=== PATIENT | male | born 1955 ===

== ENCOUNTER 2020-01-03 08:48 | Outpatient (REF) | payer OTHER, SELFPAY ==
[2020-01-03 09:50] LABS: MANUAL DIFF FLAG NO
[2020-01-03 10:02] LABS: Basophils Percent Auto 0.5 % (0-2); Eosinophils Absolute Auto 0.1 X10*3/uL (0.0-0.4); Eosinophils Percent Auto 1.8 % (0-4); Hematocrit 44.4 % (42-52); Hemoglobin 14.9 g/dl (14.0-18.0); Imm Gran Abs Auto 0.02 X10*3/uL (0.00-0.03); Imm Gran Pct Auto 0.5 % (0.0-0.4); Lymphocytes Percent Auto 25.6 % (20-40); Mean Corpuscular HGB Conc 33.6 g/dl (31.0-36.0); Mean Corpuscular Hemoglobin 33.5 pg (27.0-33.0); Mean Corpuscular Volume 99.8 fL (80-98); Mean Platelet Volume 10.2 fL (9.4-12.4); Monocytes Absolute Auto 0.4 X10*3/uL (0.1-1.2); Monocytes Percent Auto 11.4 % (2-11); Neutrophils Absolute Auto 2.3 X10*3/uL (2.0-8.3); Neutrophils Percent Auto 60.2 % (45-73); Platelet Count 154 X10*3/uL (160-400); Red Blood Count 4.45 X10*6/uL (4.60-5.80); Red Cell Distribution Width 12.5 % (11.0-16.0); White Blood Count 3.9 X10*3/uL (4.8-10.8)
[2020-01-03 10:28] LABS: Anion Gap 11 (12-20); Blood Urea Nitrogen 18 mg/dL (9-16); Calcium 9.2 mg/dL (8.4-10.2); Carbon Dioxide 29 mmol/L (22-29); Chloride 106 mmol/L (96-108); Cholesterol 153 mg/dL; Estimated Glomerular Filt Rate 56; Glucose Random 130 mg/dL (60-115); HDL Cholesterol 38 mg/dL; LDL Cholesterol Calculated 82 mg/dl; Potassium 4.6 mmol/l (3.3-5.1); Sodium 141 mmol/L (135-145); Triglycerides 165 mg/dL
[2020-01-03 10:51] LABS: TSH reflex Free T4 3.09 mIU/mL (0.32-4.0)
== END 2020-01-03 08:49 | disposition home or self-care (01) ==
LOC: HO.LAB 08:48
PROVIDERS: PCP Internal Medicine; Visit Provider Internal Medicine Cardiovascular Disease
DX: I95.1 Orthostatic hypotension (principal); I25.10 Atherosclerotic heart disease of native coronary artery without angina pectoris; Z95.5 Presence of coronary angioplasty implant and graft
CPT/HCPCS: 36415; 80048; 80061; 84443; 85025

== ENCOUNTER 2020-01-30 10:54 | Outpatient (REF) | payer OTHER, SELFPAY | END 2020-01-30 10:55 | disposition home or self-care (01) | LOC: HO.LAB 10:54 | PROVIDERS: Visit Provider Internal Medicine | DX: Z20.828 Contact with and (suspected) exposure to other viral communicable diseases (principal) | CPT/HCPCS: U0003 ==

== ENCOUNTER 2020-02-16 10:16 | Outpatient (REF) | payer OTHER, SELFPAY | END 2020-02-16 10:17 | disposition home or self-care (01) | LOC: HO.LAB 10:16 | PROVIDERS: Visit Provider Internal Medicine | DX: Z20.828 Contact with and (suspected) exposure to other viral communicable diseases (principal) | CPT/HCPCS: C9803; U0003 ==

== ENCOUNTER → 2020-06-07 14:40 | Outpatient (BNV) | payer OTHER, SELFPAY | PROVIDERS: PCP Internal Medicine; Visit Provider Internal Medicine Medical Oncology | DX: C81.90 Hodgkin lymphoma, unspecified, unspecified site (principal); E53.8 Deficiency of other specified B group vitamins | CPT/HCPCS: 99213; 99214 ==

== ENCOUNTER → 2020-12-16 13:03 | Outpatient (BNVA) | payer OTHER, SELFPAY | PROVIDERS: PCP Internal Medicine; Referring Provider Internal Medicine; Visit Provider Internal Medicine Cardiovascular Disease | DX: I25.10 Atherosclerotic heart disease of native coronary artery without angina pectoris (principal); I95.1 Orthostatic hypotension; I49.8 Other specified cardiac arrhythmias; Z85.71 Personal history of Hodgkin lymphoma; Z94.84 Stem cells transplant status; Z95.5 Presence of coronary angioplasty implant and graft; Z79.899 Other long term (current) drug therapy | CPT/HCPCS: 93005 ==

== ENCOUNTER 2021-02-25 12:20 | Outpatient (REF) | payer OTHER, SELFPAY ==
[2021-02-25 14:21] LABS: COVID-19 Test Negative (Negative)
== END 2021-02-25 12:21 | disposition home or self-care (01) ==
LOC: HO.LAB 12:20
PROVIDERS: PCP Internal Medicine; Visit Provider Internal Medicine
DX: Z20.822 Contact with and (suspected) exposure to COVID-19 (principal)
CPT/HCPCS: 36415; 87635; C9803

== ENCOUNTER 2021-03-29 12:17 | Outpatient (REF) | payer OTHER, SELFPAY ==
[2021-03-29 14:27] LABS: Binax Internal Control QC Valid; Binax Now Covid-19 Ag Positive (Negative)
[2021-03-29 14:28] LABS: Binax Lot number: 9864
== END 2021-03-29 12:18 | disposition home or self-care (01) ==
LOC: HO.LAB 12:17
PROVIDERS: Visit Provider Internal Medicine
DX: Z20.822 Contact with and (suspected) exposure to COVID-19 (principal)
CPT/HCPCS: 36415; C9803

== ENCOUNTER 2021-12-06 09:48 | Outpatient (REF) | payer OTHER, SELFPAY ==
[2021-12-06 09:55] LABS: MANUAL DIFF FLAG NO
[2021-12-06 10:27] LABS: Basophils Percent Auto 0.7 % (0-2); Eosinophils Absolute Auto 0.1 X10*3/uL (0.0-0.4); Eosinophils Percent Auto 1.7 % (0-4); Hematocrit 43.5 % (42.0-52.0); Imm Gran Abs Auto 0.01 X10*3/uL (0.00-0.03); Imm Gran Pct Auto 0.3 % (0.0-0.4); Lymphocytes Percent Auto 32.6 % (20-40); Mean Corpuscular HGB Conc 34.5 g/dl (31.0-36.0); Mean Corpuscular Hemoglobin 34.2 pg (27.0-33.0); Mean Corpuscular Volume 99.3 fL (80.0-98.0); Mean Platelet Volume 10.5 fL (9.4-12.4); Monocytes Absolute Auto 0.3 X10*3/uL (0.1-1.2); Monocytes Percent Auto 11.4 % (2-11); Neutrophils Absolute Auto 1.6 x10*3/uL (2.0-8.3); Neutrophils Percent Auto 53.3 % (45-73); Platelet Count 175 X10*3/uL (160-400); Red Blood Count 4.38 X10*6/uL (4.60-5.80); Red Cell Distribution Width 12.5 % (11.0-16.0)
[2021-12-06 10:55] LABS: Alanine Aminotransferase 31 U/L (0-40); Albumin Level 4.5 g/dL (3.5-5.0); Alkaline Phosphatase 102 U/L (39-117); Anion Gap 15 (12-20); Aspartate Amino Transferase 21 U/L (5-37); Bilirubin Total 1.9 mg/dL (0.0-1.0); Blood Urea Nitrogen 18 mg/dL (9-16); Calcium 9.5 mg/dL (8.4-10.2); Carbon Dioxide 27 mmol/L (22-29); Chloride 104 mmol/L (96-108); Estimated Glomerular Filt Rate 55; Glucose Random 107 mg/dL (60-115); Potassium 4.1 mmol/L (3.3-5.1); Sodium 142 mmol/L (135-145); Total Protein 6.7 g/dL (6.5-8.0)
[2021-12-06 11:04] LABS: Lactate Dehydrogenase 159 U/L (118-273)
== END 2021-12-06 09:49 | disposition home or self-care (01) ==
LOC: HO.LAB 09:48
PROVIDERS: Internal Medicine Medical Oncology; PCP Internal Medicine; Visit Provider Internal Medicine Cardiovascular Disease
DX: C81.90 Hodgkin lymphoma, unspecified, unspecified site (principal)
CPT/HCPCS: 36415; 80053; 83615; 85025

== ENCOUNTER → 2021-12-08 13:03 | Outpatient (BNVA) | payer OTHER, SELFPAY | PROVIDERS: PCP Internal Medicine; Referring Provider Internal Medicine; Visit Provider Internal Medicine Cardiovascular Disease | DX: I25.10 Atherosclerotic heart disease of native coronary artery without angina pectoris (principal); I95.1 Orthostatic hypotension | CPT/HCPCS: 93005 ==

== ENCOUNTER 2021-12-11 12:55 | Outpatient (REF) | payer OTHER, SELFPAY ==
[2021-12-11 13:20] LABS: MANUAL DIFF FLAG NO
[2021-12-11 14:09] LABS: Basophils Percent Auto 0.3 % (0-2); Eosinophils Percent Auto 1.4 % (0-4); Hematocrit 41.7 % (42.0-52.0); Hemoglobin 14.3 g/dl (14.0-18.0); Imm Gran Abs Auto 0.01 X10*3/uL (0.00-0.03); Imm Gran Pct Auto 0.3 % (0.0-0.4); Lymphocytes Absolute Auto 1.1 X10*3/uL (1.2-4.9); Lymphocytes Percent Auto 36.5 % (20-40); Mean Corpuscular HGB Conc 34.3 g/dl (31.0-36.0); Mean Corpuscular Hemoglobin 33.5 pg (27.0-33.0); Mean Corpuscular Volume 97.7 fL (80.0-98.0); Monocytes Absolute Auto 0.3 X10*3/uL (0.1-1.2); Monocytes Percent Auto 11.1 % (2-11); Neutrophils Absolute Auto 1.5 x10*3/uL (2.0-8.3); Neutrophils Percent Auto 50.4 % (45-73); Platelet Count 138 X10*3/uL (160-400); Red Blood Count 4.27 X10*6/uL (4.60-5.80); Red Cell Distribution Width 12.5 % (11.0-16.0); White Blood Count 2.9 X10*3/uL (4.8-10.8)
[2021-12-11 14:35] LABS: Alanine Aminotransferase 28 U/L (0-40); Albumin Level 4.4 g/dL (3.5-5.0); Alkaline Phosphatase 100 U/L (39-117); Anion Gap 14 (12-20); Aspartate Amino Transferase 21 U/L (5-37); Bilirubin Total 1.5 mg/dL (0.0-1.0); Blood Urea Nitrogen 16 mg/dL (9-16); Calcium 9.6 mg/dL (8.4-10.2); Carbon Dioxide 25 mmol/L (22-29); Chloride 107 mmol/L (96-108); Cholesterol 136 mg/dL; Estimated Glomerular Filt Rate > 60; Glucose Random 90 mg/dL (60-115); HDL Cholesterol 39 mg/dL; LDL Cholesterol Calculated 76 mg/dl; Potassium 4.2 mmol/L (3.3-5.1); Sodium 142 mmol/L (135-145); Total Protein 6.6 g/dL (6.5-8.0); Triglycerides 108 mg/dL
[2021-12-11 14:47] LABS: Lactate Dehydrogenase 178 U/L (118-273)
== END 2021-12-11 12:56 | disposition home or self-care (01) ==
LOC: HO.LAB 12:55
PROVIDERS: Internal Medicine Medical Oncology; Visit Provider Internal Medicine Cardiovascular Disease
DX: C81.90 Hodgkin lymphoma, unspecified, unspecified site (principal); I25.10 Atherosclerotic heart disease of native coronary artery without angina pectoris
CPT/HCPCS: 36415; 80053; 80061; 83615; 85025

== ENCOUNTER 2023-01-26 12:40 | Outpatient (AMB) | payer OTHER, SELFPAY ==
[2023-01-26 12:46] VITALS: BP 110/70; PULSE 82; BMI 24.4
--- NOTE | 2023-01-26 12:46 | MHC.OFFVIS ---
Intake Vital Signs 01/26/23 12:46 Height 5 ft 10 in Weight 169 lb 12.095 oz BMI 24.4 BP 110/70 Blood Pressure Location Lt brachial Position Sitting Pulse 82 Intake Visit Reasons: 1 year follow up Intake Note: 1 year follow-up with ekg feeling good Uniform Maker Required: No Allergies No Known Allergies Allergy (Verified 04/20/22 08:30) Medication List - Last Reconciled 01/26/23 by Chandu Boswell MD aspirin 81 mg PO DAILY atorvastatin 40 mg PO DAILY nitroglycerin 0.4 mg sublingual .prn HPI HPI Comments History of Present Illness Details Esteban comes for follow-up. He is recuperating for review from recent COVID. He denies any exertional symptoms of chest discomfort walking at a 4 miles an hour pace. Occasionally gets lightheaded especially when he gets up from a stooping posture. No syncopal episodes. No heart failure symptoms. Takes all his medications. Last LDL of 69 mg/dL. Taking all his medications. [facility] Medical History Kidney stone Orthostatic hypotension dysautonomic syndrome CAD (coronary artery disease) History of Hodgkin's lymphoma Surgical History Stented coronary artery H/O stem cell transplant Family History Father Diabetes Brother Hx of thyroid disease Brother Hx of thyroid disease Sister Hx of thyroid disease Sister Hx of thyroid disease Sister Hx of thyroid disease Sister Hx of thyroid disease Sister Hx of thyroid disease Social History Household Members: Spouse Housing: House Are you a primary acute care physical therapist to a significant other at home: No Do you presently have visiting nurse or other home services: No Alcohol intake: former Patient Tobacco Use Status: Never used Tobacco service: No Current occupational status: employed Review [employer] Systems Const Denies chills, Denies fatigue, Denies fever(s), Denies frequent falls, Denies weakness, Denies weight gain and Denies weight loss ENT Denies dizziness Card Denies chest pain, Denies leg edema, Denies lightheadedness, Denies palpitations, Denies dyspnea, Denies dyspnea on exertion, Denies orthopnea and Denies other (loss of consciousness) Resp Denies cough, Denies dyspnea and Denies dyspnea on exertion GI Denies hematochezia and Denies change in stool character Musc Denies abnormal gait, Denies muscle weakness, Denies numbness, Denies radiating pain into limb and Denies tingling Neuro Denies abnormal gait, Denies dizziness, Denies frequent falls, Denies numbness, Denies tingling and Denies weakness Endo Denies fatigue and Denies palpitations Physical Exam Vital Signs: Last Vital Signs Pulse 82 01/26/23 12:46 BP 110/70 01/26/23 12:46 BMI result Body Mass Index 24.4 Const General: cooperative, comfortable, no acute distress, alert, awake and well groomed Nutritional Appearance: thin Orientation/consciousness: patient oriented x3 Limitations: no limitations Neck Neck: Yes trachea midline, Yes supple and Yes no JVD Resp Effort & Inspection: normal respiratory effort Auscultation: clear to auscultation bilaterally Cardio Jugular venous distension: no JVD Palpation: normal PMI Rate: regular rate Rhythm: regular rhythm Heart sounds: S1 normal heart sound present, S2 normal heart sound present, no click, no gallops, no murmurs and no rubs Peripheral pulses: Peripheral pulses 2+ throughout Skin General skin exam: no rashes or lesions noted Neuro General: patient oriented x3 and no focal motor deficits Extrem General: Yes no clubbing, cyanosis or edema Psych Appearance: grossly normal Office Procedures EKG Details: EKG shows normal sinus rhythm with normal EKG [id number], Complete Assessment & Plan Assessment & Plan (1) CAD (coronary artery disease): Code(s): I25.10 - Atherosclerotic heart disease of [place] coronary artery without angina pectoris Plan: CAD status post prior stenting of the LAD with bare metal stent many years ago. No recent symptoms of angina at high workload. Continue aggressive medical therapy. Low-dose aspirin therapy for life. LDL is well optimized on high-intensity statin therapy. Advised to maintain activity level as tolerated. (2) Orthostatic hypotension dysautonomic syndrome: Code(s): I95.1 - Orthostatic hypotension Plan: Patient with this are not mix syndrome with orthostatic symptoms still persistent but much better controlled currently. His symptoms are controlled with increase fluid and salt think a. Advised to continue the same. Orthostatic precautions were discussed. Will follow up in the clinic in 1 year's time, sooner p.r.n.. Thank you for allowing me to partake in his care Coding Level of Care Code Est Pt Level 4 (96293) Diagnoses CAD (coronary artery disease) I25.10 Orthostatic hypotension dysautonomic syndrome I95.1 CPT Codes EKG - CPT: 54345-[id number], Complete ([id number])
== END 2023-01-26 13:13 | disposition home or self-care (01) ==
PROVIDERS: Visit Provider Internal Medicine Cardiovascular Disease
DX: I25.10 Atherosclerotic heart disease of native coronary artery without angina pectoris (principal); I95.1 Orthostatic hypotension
CPT/HCPCS: 93010; 99214

== ENCOUNTER → 2023-01-26 12:40 | Outpatient (BNVA) | payer OTHER, SELFPAY | PROVIDERS: Visit Provider Internal Medicine Cardiovascular Disease | DX: I25.10 Atherosclerotic heart disease of native coronary artery without angina pectoris (principal); I95.1 Orthostatic hypotension; Z79.82 Long term (current) use of aspirin; Z79.899 Other long term (current) drug therapy | CPT/HCPCS: 93005 ==

== ENCOUNTER 2023-10-22 11:54 | Outpatient (REF) | payer MEDICARE, SELFPAY ==
--- NOTE | ~2023-10-22 | CT_ITS ---
EXAMINATION: CT ABDOMEN AND PELVIS WITHOUT CONTRAST CLINICAL INFORMATION: Renal calculus. COMPARISON: CT scans dating between July 01, 2017 and January 27, 2012. PET CT dated February 11, 2017. TECHNIQUE: Multidetector volumetric imaging was performed from the superior aspect of the liver through the pubic symphysis. Sagittal and coronal reformatted images were obtained on the technologist's workstation. This CT examination was performed using dose optimization techniques as appropriate, variously including the following: *Automated exposure control *Adjustment of mA and/or kV according to patient size (this includes techniques or standardized protocols for targeted exams where dose is matched to indication/reason for exam; i.e. extremities or head) *Use of iterative reconstruction technique DLP: 2014 mGy-cm FINDINGS: LUNG BASES: The lung bases appear clear, with no evidence of inflammation or nodules. LIVER, GALLBLADDER, AND BILIARY TREE: The liver appears unremarkable in size, shape, and attenuation. No focal hepatic lesion or biliary ductal dilatation is appreciated. Unremarkable appearance of the gallbladder. PANCREAS: Unremarkable SPLEEN: Unremarkable ADRENAL GLANDS: Unremarkable KIDNEYS AND URETERS: The kidneys appear unremarkable in size, shape, and attenuation. Punctate, nonobstructing bilateral renal collecting system calcifications. No evidence of hydronephrosis or hydroureter on either side. BLADDER: Unremarkable GASTROINTESTINAL TRACT: Unremarkable appearance of the stomach and small bowel. Few diverticula predominantly involving the sigmoid and descending colon, without evidence of diverticulitis. Normal-appearing distal ileum and appendix. ABDOMINAL WALL: No significant hernia is appreciated. LYMPH NODES: No evidence of adenopathy by size criteria. VASCULAR: Unremarkable PELVIC VISCERA: Unremarkable OSSEOUS STRUCTURES: Unremarkable CT/CT abdomen pelvis wo IV con IMPRESSION: No acute finding. Punctate, nonobstructing bilateral renal collecting system calcifications. No evidence of hydronephrosis or hydroureter on either side. Electronically signed by: Marek Castaneda MD 11/28/2023 01:50 PM EDT
== END 2023-10-22 11:55 | disposition home or self-care (01) ==
LOC: HO.CT 11:54
PROVIDERS: PCP Internal Medicine; Visit Provider Urology
DX: N20.0 Calculus of kidney (principal)
CPT/HCPCS: 74176

== ENCOUNTER 2024-01-19 15:47 | Outpatient (REF) | payer MEDICARE, SELFPAY ==
[2024-01-19 17:32] LABS: Prostate Specific Antigen 0.79 ng/mL (<0.05-4.0)
== END 2024-01-19 15:48 | disposition home or self-care (01) ==
LOC: HO.LAB 15:47
PROVIDERS: PCP Internal Medicine; Visit Provider Urology
DX: N40.0 Benign prostatic hyperplasia without lower urinary tract symptoms (principal); Z12.5 Encounter for screening for malignant neoplasm of prostate
CPT/HCPCS: 36415; 84153

== ENCOUNTER 2024-02-09 09:07 | Outpatient (REF) | payer MEDICARE, SELFPAY ==
[2024-02-09 10:06] LABS: Cholesterol 132 mg/dL (<200); HDL Cholesterol 44 mg/dL (>40); LDL Cholesterol Calculated 65 mg/dL (<100); Triglycerides 117 mg/dL (<150)
== END 2024-02-09 09:08 | disposition home or self-care (01) ==
LOC: HO.LAB 09:07
PROVIDERS: PCP Internal Medicine; Visit Provider Internal Medicine Cardiovascular Disease
DX: I25.10 Atherosclerotic heart disease of native coronary artery without angina pectoris (principal)
CPT/HCPCS: 36415; 80061

== ENCOUNTER 2024-02-11 11:00 | Outpatient (AMB) | payer OTHER, SELFPAY ==
[2024-02-11 11:02] VITALS: BP 110/68; PULSE 94; BMI 23.4
--- NOTE | 2024-02-11 11:02 | A.OFFVIS_ITS ---
Vital Signs 02/11/24 11:02 Height 5 ft 10 in Weight 163 lb 2.273 oz BMI 23.4 BP 110/68 Blood Pressure Location Lt brachial Position Sitting Pulse 94 Intake Visit Reasons: 1 yr f/up Intake Note: 1 year follow-up with ekg feeling good [employer] Required: No Allergies No Known Allergies Allergy (Verified 12/10/23 15:14) Medication List - Last Reconciled 02/11/24 by Chandu Boswell MD aspirin 81 mg PO DAILY atorvastatin 40 mg PO DAILY levothyroxine 50 mcg PO DAILY nitroglycerin 0.4 mg sublingual .prn HPI Comments Details: Gibson comes for follow-up. Overall he has been doing well from cardiac perspective. Maintains activity level and denies any exertional chest pain or shortness of breath but about 2 months ago he felt symptoms of irregular heartbeat at his heart not beating right. Otherwise he has not had any significant symptoms of palpitations. No lightheadedness, syncope. No heart failure symptoms. Takes all his medications. His LDL was well optimized recently. He continues to have symptoms of orthostatic lightheadedness when he gets up too quickly [facility] Medical History Rotator cuff arthropathy of right shoulder Rotator cuff arthropathy Kidney stone Orthostatic hypotension dysautonomic syndrome CAD (coronary artery disease) History of Hodgkin's lymphoma Surgical History Stented coronary artery H/O stem cell transplant Family History Father Diabetes Brother Hx of thyroid disease Brother Hx of thyroid disease Sister Hx of thyroid disease Sister Hx of thyroid disease Sister Hx of thyroid disease Sister Hx of thyroid disease Sister Hx of thyroid disease Social History Household Members: Spouse Housing: House Are you a primary resident care associate to a significant other at home: No Do you presently have visiting nurse or other home services: No Alcohol intake: former Patient Tobacco Use Status: Never used Tobacco service: No Current occupational status: employed Review of Systems Const Denies chills, Denies fatigue, Denies fever(s), Denies frequent falls, Denies weakness, Denies weight gain and Denies weight loss ENT Denies dizziness Card Denies chest pain, Denies leg edema, Denies lightheadedness, Denies palpitations, Denies dyspnea, Denies dyspnea on exertion, Denies orthopnea and Denies other (loss of consciousness) Resp Denies cough, Denies dyspnea and Denies dyspnea on exertion GI Denies hematochezia and Denies change in stool character Musc Denies abnormal gait, Denies muscle weakness, Denies numbness, Denies radiating pain into limb and Denies tingling Neuro Denies abnormal gait, Denies dizziness, Denies frequent falls, Denies numbness, Denies tingling and Denies weakness Endo Denies fatigue and Denies palpitations Physical Exam Vital Signs: Last Vital Signs Pulse 94 02/11/24 11:02 BP 110/68 02/11/24 11:02 BMI result Body Mass Index 23.4 Const General: cooperative, comfortable, no acute distress, alert, awake and well groomed Nutritional Appearance: thin Orientation/consciousness: patient oriented x3 Limitations: no limitations Neck Neck: Yes trachea midline, Yes supple and Yes no JVD Resp Effort & Inspection: normal respiratory effort Auscultation: clear to auscultation bilaterally Cardio Jugular venous distension: no JVD Palpation: normal PMI Rate: regular rate Rhythm: abnormal rhythm with ectopic beats Heart sounds: S1 normal heart sound present, S2 normal heart sound present, no click, no gallops, no murmurs and no rubs Peripheral pulses: Peripheral pulses 2+ throughout Skin General skin exam: no rashes or lesions noted Neuro General: patient oriented x3 and no focal motor deficits Extrem General: Yes no clubbing, cyanosis or edema Psych Appearance: grossly normal Office Procedures EKG Details: EKG shows normal sinus rhythm with frequent PVCs, unifocal [id number], Complete Assessment & Plan Assessment & Plan (1) PVCs (premature ventricular contractions): Code(s): I49.3 - Ventricular premature depolarization Category: Medical Plan: Frequent PVCs noted on today's exam with no obvious significant symptoms or life-limiting symptoms although he had some symptoms about couple months ago. Today while having EKG did not have any symptoms of palpitation skipped heartbeats. Need to rule out structural heart disease as a cause of his new onset frequent PVCs and will suggest a stress echocardiogram as well as echocardiogram near future. Also suggest a Holter monitor to assess for frequency of PVCs that may be a target for treatment. Avoidance of stimulants was discussed. Stress mitigation strategies were discussed. Avoiding pharmacotherapy at this point time given his orthostatic intolerance. (2) CAD (coronary artery disease): Code(s): I25.10 - Atherosclerotic heart disease of [place] coronary artery without angina pectoris Category: Medical Plan: CAD with remote bare metal stent to LAD for exertional angina. Currently doing well. Continue lifelong aspirin therapy. Continue high-intensity statin therapy. LDL is well optimized. Workup as above. Encouraged to maintain act ivity level as tolerated. (3) Orthostatic hypotension dysautonomic syndrome: Code(s): I95.1 - Orthostatic hypotension Category: Medical Plan: Prior history of orthostatic low blood pressures symptoms. Currently doing well. Blood pressure is well optimized advised to maintain adequate hydration. Orthostatic precautions were discussed. Advised to monitor blood pressure at home maintain a log. Will follow up in the clinic in 1 year's time, sooner p.r.n.. Thank you for allowing me to partake in his care Orders: Orders CA echo transthoracic complete Today I49.3 - Ventricular premature depolarization CA echo stress exercise Today I49.3 - Ventricular premature depolarization ECG 3 day holter monitor Today I49.3 - Ventricular premature depolarization Coding Level of Care Code Est Pt Level 4 (48435) Complex EM visit Add On G2211 Diagnoses PVCs (premature ventricular contractions) I49.3 CAD (coronary artery disease) I25.10 Orthostatic hypotension dysautonomic syndrome I95.1 CPT Codes EKG - CPT: 14494-[id number], Complete ([id number])
== END 2024-02-11 11:33 | disposition home or self-care (01) ==
PROVIDERS: PCP Internal Medicine; Visit Provider Internal Medicine Cardiovascular Disease
DX: I49.3 Ventricular premature depolarization (principal); I25.10 Atherosclerotic heart disease of native coronary artery without angina pectoris; I95.1 Orthostatic hypotension
CPT/HCPCS: 93010; 99214; G2211

== ENCOUNTER → 2024-02-11 11:00 | Outpatient (BNVA) | payer OTHER, SELFPAY | PROVIDERS: PCP Internal Medicine; Visit Provider Internal Medicine Cardiovascular Disease | DX: I49.3 Ventricular premature depolarization (principal); I25.10 Atherosclerotic heart disease of native coronary artery without angina pectoris; I95.1 Orthostatic hypotension; Z79.82 Long term (current) use of aspirin; Z79.899 Other long term (current) drug therapy | CPT/HCPCS: 93005 ==

== ENCOUNTER → 2024-03-03 08:06 | Outpatient (REF) | payer MEDICARE, SELFPAY ==
--- NOTE | 2024-03-03 08:10 | HM_ITS ---
* Total monitoring time 3 days. * Underlying rhythm is sinus with an average ventricular rate of 86/Min. * Frequent ventricular ectopy with a burden of 32%. Frequent bigeminy and trigeminy. Unifocal. * Rare supraventricular ectopy. * No significant pauses or high-grade AV blocks. * No patient markers or diary events. MTDD
--- NOTE | 2024-03-03 08:10 | CA_ITS ---
Transthoracic Echocardiogram Patient (Last, First, Middle): Gibson Og M Gender: Male Date of : 1955 Age: 68 Procedure Date: 03/03/2024 Procedure Type: Transthoracic Echocardiogram Location: OP Height: 177.8 cm Weight: 71.22 kg BSA: 1.88 m2 Heart Rate: 70 bpm BP: 112 / 68 mmHg Chief Executive: SB Referring MD: Chandu Boswell MD Symptoms: I49.3 - Ventricular premature depolarization Study Quality: Adequate ECG Rhythm: Sinus Conclusions: - Normal left ventricular cavity size. There is normal left ventricular wall thickness. The left ventricular systolic function is moderately decreased. The visually estimated ejection fraction is between 30-35%. - Normal right ventricular cavity size. There is mildly decreased right ventricular systolic function. Findings Left Ventricle Normal left ventricular cavity size. There is normal left ventricular wall thickness. The left ventricular systolic function is moderately decreased. The visually estimated ejection fraction is between 30-35%. Diastolic function is indeterminate on the basis of available data. Right Ventricle Normal right ventricular cavity size. There is mildly decreased right ventricular systolic function. Atria The left atrium is likely dilated. Aortic Valve Normal aortic valve structure and function. There is no aortic valve stenosis. There is trace (trivial) aortic valve regurgitation. Mitral Valve The mitral valve appears normal. There is trace mitral valve regurgitation. There is no mitral valve stenosis. Pulmonic Valve The pulmonic valve is likely normal. Tricuspid Valve Normal tricuspid valve structure. There is no tricuspid valve regurgitation. Normal right atrial pressure. There is no evidence of pulmonary hypertension. Great Vessels All visible segments of the aorta are normal in size. The visualized portions of the pulmonary artery and branches are normal. Venous The inferior vena cava is normal in size and collapses greater than 50% with inspiration. Pericardium/Pleural There is no evidence of pericardial effusion. Prior Study Comparison Changes noted compared to prior study dated: 12/07/2018. EF 30-35%. Mild RV dysfunction. Measurements 2D Linear Measurements IVSd: 0.76 0.6-0.9/0.6-1.0 cm LVIDd: 4.87 3.9-5.3/4.2-5.9 cm LVIDd Index: 2.59 2.4-3.2/2.2-3.1 cm/m2 LVIDs: 3.76 2.0-3.6 cm LVPWd: 0.60 0.7-1.1 cm LA Diam: 3.30 2.7-3.8/3.0-4.0 cm LAIDs Index: 1.76 1.5-2.3 cm/m2 LV Mass: 131.11 67-162/88-224 g LV Mass Index: 69.74 43-95/49-115 g/m2 LVOT Diam: 2.00 3.0+(-)1.3 cm 2D Systolic Function EF 4C: 40.40 >55% EF 2C: 38.20 >55% Mitral Valve MV Pk E: 0.51 MV PK A: 0.63 MV Decel Time: 361.00 E/A: 0.80 E'Lateral: 5.33 E'Medial: 5.44 E/E' Med: 9.30 E/E' Lat: 9.50 PHT: 106.00 MVA PHT: 2.08 Decel Medina: 1.40 Aortic Valve AoV Pk Mihai: 0.87 AoV Pk Grad: 3.00 TESSIE: 2.37 LVOT LVOT Pk Mihai: 0.61 LVOT Mn Mihai: 0.45 LVOT VTI: 0.13 LVOT Pk Grad: 1.00 LVOT Mn Grad: 1.00 LVOT Diam: 2.00 LVOT Area: 3.14 Diastolic Function MV Pk E: 0.51 MV Pk A: 0.63 E/A: 0.80 E'Medial: 5.44 E/E' Med: 9.30 E' Laterial: 5.33 E/E' Lat: 9.50 Right Ventricle TAPSE (mm): 12.60 TVS' Mihai: 8.38 Tricuspid Valve TR Pk Mihai: 2.07 TR Pk Grad: 17.00 RA Press: 3.00 RVSP: 20.00 Great Vessels Aorta Sinus of Valsalva: 2.90 2.0-3.5 cm Ao Asc: 3.00 2.1-3.4 cm Pulmonary Veins Pulm Vein S/D 0.90 Pulmonary Valve PV Pk Mihai: 0.60 Peak PV Grad: 1.00 Updated in Other Vendor System with Status of Final Estrada Javed MD electronically signed on 03/05/2024 4:48:53 PM with status of Final
--- OUTSIDE RECORDS SUMMARY | 2024-03-08 05:09 | XMS_ITS ---
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 Name Role Phone Don Rojas MD Primary Care Provider Unav ailable Bran Quigley Unavailable [phone] Allergies Allergen (clinical drug ingredient) Drug/Non Drug Allergy documented on EMR Reaction Allergy Type Onset Date Status grapefruit (uncoded) Unknown Allergy Active Medications Medication SIG (Take, Route, Frequency, Duration) Notes Start Date End Date Status Aspirin 81 81 MG 1 tablet Orally Once a day Active Atorvastatin Calcium 20 MG 1 tablet Oral ly Once a day Active Nitro-Bid PRN Active Social History Tobacco Use: Social History Observation Description Date Details (start date - stop date) Never Smoker NA - NA Tobacco Use/Smoking Question Answer Notes Are you a: nonsmoker Alcohol Screen Question Answer Notes Did you have a drink containing alcohol in the p ast year? No Points 0 Interpretation Negative Tobacco use other than smoking: Question Answer Notes Are you an other tobacco user? No Vital Signs Height 5ft 10in in 01/22/2023 Weight 165 lbs 01/22/2023 BMI 23.67 kg/m2 01/22/2023 Encounters Encounter Location Date Provider Diagnosis [facility] [address] [place] [address] 01/22/2023 Bran Quigley Plan Of Treatment No Information Progress Notes * Gibson OG MDOB: [birth year] (68 yo M)Acc No.[id number]:01/22/2023 Progress Notes Patient:?Gibson OG Provider:?Bran Quigley DPM :1955???Age:67 Y???Sex:Male Fili e:01/22/2023 Address:[address] [place], [place] [id number] Pcp:Don Rojas MD Subjective: * Chief Complaints: * ??? * ROS:?General/Constitutional:?Nausea?denies.?Vomiting?denies.?Hunger Thirst?denies.?Loss appetite?denies.?Chills?denies.?Fatigue?denies.?Fever?denies.?Night Sweats?denies.?Unexplained weight loss?denies.?Unexplained weight gain?denies.?HEENTM:?Dentures?denies.?Dizziness?denies.?Glasses/contacts?admits.?Retinopathy?de nies.?Blurred/double vision?denies.?TMJ?denies.?Discharge/drainage?denies.?Implants?denies.?Sore throat?denies.?Dental implants?denies.?Hard of hearing ?denies.?Difficulty chewing/swallowing/speaking?denies.?Nose bleeds?denies.?Sore mouth?denies.?Respiratory:?On Oxygen?denies.?Pneumonia/pleurisy?denies.?Bronchitis?denies.?Emphysema?denies.?C oughing?denies.?Cough blood?denies.?Shortness of breath?denies.?Wheezing?denies.?Cardiovascular:?Pacemaker?denies.?MVP?denies.?WPW?denies.?CHF?denies.?Heart attack?denies.?Septal defect?denies.?Rapid beat?denies.?Chest pain ?denies.?Atrial Fib.?denies.?Murmur/Palpitations?denies.?Gastrointestinal:?Hemorrhoids?denies.?Stomach/Abdominal pain?denies.?Dark blood stool?denies.?Irritable bowel ?denies.?Constipation?denies.?Diarrhea?denies.?Hematology:?Swelling?denies.?Clots?denies.?Varicose Veins?denies.?Bruising?denies.?Bleeding problem?denies.?Genitourinary:?Blood urine?denies.?Frequent/Painfu/urination/bladder control?denies.?Kidney stones?admits.?Infection (UTI)?denies.?Nephropathy?denies.?sex trans dis (STD)?denies.?Prostate?denies.?Musculoskeletal:?Hammertoes?denies.?Bunions?denies.?Back Pain?denies.?Muscle Cramps/ Resting?denies.?Muscle cramps / walking?denies.?Generalized aches and pains?admits.?Weakness?denies.?Integ.:?Saini?denies.?Scars?denies.?Corns/calluses?denies.?Ingrown nails?denies.?Painful nails?denies.?Open Sores?denies.?Rashes?denies.?Neurologic:?Difficulty sleeping?denies.?Brain disorder?denies.?Numbness?denies.?Balance trouble?denies.?Confusion?denies.?Fainting/blackouts?denies.?Tingling?denies.?Tr emors?denies.? * Medical History:?Broken bone s, Covid-19, Heart disease, Cancer, Transfusions, Rotator cuff concerns. * Surgical History:?Stent 02/27 013. * Family History:?Mother: dece ased.?Father: , foot problems, diagnosed with Diabetic - NIDDM, Other specified conditions influencing health status.? * Social History:?Tobacco Use:?Tobacco Use/Smoking?Are you a:?nonsmoker ?Tobacco use other than smoking?Are you an other tobacco user??No ???Drugs/Alcohol:?Drugs?Have you used drugs other than those for medical reasons in the past 12 months??No ?Alcohol Screen?Did you have a drink containing alcohol in the past year??No ?Points?0 ?Interpretation?Negative ???Miscellaneous:?Caffeine: yes, frequency: , 1-2 cups per day. ?Exercise: yes, walking. ?Marital status: . ?Occupation: [employer]. * Medications:?Taking Nitro-Bi d , Notes to Pharmacist: PRN, Taking Atorvastatin Calcium 20 MG Tablet 1 tablet Orally Once a day , Taking Aspirin 81 81 MG Tablet Chewable 1 tablet Orally Once a day * Allergies:?Grapefruit. Objective: * Vitals:?Ht: 5ft 10in, Wt:165 , BMI:23.67, Shoe size: 9, Ht-cm: 177.8 cm, Wt-k.84 kg. Assessment: Plan: * Treatment: * Images: * The named appointment provid er may or may not be the originator of this progress note, and it is not deemed complete until electronically signed by the appointment provider. Sign off status: Pending * Provider:?Bran Quigley DPM Date:?2022 Generated for Mary hou/Mannie/Сергей on:?03/08/2024 05:09 AM EST
--- OUTSIDE RECORDS SUMMARY | 2024-03-08 05:10 | XMS_ITS ---
Author Organization [facility] Address [address] [place] [address] Care Team Providers Care Human Anatomy Teacher Name Role Phone Crystal SCHULTZ, Don Arreaga Primary Care Provider Unav ailable Bran Quigley Unavailable [phone] Allergies Allergen (clinical drug ingredient) Drug/Non Drug Allergy documented on EMR Reaction Allergy Type Onset Date Status grapefruit (uncoded) Unknown Allergy Active REASON FOR VISIT Foot pain Social History Tobacco Use: Social History Observation [...] Are you an other tobacco user? No Problems Problem Type SNOMED Code ICD Code Onset Dates Problem Status W/U Status Risk Notes Problem Atherosclerosis of [place] arteries of the extremities (466385813445727) Atherosclerosis of [place] artery of both lower extremities, with unspecified presence of clinical manifestation (I70.203) Active confirmed Vital Signs Height 5 ft 8 in in 12/22/2022 Weight 165 lbs 12/22/2022 BMI 25.09 kg/m2 12/22/2022 Encounters Encounter Location Date Provider Diagnosis [facility] [address] [place] [address] 12/22/2022 Bran Soraida Pain in right foot M79.671 ; Pain in right ankle and joints of right foot M25.571 ; Bursitis of intermetatarsal bursa of right foot M77.51 ; Metatarsalgia, right foot M77.41 and Atherosclerosis of [place] artery of both lower extremities, with unspecified presence of clinical manifestation I70.203 Assessments Encounter Date Diagnosis (ICD Code) Assessment Notes Treatment Notes Treatment Clinical Notes Section Notes 12/22/2022 Pain in right foot (ICD-10 - M79.671) 12/22/2022 Pain in right ankle and joints of right foot (ICD-10 - M25.571) 12/22/2022 Bursitis of intermetatarsal bursa of right foot (ICD-10 - M77.51) 12/22/2022 Metatarsalgia, right foot (ICD-10 - M77.41) 12/22/2022 Atherosclerosis of [place] artery of both lower extremities, with unspecified presence of clinical manifestation (ICD-10 - I70.203) Plan Of Treatment Pending Test Test Name Order Date X ray : Foot, right 3V 12/22/2022 Next Appt Details Follow Up: prn, Reason: Progress Notes * Gibson OG MDOB: [birth year] (67 yo M)Acc No.[id number]:12/22/2022 Progress Notes Patient:?Gibson Og Provider:?Bran Quigley DPM :1955???Age:67 Y???Sex:Male Fili e:12/22/2022 Address:[address] [place], [place] [address] Pcp:Don Rojas MD Subjective: * Chief Complaints: * ???Foot pain * HPI: ???Foot Pain:?Location:?Bottom, Forefoot, RIGHT.?Duration:?1 year or more.?Onset:?walking barefoot on hard floors.?Course:?worse.?Treatments:?rest , change in shoes.? * ROS:?General/Constitutional:?Nausea?denies.?Vomiting?denies.?Hunger Thirst?denies.?Loss appetite?denies.?Chills?denies.?Fatigue?denies.?Fever?denies.?Night Sweats?denies.?Unexplained weight loss?denies.?Unexplained weight gain?denies.?HEENTM:?Dentures?denies.?Dizziness?denies.?Glasses/contacts?denies.?Retinopathy?de nies.?Blurred/double vision?denies.?TMJ?denies.?Discharge/drainage?denies.?Implants?denies.?Sore throat?denies.?Dental implants?denies.?Hard of hearing ?denies.?Difficulty chewing/swallowing/speaking?denies.?Nose bleeds?denies.?Sore mouth?denies.?Respiratory:?On Oxygen?denies.?Pneumonia/pleurisy?denies.?Bronchitis?denies.?Emphysema?denies.?C oughing?denies.?Cough blood?denies.?Shortness of breath?denies.?Wheezing?denies.?Cardiovascular:?Pacemaker?denies.?MVP?denies.?WPW?denies.?CHF?denies.?Heart attack?denies.?Septal defect?denies.?Rapid beat?denies.?Chest pain ?denies.?Atrial Fib.?denies.?Murmur/Palpitations?denies.?Gastrointestinal:?Hemorrhoids?denies.?Stomach/Abdominal pain?denies.?Dark blood stool?denies.?Irritable bowel ?denies.?Constipation?denies.?Diarrhea?denies.?Hematology:?Swelling?denies.?Clots?denies.?Varicose Veins?denies.?Bruising?denies.?Bleeding problem?denies.?Genitourinary:?Blood urine?denies.?Frequent/Painfu/urination/bladder control?denies.?Kidney stones?denies.?Infection (UTI)?denies.?Nephropathy?denies.?sex trans dis (STD)?denies.?Prostate?denies.?Musculoskeletal:?Hammertoes?denies.?Bunions?denies.?Back Pain?denies.?Muscle Cramps/ Resting?denies.?Muscle cramps / walking?denies.?Generalized aches and pains?denies.?Weakness?denies.?Integ.:?Saini?denies.?Scars?denies.?Corns/calluses?denies.?Ingrown nails?denies.?Painful nails?denies.?Open Sores?denies.?Rashes?denies.?Neurologic:?Difficulty sleeping?denies.?Brain disorder?denies.?Numbness?denies.?Balance trouble?denies.?Confusion?denies.?Fainting/blackouts?denies.?Tingling?denies.?Tr emors?denies.? * Medical History:? * Surgical History:?Denies Pas t Surgical History * Hospitalization/Major Diagno stic Procedure:?Denies Past Hospitalization * Family History:?No Family Hi story documented..? * Social History:?Tobacco Use:?Tobacco Use/Smoking?Are you a:?nonsmoker ?Tobacco use other than smoking?Are you an other tobacco user??No ???Drugs/Alcohol:?Drugs?Have you used drugs other than those for medical reasons in the past 12 months??No ?Alcohol Screen?Did you have a drink containing alcohol in the past year??No ?Points?0 ?Interpretation?Negative ???Miscellaneous:?Caffeine: yes, frequency: , 1-2 cups per day. ?Exercise: yes, walking. ?Marital status: . ?Occupation: [employer]. * Medications:?None * Allergies:?grapefruit yes[Al su Verified] Objective: * Vitals:?Ht: 5 ft 8 in, Wt:16 5, BMI:25.09, Shoe size:9. * Examination: ???Orthopedic: ?MUSCLE STRENGTH:?5/5 all groups in a symmetrical fashion, B/L.?GAIT ABNORMALITY:?antalgic.?FOOT MORPHOLOGY:?Pes Cavus structure.?MPJ PATHOLOGY:? Pain, swelling, and inflammation to plantar 2nd, MPJ(s), RIGHT, No MPJ pain with ROM, [ - ] Ecchymosis.?X-Rays - IMAGING REPORT: ?Clinical Indication(s):? Evaluate for Fracture.?Views:? 3 views of Foot, AP, LAT, LO, RIGHT.?Findings:?normal bone and soft tissue density consistent for patients age and sex , elongated plantarflexed [ 2nd] metatarsal with hypertrophied MTH.?Fracture:?Negative fractures identified.?Neurological: ?SENSORY:?Neurological exam reveals intact sensorium, pain sensation normal, vibration sensation intact, pinprick sensation is normal in the lower extremities, Pt denies, anesthesia, burning, paresthesia, tingling, B/L.?TINEL'S COMPRESSION:? Negative tarsal tunnel, sandee pedis, and medial calcaneal nerves, Right.?Neuroma Pain: ?PALPATION:?No interspace pain noted on palpation.?Vascular: ?DP PULSES:?1/4, B/L.?PT PULSES:? 0/4, B/L.?CAPILLARY FILL TIME:? delayed, all digits, B/L.?SKIN TEMPERTURE GRADIENT OF THE LOWER EXTERMITIES:? decreased, cool to cool, proximal to distal, B/L.?HAIR GROWTH/TEXTURE/ELASTICITY/TURGOR:? decreased, B/L.?PIGMENTATION:?mottled, B/L.?EDEMA:?absent, B/L.?CLAUDICATION:?denies, B/L.?REST PAIN:?denies, B/L.?Dermatologic: ?SKIN FINDINGS:?Skin exam reveals normal color, texture, elasticity, and turgor. There are no masses, nor excrescences. The interspaces are clear, B/L.?General Examination: ?GENERAL APPEARANCE:?Reveals a pleasant, alert, well nourished, well- developed, well hydrated individual, who demonstrates proper attention to hygiene/body habitus, and is in no acute distress, Pt serves as own historian for office visit today.?ORIENTED:?person, place, and time.? Assessment: * Assessment: 1.?Pain in right ankle and j oints of right foot - M25.571?2.?Pain in right foot - M79.671 (Primary)?3.?Bursitis of intermetatarsal bursa of right foot - M77.51, Chronic problem, Worse (4)?4.?Metatarsalgia, right foot - M77.41, Chronic problem, Worse (4)?5.?Atherosclerosis of [place] artery of both lower extremities, with unspecified presence of clinical manifestation - I70.203? Plan: * Treatment: * Procedure Codes:?51042 X-RAY EXAM OF RIGHT FOOT 3V, Modifiers: 26 , RT * Preventive Medicine:? ??Counseling:?Discussion:?-04: Office or other outpatient visit for the evaluation and management of a new patient, which required a medically appropriate history and/or examination and MODERATE level of DECISION MAKING for: 1 OR MORE CHRONIC PROBLEM(S) THATS WORSENING, 2 STABLE CHRONIC PROBLEMS, A NEWLY DIAGNOSED PROBLEM WITH UNCERTAIN PROGNOSIS, AN ACUTE COMPLICATED INJURY WITH MULTIPLE TREATMENT OPTIONS, OR AN ACUTE PROBLEM WITH ACCOMPANYING SYSTEMIC SYMPTOMS, THAT POSE(S) A MODERATE RISK OF MORBIDITY. THIS CONDITION MAY ALSO INCLUDE RX DRUG MANAGEMENT, OR A DECISON FOR MINOR SURGERY. The visit on the day of the encounter encompassed interpreting the data and educating the patient as to the nature of their condition, treatment options available according to their individual PMH, meds, allergies, and overall health/living conditions, as well as any potential risks or complications that may occur from a failure to adhere to, and participate in, the recommended course of therapy. The discussion included a complete verbal, and/or written explanation of the examination results, any x-rays taken, the proposed diagnosis, and outline of the treatment plan. A schedule for future care needs was also explained. The patient verbalized an understanding of the instructions at this time and agreed to be an active participant in their treatment. If the patient should think of any questions or concerns after the visit, I have encouraged the patient to call the office.?Metatarsalgea:?I explained to the patient the possible etiologies of their Metatarsalgea Foot pain, including foot type/shoegear/activity level/exercise routine and the risks/benefits of all the different treatment options for pain including: No treatment at all, Rest, Ice, NSAIDs(only if well tolerated after meals), New/supportive Shoegear, Strappings and Tapings, Foot/Ankle AFO Bracing, Stretching exercises, Deep Tissue Massage, Arch support/shoe inserts, Custom orthoses, Topical analgesics including Aspercream/Voltaren gel, Physical Therapy, Cortisone injection therapy, EPAT/ESWT. Advantages and disadvantages of each option were discussed and the patients questions re: shoegear, custom vs prefabricated inserts, activity level, PO vs Topical medications (and their respective potential complications/drug interactions/side effects), and consistency in home treatment regimens for optimal success were answered to their verbally confirmed satisfaction.?Orthotics:?I explained to the patient the benefits of OT use. I explained that orthoses are medically necessary to decrease the foot pain through proper mechanical control, support of their foot, decrease pain under the painful metatarsal by supplementing the soft tissue, cushion the forefoot by supplementing the soft tissue.?P.R.I.C.E.:?The patient was counseled on the use of P.R.I.C.E. and NSAIDS (if well tolerated) to aid in the recovery from their painful condition.?Podiatric Surgery Counseling:?Surgical procedures to treat the patients foot problem were discussed. We reviewed the risks of the procedure (described below) vs not having the procedure (persistent pain, deformity, risk for skin ulceration/infection, loss of toe). We discussed the potential procedure complications including, but not limited to: pain, swelling, bleeding, scarring, numbness, infection, delayed/non healing, floppy/unstable/shorthened toe, recurrence, failure of the procedure, overcorrection leading to plantarflexed/downward positioned toe, recurrence, need for further surgery, as well as the possibility for loss of the toe itself. We discussed the use of IV/Local anesthesia, and the usual post-op course for healing. No guarentees were given. The patient verbally indicated a full understanding of the above conversation, and any other of their questions were answered to their satisfaction.?Shoe Gear Counseling:?The patient and I reviewed the types of shoes they should be wearing. My recommendation included obtaining a well-fitted shoe with a good supportive, non-foldable nor twistable sole, plenty of toe/room for the forefoot, and proper arch support. Based on todays examination, I recommended the patient look for new shoes, by having their feet professionally measured. We discussed that generally the best time of the day for a shoe fitting is the afternoon. Different shoes types and brands to best match the patients occupation and vocation were discussed. Specific brand selection will be up to the patient, their individual foot condition/deformities, and fit. The patient and I reviewed the standard new shoe break in period by wearing them for a few hours a day while checking for redness or sores as wear time is increased. The patient verbally confirmed to understanding the information discussed.? * Follow Up:?prn * Images: * Sign off status: Completed true * Provider:?Bran Quigley DPM Date:?2022 Generated for Mary hou/Mannie/Сергей on:?03/08/2024 05:09 AM EST History and Physical Notes * HPI (History of Present Illness) Category Sub-Category Detail Notes Category Not es Foot Pain Location: Bottom, Forefoot, RIGHT Duration: 1 year or more Onset: walking barefoot on hard floors Course: worse Treatments: rest , change in darryl es Examination Category Sub-Category Detail Notes Category Not es Neuroma Pain PALPATION: No interspace pain noted on palpation Neurological SENSORY: Neurological exa m reveals intact sensorium, pain sensation normal, vibration sensation intact, pinprick sensation is normal in the lower extremities, Pt denies, anesthesia, burning, paresthesia, tingling, B/L TINEL'S COMPRESSION: Negative tarsal todd sharmin, sandee pedis, and medial calcaneal nerves, Right Dermatologic SKIN FINDINGS: Skin exam reveal s normal color, texture, elasticity, and turgor. There are no masses, nor excrescences. The interspaces are clear, B/L Orthopedic GAIT ABNORMALITY: antalgic FOOT MORPHOLOGY: Pes Cavus structure MPJ PATHOLOGY: Pain, swelling, and inflammation to plantar 2nd, MPJ(s), RIGHT, No MPJ pain with ROM, [ - ] Ecchymosis MUSCLE STRENGTH: 5/5 all groups in a symmetrical fashion, B/L General Examination GENERAL APPEARANCE: Reveals a pleasant, alert, well nourished, well-developed, well hydrated individual, who demonstrates proper attention to hygiene/body habitus, and is in no acute distress, Pt serves as own historian for office visit today ORIENTED: person, place, and t teresa Vascular DP PULSES(B): 1/4, B/L PT PULSES(B): 0/4, B/L CAPILLARY FILL TIME: delayed, all digits , B/L TEMPERTURE GRADIENT(C): decreased, cool to cool, proximal to distal, B/L TROPHIC CONDITION-TEXTURE/ELASTICITY/TURGOR/HAIR GROWTH(B): decreased, B/L EDEMA(C): absent, B/L CLAUDICATION(C): denies, B/L REST PAIN: denies, B/L PIGMENTATION: mottled, B/L X-Rays - IMAGING REPORT Findings: normal b one and soft tissue density consistent for patients age and sex , elongated plantarflexed [ 2nd] metatarsal with hypertrophied MTH Fracture: Negative fractures i dentified Views: 3 views of Foot, AP, LAT, LO, RIGHT Clinical Indication(s): Evaluate for Fra cture
--- OUTSIDE RECORDS SUMMARY | 2024-03-08 05:10 | XMS_ITS ---
Author Organization [facility] Address [address] [place] [address] Care Team Providers Care Hospice Nurse Name Role Phone Crystal SCHULTZ, Don Arreaga Primary Care Provider Unav ailable Bran Quigley Unavailable [phone] ivett/milena Encounters Encounter Location Date Provider Diagnosis [facility] [address] [place] [address] 12/18/2022 Bran Quigley Plan Of Treatment No Information Progress Notes * Gibson OG MDOB: [birth year] (68 yo M)Acc No.[id number]:12/18/2022 Progress Notes Patient:?Gibson OG Provider:?Bran Quigley DPM :1955???Age:67 Y???Sex:Male Fili e:12/18/2022 Address:[address] [place] [id number] Pcp:Don Rojas MD Subjective: * Chief Complaints: * ???1. Dr marie * Medical History:? Objective: * Vitals:? Assessment: Plan: * Treatment: * Images: * The named appointment provid er may or may not be the originator of this progress note, and it is not deemed complete until electronically signed by the appointment provider. Sign off status: Pending * Provider:?Bran Quigley DPM Date:?2022 Generated for Mary hou/Mannie/Júnioritting on:?03/08/2024 05:09 AM EST
--- OUTSIDE RECORDS SUMMARY | 2024-03-08 05:10 | XMS_ITS | Patient Health Record ---
Author Organization [facility] Address [address] [facility] [place] [address] Care Team Providers Care Cancer Registry Coordinator Name Role Phone Crystal SCHULTZ, Don Arreaga Primary Care Provider Unav ailable Bran Quigley Unavailable [phone] Allergies Allergen (clinical drug ingredient) Drug/Non Drug Allergy documented on EMR Reaction Allergy Type Onset Date Status grapefruit (uncoded) Unknown Allergy Active Reason For Referral No Information Medications Medication SIG (Take, Route, Frequency, Duration) [...] W/U Status Risk Notes Problem Atherosclerosis of [place] arteries of the extremities ([id number]) Atherosclerosis of [place] artery of both lower extremities, with unspecified presence of clinical manifestation (I70.203) Active confirmed Plan Of Treatment Pending Test Test Name Order Date X ray : Foot, right 3V 12/22/2022 Insurance Providers Payer Name Payer Address Payer Phone Subscriber Number Group Number Insured Name Patient Relationship to Insured Coverage Start Date Coverage End Date [employer] Preferred [address] [place] [phone] [id number] Gibson Og Self - patient is the insured Medical (General) History Medical History History ICD Code Broken bones covid-19 Heart disease Cancer Transfusions Rotator cuff concerns Surgical History Surgery Date(Month/Year) Stent 02/2013
== END ==
LOC: HO.CARD 08:06
PROVIDERS: PCP Internal Medicine; Visit Provider Internal Medicine Cardiovascular Disease
DX: I49.3 Ventricular premature depolarization (principal)
CPT/HCPCS: 93242; 93306

== ENCOUNTER → 2024-03-03 08:10 | Outpatient (BNV) | payer MEDICARE, SELFPAY | PROVIDERS: PCP Internal Medicine; Visit Provider Internal Medicine Cardiovascular Disease | DX: I51.89 Other ill-defined heart diseases (principal); R94.31 Abnormal electrocardiogram [ECG] [EKG] | CPT/HCPCS: 93306 ==

== ENCOUNTER 2024-03-29 16:23 | Emergency (ER) | payer MEDICARE, SELFPAY ==
--- NOTE | ~2024-03-29 | XR_ITS ---
CLINICAL HISTORY: fall ? rib fractures 6 view, chest and right ribs Comparison: None Findings: No fractures or dislocations. The visualized lungs are normal. IMPRESSION: No acute rib fractures. This document has been electronically signed by: Ridge Huang MD on 03/29/2024 18:04:44
--- NOTE | ~2024-03-29 | CT_ITS ---
CLINICAL HISTORY: trauma CT head without contrast Comparison: None Findings: No intra-axial mass, midline shift, hydrocephalus, or acute hemorrhage. No significant atrophy-like change or white matter disease. There is no sinus or mastoid fluid. The orbits are unremarkable. There is no acute fracture. IMPRESSION: 1. No acute intracranial findings This document has been electronically signed by: Ridge uHang MD on 03/29/2024 19:51:39
--- OUTSIDE RECORDS SUMMARY | 2024-03-29 16:26 | XMS_ITS ---
Author Organization [facility] Address [address] [place] [address] Care Team Providers Care Professional Healthcare Representative Name Role Phone Crystal SCHULTZ, Don Arreaga Primary Care Provider Unav ailable Bran Quigley Unavailable [phone] Allergies Allergen (clinical drug ingredient) Drug/Non Drug [...] W/U Status Risk Notes Problem Atherosclerosis of [place] arteries of the extremities ([id number]) Atherosclerosis of [place] artery of both lower extremities, with unspecified presence of clinical manifestation (I70.203) Active confirmed Vital Signs Height 5 ft 8 in in 12/22/2022 Weight 165 lbs 12/22/2022 BMI 25.09 kg/m2 12/22/2022 Encounters Encounter Location Date Provider Diagnosis [facility] [address] [place] [address] 12/22/2022 Bran Soraida Pain in right foot M79.671 ; Pain in right ankle and joints of right foot M25.571 ; Bursitis of intermetatarsal bursa of right foot M77.51 ; Metatarsalgia, right foot M77.41 and Atherosclerosis of [place] artery of both lower extremities, with unspecified [...] foot (ICD-10 - M77.41) 12/22/2022 Atherosclerosis of [place] artery of both lower extremities, with unspecified presence of clinical manifestation (ICD-10 - I70.203) Plan Of Treatment Pending Test Test Name Order Date X ray : Foot, right 3V 12/22/2022 Next Appt Details Follow Up: prn, Reason: Progress Notes * Gibson OG MDOB: [birth year] (67 yo M)Acc No.[id number]:12/22/2022 Progress Notes Patient:?Gibson Og Provider:?Bran Quigley DPM :1955???Age:67 Y???Sex:Male Fili e:12/22/2022 Address:[address] [place], [place] [address] Pcp:Don Rojas MD Subjective: * Chief Complaints: [...] - M77.41, Chronic problem, Worse (4)?5.?Atherosclerosis of [place] artery of both lower extremities, with unspecified presence of clinical manifestation - I70.203? Plan: * Treatment: * Procedure Codes:?17698 X-RAY EXAM OF RIGHT FOOT 3V, Modifiers: [...] Quigley DPM Date:?2022 Generated for Mary hou/Mannie/Сергей on:?03/29/2024 04:25 PM EST History and Physical Notes * HPI [...] visit today ORIENTED: person, place, and t treesa Vascular DP PULSES (B): 1/4, B/L PT PULSES (B): 0/4, B/L CAPILLARY FILL TIME: delayed, all digits , B/L TEMPERTURE GRADIENT (C): decreased, cool to cool, proximal to distal, B/L TROPHIC CONDITION-TEXTURE/ELASTICITY/TURGOR/HAIR GROWTH (B): decreased, B/L EDEMA (C): absent, B/L CLAUDICATION (C): denies, B/L REST PAIN: denies, B/L PIGMENTATION: mottled, B/L X-Rays - IMAGING REPORT Findings: normal b one and soft tissue density consistent for patients age and sex , elongated plantarflexed [ 2nd] metatarsal with hypertrophied MTH Fracture: Negative fractures i dentified Views: 3 views of Foot, AP, LAT, LO, RIGHT Clinical Indication(s): Evaluate for Fra cture
--- OUTSIDE RECORDS SUMMARY | 2024-03-29 16:26 | XMS_ITS | Patient Health Record ---
Author Organization [facility] Address [address] [facility] [address] Care Team Providers Care Casting Assistant Name Role Phone Crystal SCHULTZ, Don Arreaga Primary Care Provider Unav ailable Bran Quigley Unavailable [phone] Allergies Allergen (clinical drug ingredient) Drug/Non Drug [...] W/U Status Risk Notes Problem Atherosclerosis of [place] arteries of the extremities ([id number]) Atherosclerosis of [place] artery of both lower extremities, with unspecified presence of clinical manifestation (I70.203) Active confirmed Plan Of Treatment Pending Test Test Name Order Date X ray : Foot, right 3V 12/22/2022 Insurance Providers Payer Name Payer Address Payer Phone Subscriber Number Group Number Insured Name Patient Relationship to Insured Coverage Start Date Coverage End Date [employer] Preferred [address] [place] [phone] [id number] Gibson Og Self - patient is the insured Medical (General) History Medical History History ICD Code Broken bones covid-19 Heart disease Cancer Transfusions Rotator cuff concerns Surgical History Surgery Date(Month/Year) Stent 02/2013
--- OUTSIDE RECORDS SUMMARY | 2024-03-29 16:26 | XMS_ITS ---
Author Organization [facility] Address [address] [place] [address] Care Team Providers Care Brush Maker Machine Name Role Phone Crystal SCHULTZ, Don Arreaga Primary Care Provider Unav ailable Bran Quigley Unavailable [phone] ivett/milena Encounters Encounter Location Date Provider Diagnosis [facility] [address] [place] [address] 12/18/2022 Bran Quigley Plan Of Treatment No Information Progress Notes * Gibson OG MDOB: [birth year] (68 yo M)Acc No.[id number]:12/18/2022 Progress Notes Patient:?Gibson OG Provider:?Bran Quigley DPM :1955???Age:67 Y???Sex:Male Fili e:12/18/2022 Address:[address] [place] [address] Pcp:Don Rojas MD Subjective: * Chief Complaints: [...] DPM Date:?2022 Generated for Mary hou/Mannie/Сергей on:?03/29/2024 04:26 PM EST
[2024-03-29 16:50] VITALS: BP 115/74; PULSE 85; RESP 18; TEMP 36.6; O2SAT 100; BMI 23.8
[2024-03-29 20:44] VITALS: BP 108/59; PULSE 87; RESP 16; TEMP 36.6; O2SAT 98
--- NOTE | 2024-03-29 21:24 | ED_ITS ---
HPI - Fall General Chief Complaint: Fall Stated Complaint: R Side and Back Pain Fall Time Seen by Provider: 03/29/24 20:30 Source: patient Limitations: no limitations History of Present Illness ED Provider: Ricarda Potter PA-C HPI Narrative: 68-year-old male with a history of Hodgkin's lymphoma, orthostatic hypotension, coronary artery disease, hyperlipidemia, hypothyroidism presents after fall that occurred 4 days ago. Patient states he slipped and fell, landing on his right side. Patient complains of right posterior mid back pain. Patient did strike his head. There was no loss consciousness. Patient does take aspirin. Patient is being assessed now due to delayed onset of acute pain. Patient states he was coughing today, and developed extreme pain over his right mid back. Pain worse with movement coughing and breathing. Related Data Home Medications ?Medication ?Instructions ?Recorded ?Confirmed levothyroxine 50 mcg capsule 50 mcg PO DAILY 02/11/24 02/11/24 Previous Rx's ?Medication ?Instructions ?Recorded nitroglycerin 0.4 mg sublingual 0.4 mg sublingual .prn #25 tabs 02/22/23 tablet atorvastatin 40 mg tablet 40 mg PO DAILY #90 tabs 03/15/23 aspirin 81 mg tablet,delayed 81 mg PO DAILY #90 tabs 02/15/24 release ketorolac 10 mg tablet 10 mg PO Q6H PRN pain #20 tabs 03/29/24 methocarbamol 750 mg tablet 750 mg PO Q8H PRN pain #15 tabs 03/29/24 Allergies Allergy/AdvReac Type Severity Reaction Status Date / Time No Known Allergies Allergy Verified 03/29/24 16:53 Review of Systems Review of Systems: Yes all other systems are reviewed and are negative Constitutional: Constitutional: Denies fatigue, Denies fever(s) and Denies headache(s) ENT: Denies headache(s) and Denies neck pain Cardiovascular: Cardiovascular: Denies chest pain and Denies dyspnea Respiratory: Respiratory: Denies dyspnea Musculoskeletal: Musculoskeletal: Reports back pain and Denies neck pain Neurologic: Denies headache(s) Endocrine: Endocrine: Denies fatigue [facility] Past Medical History Attestation statement: The following information was validated with the patient. Medical History Rotator cuff arthropathy of right shoulder Rotator cuff arthropathy Kidney stone Orthostatic hypotension dysautonomic syndrome CAD (coronary artery disease) History of Hodgkin's lymphoma Surgical History Stented coronary artery H/O stem cell transplant Family History Family History Father Diabetes Brother Hx of thyroid disease Brother Hx of thyroid disease Sister Hx of thyroid disease Sister Hx of thyroid disease Sister Hx of thyroid disease Sister Hx of thyroid disease Sister Hx of thyroid disease Social History Social History Household Members: Spouse Housing: House Are you a primary career technical education instructor to a significant other at home: No Do you presently have visiting nurse or other home services: No Alcohol intake: former Patient Tobacco Use Status: Never used Tobacco Advance Directives: No Advance Directives Information Provided: No Do you have a plan to hurt others: No Plan service: No Current occupational status: employed Physical Exam Vital Signs: Vital Signs: Last Vital Signs Temp 97.8 F 03/29/24 20:44 Pulse 87 03/29/24 20:44 Resp 16 03/29/24 20:44 BP 108/59 L 03/29/24 20:44 Pulse Ox 98 03/29/24 20:44 O2 Del Method Room Air 03/29/24 20:44 BMI result Body Mass Index 23.8 Const: Other: Alert, well-appearing Orientation/consciousness: patient oriented x3 Resp: Effort & Inspection: normal respiratory effort Cardio: Other: Normal peripheral perfusion Back/Spine/Pelvis: Other: No deformity or ecchymosis noted over posterior right midthoracic region Skin: Other: Warm dry no rash Neuro: General: patient oriented x3, gait normal, no focal motor deficits and CN's II-XI intact bilaterally Psych: Other: Calm cooperative Medical Decision Making Medical Decision Making MDM Narrative: 68-year-old male with a history of Hodgkin's lymphoma, orthostatic hypotension, coronary artery disease, hyperlipidemia, hypothyroidism presents after fall that occurred 4 days ago. Patient states he slipped and fell, landing on his right side. Patient complains of right posterior mid back pain. Patient did strike his head. There was no loss consciousness. Patient does take aspirin. Patient is being assessed now due to delayed onset of acute pain. Patient states he was coughing today, and developed extreme pain over his right mid back. Pain worse with movement coughing and breathing. Problem: Age, on aspirin History: Per patient I have considered the following differential diagnoses: Rib fracture, chest wall contusion, intracranial hemorrhage, hemothorax, pneumothorax Plan: Imaging of the head and chest were obtained from triage, there was no acute injury. He has chest wall contusion. We will send with muscle relaxant and anti-inflammatory. No indication for labs. I have independently reviewed the following tests: CT brain: MPRESSION: 1. No acute intracranial findings This document has been electronically signed by: Ridge Huang MD on 03/29/2024 19:51:39 Chest x-ray:Findings: No fractures or dislocations. The visualized lungs are normal. IMPRESSION: No acute rib fractures. This document has been electronically signed by: Ridge Huang MD on 03/29/2024 18:04:44 Discharge Plan Discharge Clinical Impression: Chest wall contusion Patient Disposition: Home, Self-Care Instructions: Rib Contusion (ED) Additional Instructions: You sustained a rib/chest wall contusion. No fractures were identified on the chest x-ray, you do not have pneumonia there was no free fluid within the lung. The CT of your brain was normal as well. See home care instructions. Use the ketorolac for pain, this is an anti-inflammatory. Take it with food. Use the methocarbamol as needed for further pain, this is a muscle relaxant. To note this medication will cause drowsiness do not drive or operate machinery while taking the medication. Follow up with your primary care provider as needed. Prescriptions: New methocarbamol 750 mg tablet 750 mg PO Q8H PRN (Reason: pain) Qty: 15 0RF ketorolac 10 mg tablet 10 mg PO Q6H PRN (Reason: pain) Qty: 20 0RF Rx Instructions: maximum total duration of 5 days from all oral, intranasal, or parenteral formulations. The patient received an intramuscular dose of Toradol here in the emergency department. No Action nitroglycerin 0.4 mg tablet, sublingual 0.4 mg sublingual .prn Qty: 25 2RF Rx Instructions: as needed for Chest pain, take 1 tab under tongue, can repeat X2 every 5 min up to 3 doses atorvastatin 40 mg tablet 40 mg PO DAILY Qty: 90 3RF aspirin 81 mg tablet,delayed release (DR/EC) 81 mg PO DAILY Qty: 90 3RF levothyroxine 50 mcg capsule 50 mcg PO DAILY Print Language: Albanian
[2024-03-29] MEDS: Ketorolac Tromethamine 15 MG/ML VIAL IM (21:36)
[2024-03-29] MEDS: methocarbamoL 750 MG TABLET PO (21:36)
[2024-03-29 21:44] VITALS: BP 108/59; PULSE 87; RESP 16; TEMP 36.6; O2SAT 98
--- NOTE | 2024-03-29 21:45 | PC.NURSE ---
Medicated at discharge. Reports no pain at this time, but reports 9/10 pain when coughing only. Ambulating steadily, no acute distress noted. Calm/cooperative.
== END 2024-03-29 21:44 | disposition home or self-care (01) ==
PROVIDERS: Emergency Provider Emergency Medicine; PCP Internal Medicine
DX: S20.211A Contusion of right front wall of thorax, initial encounter (principal); W00.1XXA Fall from stairs and steps due to ice and snow, initial encounter; Y93.89 Activity, other specified; Y92.018 Other place in single-family (private) house as the place of occurrence of the external cause; Y99.9 Unspecified external cause status
CPT/HCPCS: 70450; 71101; 96372; 99283; 99284; J1885

== ENCOUNTER → 2024-03-29 16:53 | Outpatient (BNV) | payer MEDICARE, SELFPAY | PROVIDERS: PCP Internal Medicine; Visit Provider Specialist | DX: G44.309 Post-traumatic headache, unspecified, not intractable (principal); R07.82 Intercostal pain; W01.198A Fall on same level from slipping, tripping and stumbling with subsequent striking against other object, initial encounter | CPT/HCPCS: 70450; 71101 ==

== ENCOUNTER 2024-03-31 10:19 | Outpatient (REF) | payer MEDICARE, SELFPAY ==
[2024-03-31 11:03] LABS: INTERNATIONAL NORM RATIO 0.9 (0.9-1.1); Prothrombin Time 10.1 SEC (10.9-12.4)
[2024-03-31 11:14] LABS: Anion Gap 12 (12-20); Blood Urea Nitrogen 18 mg/dL (9-16); Calcium 8.8 mg/dL (8.4-10.2); Carbon Dioxide 22 mmol/L (22-29); Chloride 111 mmol/L (96-108); Estimated Glomerular Filt Rate > 60; Glucose Random 113 mg/dL (60-115); Potassium 4.5 mmol/L (3.3-5.1); Sodium 140 mmol/L (135-145)
--- OUTSIDE RECORDS SUMMARY | 2024-03-31 11:42 | XMS_ITS | Patient Health Record ---
Author Organization [facility] Address [address] [place] [address] Care Team Providers Care Survey Engineer Name Role Phone Crystal SCHULTZ, Don Arreaga Primary Care Provider Unav ailable Bran Quigley Unavailable [phone] Allergies Allergen (clinical drug ingredient) Drug/Non Drug [...] W/U Status Risk Notes Problem Atherosclerosis of [place] arteries of the extremities (842795352791889) Atherosclerosis of [place] artery of both lower extremities, with unspecified presence of clinical manifestation (I70.203) Active confirmed Plan Of Treatment Pending Test Test Name Order Date X ray : Foot, right 3V 12/22/2022 Insurance Providers Payer Name Payer Address Payer Phone Subscriber Number Group Number Insured Name Patient Relationship to Insured Coverage Start Date Coverage End Date [employer] Preferred [address] [place] [phone] [id number] Gibson Og Self - patient is the insured Medical (General) History Medical History History ICD Code Broken bones covid-19 Heart disease Cancer Transfusions Rotator cuff concerns Surgical History Surgery Date(Month/Year) Stent 02/2013
--- OUTSIDE RECORDS SUMMARY | 2024-03-31 11:42 | XMS_ITS ---
Author Organization [facility] Address [address] [place] [address] Care Team Providers Care Airplane Cover Maker Name Role Phone Crystal SCHULTZ, Don Arreaga Primary Care Provider Unav ailable Bran Quigley Unavailable [phone] ivett/milena Encounters Encounter Location Date Provider Diagnosis [facility] [address] [place] [address] 12/18/2022 Bran Quigley Plan Of Treatment No Information Progress Notes * Gibson OG MDOB: [birth year] (68 yo M)Acc No.[id number]:12/18/2022 Progress Notes Patient:?Gibson OG Provider:?Bran Quigley DPM :1955???Age:67 Y???Sex:Male Fili e:12/18/2022 Address:[address] [place] [id number] Pcp:Don Rojas MD Subjective: * Chief Complaints: [...] Quigley DPM Date:?2022 Generated for Mary hou/Mannie/Júnioritting on:?03/31/2024 11:41 AM EST
--- OUTSIDE RECORDS SUMMARY | 2024-03-31 11:42 | XMS_ITS ---
Author Organization [facility] Address [address] [place] [address] Care Team Providers Care Wind Field Manager Name Role Phone Crystal SCHULTZ, Don Arreaga Primary Care Provider Unav ailable Bran Quigley Unavailable [phone] Allergies Allergen (clinical drug ingredient) Drug/Non Drug [...] W/U Status Risk Notes Problem Atherosclerosis of [place] arteries of the extremities ([id number]) Atherosclerosis of [place] artery of both lower extremities, with unspecified presence of clinical manifestation (I70.203) Active confirmed Vital Signs Height 5 ft 8 in in 12/22/2022 Weight 165 lbs 12/22/2022 BMI 25.09 kg/m2 12/22/2022 Encounters Encounter Location Date Provider Diagnosis [facility] [address] [place] [address] 12/22/2022 Bran Soraida Pain in right foot M79.671 ; Pain in right ankle and joints of right foot M25.571 ; Bursitis of intermetatarsal bursa of right foot M77.51 ; Metatarsalgia, right foot M77.41 and Atherosclerosis of [place] artery of both lower extremities, with unspecified [...] foot (ICD-10 - M77.41) 12/22/2022 Atherosclerosis of [place] artery of both lower extremities, with unspecified presence of clinical manifestation (ICD-10 - I70.203) Plan Of Treatment Pending Test Test Name Order Date X ray : Foot, right 3V 12/22/2022 Next Appt Details Follow Up: prn, Reason: Progress Notes * Gibson OG MDOB: [birth year] (67 yo M)Acc No.[id number]:12/22/2022 Progress Notes Patient:?Gibson Og Provider:?Bran Quigley DPM :1955???Age:67 Y???Sex:Male Fili e:12/22/2022 Address:[address] [place], [place] [id number] Pcp:Don Rojas MD Subjective: * Chief Complaints: [...] - M77.41, Chronic problem, Worse (4)?5.?Atherosclerosis of [place] artery of both lower extremities, with unspecified presence of clinical manifestation - I70.203? Plan: * Treatment: * Procedure Codes:?01841 X-RAY EXAM OF RIGHT FOOT 3V, Modifiers: [...] Quigley DPM Date:?2022 Generated for Mary hou/Mannie/Сергей on:?03/31/2024 11:41 AM EST History and Physical Notes * [...] person, place, and t te[facility] DP PULSES (B): 1/4, B/L PT [...]
== END 2024-03-31 10:20 | disposition home or self-care (01) ==
LOC: HO.LAB 10:19
PROVIDERS: PCP Internal Medicine; Visit Provider Internal Medicine Cardiovascular Disease
DX: I25.10 Atherosclerotic heart disease of native coronary artery without angina pectoris (principal); I50.20 Unspecified systolic (congestive) heart failure
CPT/HCPCS: 36415; 80048; 85027; 85610

== ENCOUNTER → 2024-04-04 23:59 | Outpatient (BNV) | payer MEDICARE, SELFPAY | PROVIDERS: PCP Internal Medicine; Visit Provider Internal Medicine Cardiovascular Disease | DX: I50.20 Unspecified systolic (congestive) heart failure (principal); I42.9 Cardiomyopathy, unspecified | CPT/HCPCS: 93458; 99152 ==

== ENCOUNTER 2024-04-18 09:29 | Outpatient (AMB) | payer MEDICARE, SELFPAY ==
[2024-04-18 09:44] VITALS: BP 100/58; PULSE 57; BMI 23.8
--- NOTE | 2024-04-18 09:44 | MHC.OFFVIS ---
Vital Signs 04/18/24 09:44 Height 5 ft 10 in Weight 165 lb 12.602 oz BMI 23.8 BP 100/58 L Blood Pressure Location Lt brachial Position Sitting Pulse 57 Pulse Source Pulse Oximeter Intake Visit Reasons: Follow up post cardiac cath Parachute Mender Required: No Allergies No Known Allergies Allergy (Verified 04/18/24 09:48) Medication List - Last Reconciled 04/18/24 by Anabel Villanueva NP-C aspirin 81 mg PO DAILY atorvastatin 20 mg PO DAILY ketorolac 10 mg PO Q6H PRN levothyroxine 50 mcg PO DAILY methocarbamol 750 mg PO Q8H PRN nitroglycerin 0.4 mg sublingual .prn HPI HPI Follow up post cardiac cath: Details: Gibson is a 68-year-old male with past medical history of hyperlipidemia, orthostatic hypotension, CAD, bare metal stent to the LAD who recently had a Holter monitor showing very frequent PVCs. His echocardiogram showed reduced EF and he underwent cardiac catheterization and now presents for follow-up. Today he reports that he did some research on his own. He says he has not had any issues with PVCs in the past. He believes it is related to the levothyroxine he is now taking. He stopped taking levothyroxine 1 week ago and does not plan to go back on it. He follows with his PCP Dr. Rojas for his thyroid issues. He is not noticing any heart palpitations, no lightheadedness, presyncope, syncope. No chest discomfort at rest or with activity. No shortness of breath, PND, orthopnea or edema. He reports good activity tolerance. FORMERLY [facility], 1928–1983 Medical History (Updated 04/18/24 @ 11:28 by Anabel Villanueva NP-Christian) Rotator cuff arthropathy of right shoulder Rotator cuff arthropathy Kidney stone Orthostatic hypotension dysautonomic syndrome CAD (coronary artery disease) History of Hodgkin's lymphoma Surgical History (Updated 04/18/24 @ 11:29 by KATIUSKA FosterC) Stented coronary artery H/O stem cell transplant Family History Father Diabetes Brother Hx of thyroid disease Brother Hx of thyroid disease Sister Hx of thyroid disease Sister Hx of thyroid disease Sister Hx of thyroid disease Sister Hx of thyroid disease Sister Hx of thyroid disease Social History Household Members: Spouse Housing: House Are you a primary physician primary care sports medicine to a significant other at home: No Do you presently have visiting nurse or other home services: No Alcohol intake: former Patient Tobacco Use Status: Never used Tobacco service: No Current occupational status: employed Review of Systems Const All systems reviewed & are unremarkable except as noted in HPI and below ENT Denies dizziness Card Denies chest pain, Denies chest pain at rest, Denies chest pain with activity, Denies rapid heart rate, Denies pedal edema, Denies edema, Denies leg edema, Denies lightheadedness, Denies palpitations, Denies dyspnea, Denies dyspnea on exertion and Denies orthopnea Resp Denies cough, Denies dyspnea and Denies dyspnea on exertion GI Denies hematochezia and Denies change in stool character Musc Denies abnormal gait, Denies limited range of motion, Denies muscle cramps, Denies muscle weakness, Denies numbness, Denies radiating pain into limb, Denies stiffness and Denies tingling Neuro Denies abnormal gait, Denies dizziness, Denies numbness and Denies tingling Endo Denies palpitations Physical Exam Vital Signs: Last Vital Signs Pulse 57 04/18/24 09:44 BP 100/58 L 04/18/24 09:44 BMI result Body Mass Index 23.8 Const General: cooperative, healthy appearing, comfortable and no acute distress Orientation/consciousness: patient oriented x3 Neck Neck: Yes normal visual inspection and Yes no JVD Resp Effort & Inspection: normal respiratory effort Auscultation: clear to auscultation bilaterally, no rales, no rhonchi and no wheezes Cardio Jugular venous distension: no JVD Rate: regular rate Rhythm: regular rhythm Heart sounds: S1 normal heart sound present, S2 normal heart sound present, no murmurs and no rubs Neuro General: patient oriented x3 Extrem General: Yes normal to inspection and No no pedal edema Psych Appearance: grossly normal Mental Status: mental status grossly normal Speech and movement: Normal speech and movement present Assessment & Plan Assessment & Plan (1) PVCs (premature ventricular contractions): Code(s): I49.3 - Ventricular premature depolarization Category: Medical Plan: Recent report of heart palpitations. He had a Holter monitor on 03/03/2020 for 3 days showing sinus rhythm with average heart rate 86, frequent PVCs, burden 32%. He then had echocardiogram showing EF 30-35%, no regional wall motion abnormalities, mildly decreased RV systolic function. He underwent cardiac catheterization on 04/04/2024 showing patent LAD stent and minimal left circumflex irregularities. There was no cardiac catheterization findings that contribute to his very frequent PVCs. I had a long with discussion with him today and he believes his palpitations/PVCs are related to levothyroxine. He says this as a newer medication for him. He says he has never had heart issues like this in the past. He is currently not noticing any concerning palpitations. On exam I do hear some irregularity that it consistent with extrasystoles. He says he stopped levothyroxine 1 week ago. He has follow-up with his PCP in approximately 3 weeks. Recommend that he have his thyroid retested at that time. Will also plan for a Holter monitor in another 3-4 weeks to assess whether his PVC burden has decreased off of the levothyroxine. No medication changes made at this time. Unable to add neurohormonal modulation due to low blood pressure and heart rate at this visit. He has no signs of heart failure on exam. Signs and symptoms of heart failure discussed with him. Continue activity as tolerated. Cardiology follow-up 2 months, sooner if needed (2) S/P cardiac cath: Comment: 04/04/2024, left main normal, lad minimal ISR in the ostial LAD stent, left circumflex minimal irregularities, RCA normal, PA 36/15, mean 23, wedge 16 Code(s): Z98.890 - Other specified postprocedural states Category: Surgical Plan: As above. Right radial catheterization site well healed (3) CAD (coronary artery disease): Code(s): I25.10 - Atherosclerotic heart disease of [place] coronary artery without angina pectoris Category: Medical Plan: As above, patent LAD stent. Continue aspirin indefinitely. Continue atorvastatin with ideal LDL goal less than 70. Labs are followed by his PCP. (4) Orthostatic hypotension dysautonomic syndrome: Code(s): I95.1 - Orthostatic hypotension Category: Medical Plan: Blood pressure runs low. He has history of orthostatic hypotension. Unable to add medications for neurohormonal modulation due to this. (5) Cardiomyopathy: Code(s): I42.9 - Cardiomyopathy, unspecified Category: Medical Plan: New finding for cardiomyopathy as above. Plan Time spent on chart review, documentation, interview assessment Orders: Orders ECG 3 day holter monitor 05/08/24 TRUONG Foster I49.3 - Ventricular premature depolarization Medications: Changed From atorvastatin 40 mg PO DAILY 90 tabs 3RF To atorvastatin 20 mg PO DAILY Gudelia Pickens NP Coding Level of Care Code Est Pt Level 4 (12979) Complex EM visit Add On G2211 Diagnoses PVCs (premature ventricular contractions) I49.3 S/P cardiac cath Z98.890 CAD (coronary artery disease) I25.10 Orthostatic hypotension dysautonomic syndrome I95.1 Cardiomyopathy I42.9 Time Spent (min) 36
--- OUTSIDE RECORDS SUMMARY | 2024-04-18 10:22 | XMS_ITS | Encounter Summary ---
Author Organization [facility] Address [address] [place] [address] Care Team Providers Care Barber Instructor Name Role Phone Don Rojas MD Primary Care Provider [phone] Encounter Details Date Type Department Care Team (Latest Contact Info) Description 04/03/2024 10:43 AM EST - 04/03/2024 11:59 PM [facility] Hospital Encounter XRAY - [place] [address] [place] [address] Pleuritic chest pain; Contusion of chest wall, unspecified laterality, subsequent encounter; Accidental fall, subsequent encounter Discharge Disposition: Home or Self Care Social History Tobacco Use Types Packs/Day Years Used Date Smoking Tobacco: Never Smokeless Tobacco: Never Alcohol Use Standard Drinks/Week Comments No 0 (1 standard drink = 0.6 oz pur e alcohol) Sex and Gender Information Value Date Recorded Sex Assigned at Not on file Gender Identity Not on file Sexual Orientation Not on file Job Start Date Occupation Industry Not on file Not on file Not on file documented as of this encounter Medications at Time of Discharge Medication Sig Dispensed Refills Start Date End Date aspirin 81 mg EC tablet Take 1 tablet (81 mg total) by mouth 1 (one) time each day. 12/30/2023 atorvastatin (LIPITOR) 40 mg tablet Take 0.5 Tablets by mouth. Prescribed by Dr. Henderson at [facility] levothyroxine sodium (TIROSINT) 50 mcg capsule Take 50 mcg by mouth daily. 09/08/2023 nitroglycerin (NITROSTAT) 0.[address] 1 Tablet under the tongue every 5 minutes as needed. Prescribed by Dr. Henderson at [facility] documented as of this encounter Discharge Disposition Disposition Code Departure Means Destination Home or Self Care documented in this encounter Plan of Treatment Upcoming Encounters Date Type Department Care Team (Late st Contact Info) Description 05/11/2024 9:30 AM EST Office Visit Adult Medicine [facility] [address] [place] [address] Don Rojas MD [address] [place] [address] documented as of this encounter Procedures Procedure Name Priority Date/Time Associated Diagnosis Comments XR CHEST 2 VIEWS Routine 04/03/2024 10:5 4 AM EST Pleuritic chest pain Contusion of chest wall, unspecified laterality, subsequent encounter Accidental fall, subsequent encounter documented in this encounter Results * XR Chest 2 Views (04/03/2024 10:54 AM EST) Anatomical Region Laterality Modality Body Radiographic Avril ging 04/03/2024 11:2 4 AM EST Narrative 04/03/2024 11:25 AM EST Chest, 2 views. History chest pain. Comparison with previous studies, latest from 05/05/2016. There is no pneumothorax, pleural effusions or focal consolidations. Cardiomediastinal silhouette is unremarkable. There is no significant interval change since previous examination. CONCLUSIONS: No acute radiographic abnormalities in the chest. No significant interval change -------- FINAL REPORT -------- Dictated By: Darleen Hooker Dictated Date: 04/03/2024 11:24 ET Assigned Physician: Darleen Hooker Reviewed and Electronically Signed By: Darleen Hooker Signed Date: 04/03/2024 11:25 ET Workstation ID: [id number] Transcribed By: Self Edit Transcribed Date: 04/03/2024 11:24 ET Procedure Note Darleen Hooker MD - 04/03/2024 Chest, 2 views. History chest pain. Comparison with previous studies, latest from 05/05/2016. There is no pneumothorax, pleural effusions or focal consolidations.Cardiomediastinal silhouette is unremarkable. There is no significantinterval change since previous examination. CONCLUSIONS: No acute radiographic abnormalities in the chest. Nosignificant interval change -------- FINAL REPORT -------- Dictated By: Darleen Hooker Dictated Date: 04/03/2024 11:24 ET Assigned Physician: Darleen Hooker Reviewed and Electronically Signed By: Darleen Hooker Signed Date: 04/03/2024 11:25 ET Workstation ID: [id number] Transcribed By: Self Edit Transcribed Date: 04/03/2024 11:24 ET Don Rojas MD IMG XR PROCEDURES documented in this encounter Visit Diagnoses Diagnosis Pleuritic chest pain Painful respiration Contusion of chest wall, unspecified laterality, subsequent encounter Accidental fall, subsequent encounter documented in this encounter Care Teams Barber Instructor Relationship Specialty Start Date End Date Don Rojas MD [address] [place] [address] PCP - General 07/21/1997 documented as of this encounter
--- OUTSIDE RECORDS SUMMARY | 2024-04-18 10:22 | XMS_ITS | Clinical Summary ---
Author Organization [facility] Address [address] [place] [address] Phone Care Team Providers Care Hand Striper Name Role Phone Don Rojas MD Primary Care Provider [phone] Allergies No known active allergies Medications Medication Sig Dispensed Refills Start Date End Date Status aspirin 81 mg EC tablet Take 1 tablet (81 mg total) by mouth 1 (one) time each day. 12/30/2023 Active atorvastatin (LIPITOR) 40 mg tablet Take 0.5 Tablets by mouth. Prescribed by Dr. Henderson at [facility] Active levothyroxine sodium (TIROSINT) 50 mcg capsule Take 50 mcg by mouth daily. 09/08/2023 Active nitroglycerin (NITROSTAT) 0.[address] 1 Tablet under the tongue every 5 minutes as needed. Prescribed by Dr. Henderson at [facility] Active Active Problems Problem Noted Date Diagnosed Date Hyperglycemia 02/08/2023 COVID-19 01/10/2023 Overview (02/29/2024): req Paxlovid, to go on line /[place].gov paxlovid Kidney stone 08/05/2022 Overview (02/29/2024): See note/consultation by Dr. Kessler 2021 Subclinical hypothyroidism 03/18/2016 Hypertriglyceridemia 11/30/2015 Coronary artery disease invo lving [place] coronary artery without angina pectoris 02/18/2015 Overview (02/29/2024): stent to LAD, follows with Dr. 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 Gout, unspecified 12/28/2005 Encounters Date Type Department Care Team Description 04/03/2024 10:43 AM EST - 04/03/2024 11:59 PM EST Hospital Encounter [address] [phone] Pleuritic chest pain; Contusion of chest wall, unspecified laterality, subsequent encounter; Accidental fall, subsequent encounter Discharge Disposition: Home or Self Care 04/03/2024 10:15 AM EST Office Visit Adult Medicine [address] [phone] Don Rojas MD Pleuritic chest pain (Primary Dx); Contusion of chest wall, unspecified laterality, subsequent encounter; Accidental fall, subsequent encounter; Hodgkin lymphoma, unspecified Hodgkin lymphoma type, unspecified body region (CMS/HCC); Traumatic injury of head, subsequent encounter; Coronary artery disease involving [place] coronary artery of [place] heart without angina pectoris 03/30/2024 Telephone Adult Medicine [address] [phone] Don Rojas MD Referral (Referral for [facility] Oncology/Hematology) from Last 3 Months Immunizations Name Administration Dates Next Due [id number] (Pentacel) 2mo to less than 5yo 08/25/2015,08/24/2014,06/20/2014 [id number] (Pediarix) 6 w ks to less than 7yo 08/24/2014,06/20/2014 Hepatitis B Pediatric (Enger ix B; Recombivax HB) to less than 20 yo 08/05/2015,08/24/2014,06/20/2014 HiB PRP-T conjugate (Acthib, Hiberix) 6wks and older 06/20/2014 IPV Inactivated polio (Ipol) 6wks and older 08/05/2015,09/24/2014,06/20/2014 Influenza trivalent, 0.5mL ( Fluad) 65yo and older 12/30/2023 Influenza trivalent, 0.5mL, preservative free (Fluarix; FluLaval; Fluzone) ages 6mo and older (Afluria) 3 years and older 01/13/2019,02/15/2017,01/17/2016,01/17 Influenza, Unspecified 01/17/2014 MMR, measles mumps and rubel la Live (Priorix; M-M-R II) 12mo and older 08/05/2015 Meningococcal MCV4P 06/20/2014 Pneumococcal conjugate 13 va lent (Prevnar 13, PCV13) 2mo and older 04/03/2014,01/17/2014,04/03/2000 Pneumococcal polysaccharide 23 valent (Pneumovax 23) 2yo and older 06/20/2014 Td Tetanus diptheria (Tdvax) 7yo and older 12/28/2005 Tdap Tetanus diptheria acell ular pertussis (Boostrix; Adacel) 7yo and older 08/05/2015,08/24/2014,06/20/2014 Surgical History Surgery Date Site/Laterality Comments COLONOSCOPY 08/10/2006 PROCEDURE: HISTORICAL COLONOSCOPY; COMMENT: polyps are granulomatous aggregates. Repeat in two years to exclude Crohn's disease. OTHER SURGICAL HISTORY PROCEDURE: HISTORICAL MELANOMA ROTATOR CUFF REPAIR 04/08/2023 Right PROCEDURE: HISTORICAL ROTATOR CUFF REPAIR; COMMENT: Right rotator cuff repair and augmentation, subacromial decompression, labral debridement. Medical History Medical History Date Comments Gout, unspecified 12/28/2005 DX:Gout, unspe cified Contact dermatitis and other eczema, due to unspecified cause 12/28/2005 DX:Contact dermatitis and ot her eczema, due to unspecified cause Regional enteritis of unspecified site 11/12/2006 DX:Regional enteritis of unspecified site Hypertriglyceridemia 11/15/2006 DX:Hypertri glyceridemia Hodgkin's lymphoma (CMS/HCC) 10/24/2012 DX: Hodgkin's lymphoma (HCC); COMMENT: S/p ABVD chemotherapy Coronary artery disease invo lving [place] coronary artery without angina pectoris 02/18/2015 DX:Coronary ar quynh disease involving [place] coronary artery without angina pectoris; COMMENT: stent to LAD, follows with Dr. Lechuga History of basal cell carcinoma 08/19/2020 DX:History of basal cell carcinoma; COMMENT: BCC 08/16 scalp (nodular) Family History Medical History Relation Name Comments Diabetes Father Stroke Father carotid stentin g Other cancer Mother skin Diabetes Paternal Grandfather started age 55 Thyroid disease Sister 5 sisters, 2 brothers, all have thyroid disease Relation Name Status Comments Father Mother Alive Paternal Grandfather Sister Social History Tobacco Use Types Packs/Day Years Used Date Smoking Tobacco: Never Smokeless Tobacco: Never Tobacco Cessation:Counseling Given: Not Answered Alcohol Use Standard Drinks/Week Comments No 0 (1 standard drink = 0.6 oz pur e alcohol) Sex and Gender Information Value Date Recorded Sex Assigned at Not on file Gender Identity Not on file Sexual Orientation Not on file Job Start Date Occupation Industry Not on file Not on file Not on file Obstetrics History Last Filed Vital Signs Vital Sign Reading Time Taken Comments Blood Pressure 114/74 04/03/2024 10:20 AM EST Pulse 64 04/03/2024 10:20 AM EST Temperature 36.1 ??C (96.9 ??F) 04/03/2024 1 0:20 AM EST Respiratory Rate 20 04/03/2024 10:2 0 AM EST Oxygen Saturation 96% 02/08/2023 8:5 1 AM EST at rest, room air Inhaled Oxygen Concentration - - Weight 72.6 kg (160 lb) 04/03/2024 10:2 0 AM EST Height 177.8 cm (5' 10 ) 04/03/2024 10: 20 AM EST Body Mass Index 22.96 04/03/2024 10:20 AM EST Plan of Treatment Upcoming Encounters Date Type Department Care Team (Late st Contact Info) Description 05/11/2024 9:30 AM EST Office Visit Adult Medicine [facility] [address] [place] [address] Don Rojas MD [address] [place] [address] Health Maintenance Due Date Last Done Comments Zoster Vaccines (1 of 2) 07[birth year]/1974 Hepatitis B Vaccines (3 of 3 - 19+ 3-dose series) 09/30/2015 08/05/2015, 08/05/2015, 08/24/2014, Additional history exists Pneumococcal Vaccine: 65+ Years (3 of 3 - PPSV23 or PCV20) 06/21/2019 06/20/2014, 04/03/2014, 01/17/2014, Additional history exists Depression Screening 03/07/2022 Falls Risk Assessment 03/07/2022 Medicare Annual Wellness Visit 03/07/2022 Social Influencers of Health Screening 03/07/2022 COVID-19 Vaccine ( season) 2023 05/19/2021, 06/26/2020, 06/05/2020 Hypertension/CHF/CAD Annual BMP Blood Test 06/01/2024 06/02/2023, 03/08/2023, 06/03/2022, Additional history exists DTaP,Tdap,and Td Vaccines (10 - Td or Tdap) 08/24/2025 08/25/2015, 08/05/2015, 08/05/2015, Additional history exists Cholesterol Screening (Lipid Panel) 12/27/2028 12/28/2023 Colorectal Cancer Screening: Colonoscopy 04/19/2029 04/19/2019 RSV Immunization Patients 60+ Years Old (1 - 1-dose 75+ series) 07/03/2030 Meningococcal ACWY Vaccine Aged Out 06/20/2014 N o longer eligible based on patient's age to complete this topic MMR Vaccines Aged Out 08/05/2015 No longer eligi ble based on patient's age to complete this topic HIB Vaccines Aged Out 08/25/2015, 11/2015, 08/24/2014, Additional history exists No longer eligible based on patient's age to complete this topic IPV Vaccines Completed 08/25/2015, 11/2015, 08/05/2015, Additional history exists Hepatitis C Screening Completed 11/25/2015 Influenza Vaccine Completed 12/30/2023, , 02/15/2017, Additional history exists HPV Vaccines Aged Out No longer eligi ble based on patient's age to complete this topic Hepatitis A Vaccines Aged Out No long er eligible based on patient's age to complete this topic RSV Immunization Patients Under 20 months Aged Out No longer eligible based on patient's age to complete this topic Varicella Vaccines Aged Out No longer eligible based on patient's age to complete this topic Procedures Procedure Name Priority Date/Time Associated Diagnosis Comments XR CHEST 2 VIEWS Routine 04/03/2024 10:5 4 AM EST Pleuritic chest pain Contusion of chest wall, unspecified laterality, subsequent encounter Accidental fall, subsequent encounter LIPID PANEL Routine 12/28/2023 ANNUAL BMP BLOOD TEST Routine 03/08/2023 COLONOSCOPY Routine 04/19/2019 HEPATITIS C SCREENING Routine 11/25/2015 from Last 3 Months or Most Recently Relevant to Health Maintenance Results * XR Chest 2 Views (04/03/2024 [...] Signed Date: 04/03/2024 11:25 ET Workstation ID: [id number] Transcribed By: Self Edit Transcribed Date: 04/03/2024 [...] Signed Date: 04/03/2024 11:25 ET Workstation ID: [id number] Transcribed By: Self Edit Transcribed Date: 04/03/2024 11:24 ET Don Rojas MD IMG XR PROCEDURES * Lipid panel (12/28/2023) [facility] LDL/HDL Ratio 3 4 Triglycerides 150 150 mg/dL Cholesterol 141 200 mg/dL HDL 42 40 mg/dL LDL Cholesterol 69 100 mg/dL Blood Venous blood specimen / Unknown Historical Provider LAB BLOOD ORDERAB LES * Annual BMP Blood Test (03/08/2023) [facility] [place] Annual BMP Blood Test abstracted Historical Provider MD ANTON WALTON * Colonoscopy (04/19/2019) [facility] [place] Colonoscopy no interpretation , abstracted Anatomical Region Laterality Modality Other Historical Provider MD ANTON WALTON * Hepatitis C Screening (11/25/2015) [facility] [place] Hepatitis C Screening abstracted Historical Provider MD ANTON WALTON E from Last 3 Months or Most Recently Relevant to Health Maintenance Care Teams Hand Striper Relationship Specialty Start Date End Date Don Rojas MD [address] [place] [address] [facility] - General 07/21/1997
--- OUTSIDE RECORDS SUMMARY | 2024-04-18 10:22 | XMS_ITS | Continuity of Care Document ---
Author Organization [facility] ter Address [address] [place] [id number]- Care Team Providers Care Pediatric Occupational Therapist Name Role Phone Crystal SCHULTZ, Gibson Rodriges Primary Care Physician [id number] Date(s): 04/04/24 - 04/04/[address] [id number] Discharge Disposition: A-D/C Home Attending Physician: Estrada Javed MD Admitting Physician: Estrada Javed MD Referring Physician: Estrada Javed MD Encounter Type: Disch Daystay Allergies, Adverse Reactions, Alerts No Known Allergies Medications aspirin 81 mg oral enteric coated tablet 1 tablet = 81 mg, By Mouth, Daily, # 30 tablet, 0 Refills, Maintenance, 02/16/13 5:08:30 PM EST, ECTablet Start Date: 02/16/13 Stop Date: 03/18/13 Status: Ordered Quantity: 30.0 Unit: tablet Repeat number: 1 atorvastatin 40 mg oral tablet 1 tablet = 40 mg, By Mouth, Daily, # 30 tablet, 5 Refills, Maintenance, 04/04/24 7:53:00 AM EST, Tablet, Partial fill upon patient request if the prescription is for a schedule II opioid drug. Start Date: 04/04/24 Status: Ordered Quantity: 30.0 Unit: tablet Repeat number: 1 Entresto 24 mg-26 mg oral tablet 1 tablet, By Mouth, 2 times a day, # 60 tablet, 0 Refills, Maintenance, 04/04/24 9:20:00 AM EST, Tablet, [id number], Partial fill upon patient request if the prescription is for a schedule II opioid drug., 1 tablet By Mouth 2 times a day, 178, cm, 04/04/24 7:43:00 EST, Height Start Date: 04/04/24 Status: Ordered Quantity: 60.0 Unit: tablet Repeat number: 1 levothyroxine 50 mcg (0.05 mg) oral capsule 1 capsule = 50 mcg, By Mouth, Daily, 0 Refills, Maintenance, 04/04/24 7:53:00 AM EST, Partial fill upon patient request if the prescription is for a schedule II opioid drug. Start Date: 04/04/24 Status: Ordered Repeat number: 1 nitroglycerin 0.4 mg sublingual tablet 1 tablet = 0.4 mg, Sublingual, Every 5 minutes, PRN Chest Pain, # 3 tablet, 0 Refills, Maintenance,02/16/13 5:10:47 PM EST, Tablet Start Date: 02/16/13 Status: Ordered Quantity: 3.0 Unit: tablet Repeat number: 1 Vital Signs Most recent to oldest [Reference Range]: 1 2 3 Height 178 cm (04/04/24 7:43 AM) Weight 75.8 kg (04/04/24 7:43 AM) Oxygen Saturation [94-100 %] 97 % (04/04/24 11:45 AM) 96 % (04/04/24 11:30 AM) 95 % (04/04/24 11:00 AM) Pulse Rate [55-90 bpm] 84 bpm (04/04/24 7:43 AM) Body Mass Index [18.5-24.99 kg/m2] 23.92 kg/m2 (04/04/24 7:43 AM) Blood Pressure [90-138/55-84 mm Hg] 118/70mm Hg (04/04/24 11:45 AM) 118/68mm Hg (04/04/24 11:30 AM) 107/63mm Hg (04/04/24 11:00 AM) Respiratory Rate [16-30 br/min] 17 br/min (04/04/24 11:45 AM) 17 br/min (04/04/24 11:30 AM) 16 br/min (04/04/24 11:00 AM) Temperature [96.8-100.4 DegF] 98.2 DegF (04/04/24 7:43 AM) Mode of Delivery (Oxygen) Room air (04/04/24 11:45 AM) Room air (04/04/24 11:30 AM) Room air (04/04/24 11:00 AM) Blood pressure sites Arm, left (04/04/24 9:16 AM) Arm, left (04/04/24 7:45 AM) Arm, right (04/04/24 7:43 AM) Temperature Route Temporal (04/04/24 7:43 AM) Weight Obtained Via Standing scale (04/04/24 7:43 AM) Note * Event Display: Hemodynamic Procedure Report Authored Date: * Briseida Pittman RN: PERFORM, SIGN, VERIFY Event Display: Cardiac Rehab Note Authored Date: Patient: GIBSON VILLAVICENCIO Age: 68 years Sex: Male : 1955 Associated Diagnoses: None Author: Briseida Pittman RN Recommendation and Plan Cardiac Rehab: Chart reviewed. Patient did not have PCI. New EF 30-35%. Recommend f/u with outpatient cardiology to determine if appropriate for phase 2 program. Will sign off.. * Jacquelyn Benites RN: PERFORM Event Display: Discharge/Transfer Note Hospital Authored Date: Nursing Discharge Note Entered On: 04/04/2024 15:32 EST Performed On: 04/04/2024 12:30 EST by Jacquelyn Benites RN Nursing Discharge Note 2 Discharge Time : 04/04/2024 12:30 EST Discharge Level of Care at Discharge : Home/Alf/Foster Care Patient Left Unit Via : Wheelchair Patient Accompanied Off Unit with : Significant other, Responsible adult DC Instructions Provided & Signed by Pt : Yes Patient Understands D/C Instructions : Yes Patient Instructions Discharge Signed : Yes Discharge Comments : Patient discharged without issue - right radial access site stable. No ooze or hematoma. VSS. 100% teachback with all education. Did Pt have Specialty Bed or Wound Vac : No Jacquelyn Benites RN - 04/04/2024 15:31 EST * Jacquelyn Benites RN: PERFORM Event Display: Patient Education/Instruction Authored Date: Inpatient Adult Discharge Instructions. [address] [address] Name: GIBSON VILLAVICENCIO : 1955?? Visit: 04/04/2024 06:35?? Current Date: 04/04/2024 11:33 ?? Account: [id number]?? Inpatient Adult Discharge Instructions We would like to thank you for allowing us to assist you with your healthcare needs. The following includes patient education materials and information regarding your injury/illness. Our entire staffstrives to provide an excellent experience for our patients and their families. PLEASE ENSURE YOU FOLLOW-UP PER THE INSTRUCTIONS BELOW! ?? YOUR OPINION IS IMPORTANT TO US! Please complete the survey you may receive by mail or email. Your feedback will be used to make improvements to the healthcare experiences of our patients and their families. Surveys are administered by [employer] ?? If further treatment with your primary care physician or another doctor is recommended, it is important for you to keep the appointment. Call your primary care physician or return to the Emergency Department immediately if your condition worsens, fails to improve, or new symptoms develop. If you need to find a doctor, you can call [facility] WeVideo Link for a referral at [phone] or toll free at [phone]) or log in to [email or web address].. ?? [facility], in keeping with [facility] guidance, no longer requires face masks for staff, patientsor visitors in most situations. Similiar to time spent indoors at other locations, there is the chance that you were exposed to repiratory viruses during your time with us (such as flu or COVID-19). If you develop symptoms concerning for a viral respiratory infection, please seek testing (and treatment if indicated) from your medical provider or home test kit. ?? You can view and manage your care through the patient portal or by using a health care peggy of your choosing. [facility] is a website that allows you to securely view your medical information including your hospital discharge summary, office visit summaries, medications and follow-up visits. You can also request appointments, renew medications, and request access to your medical information using a health care peggy of your choosing, or just ask a question. You can enroll at [email or web address] or register during your next office visit. You have been discharged from [facility], Patient Care Unit: CARE??. If you have any questions regarding these instructions, including results of studies pending, afteryou leave, please call us and we will be happy to assist you 19/10. [facility] Nursing Unit Direct Phone Number, for 19/10 contact and results of studies pending CARE [address] [place] [address] Your Care Team Attending Physician Estrada Javed MD?? Consulting Providers Estrada Javed MD?? Tests Performed Below is a partial list of the tests performed during your hospitalization. You may have had other tests and procedures not included in this list. Please discuss all test results with your provider. CBC Type and Screen CBC?? Type and Screen?? Primary Care Provider Gibson Rojas MD? Advance Directive Health Care Proxy on File No Discharge Vitals Temperature: 98.2 DegF Height: 178 cm Pulse Rate: 84 bpm Weight: 75.8 kg Respiratory Rate: 16 br/min Body Mass Index: 23.92 kg/m2 Systolic Blood Pressure: 107 mm Hg Body surface area: 1.94 Diastolic Blood Pressure: 63 mm Hg ?? Oxygen Saturation: 95 % ?? Studies Pending All studies ordered during this hospital stay have been completed unless listed below. Please discuss all pending results with your provider listed above in these instructions. ?? No incomplete studies found?? What to do next Instructions From Your Doctor ?? Orders?? You Need to Schedule the Following Appointments Follow Up with??Chandu Boswell Where: [address] [facility] [employer] [place] [address]- Business (1) Follow Up with??Gibson Rojas MD Where: [address] [place] [address]- Business (1) Discharge Medications GIBSON VILLAVICENCIO :1955 Visit Date:04/04/2024 Medications: Please continue your medications until treatment is completed or stopped by your provider. Medications not listed below should be discontinued. Discuss any questions related to medications with your provider. What How Much When Instructions Next Dose New sacubitril-valsartan (Entresto 24 mg-26 mg oral tablet) 1 tab(s) Oral Twice a day Pickup at [facility]/pharmacy #2024 Tonight Unchanged Aspirin (aspirin 81 mg oral enteric coated tablet) 1 tab(s) Oral Daily Duration: 30 Days Resume Unchanged Atorvastatin (atorvastatin 40 mg oral tablet) 1 tab(s) Oral Daily Resume Unchanged Levothyroxine (levothyroxine 50 mcg (0.05 mg) oral capsule) 1 capsule Oral Daily Resume Unchanged Nitroglycerin (nitroglycerin 0.4 mg sublingual tablet) 1 tab(s) Sublingual Every 5 minutes as needed for Chest Pain Duration: 3 doses/times Resume Pharmacy Information [facility]/pharmacy #[id number]: [address], [place] [id number] [phone] Prescription Given During Visit sacubitril-valsartan (Entresto 24 mg-26 mg oral tablet) - 1 tablet, By Mouth, 2 times a day, # 60 tablet, 0 Refills, [facility]/pharmacy #2024, [address] [place] [phone]?? Laboratory Results Below is a partial list of the most recent Laboratory test results done prior to this discharge. You may have had other tests and procedures not included in this list. Please discuss all test resultswith your provider. CBC (04/04/2024) ???WBC - 3.5 k/mm3???RBC - 4.36 m/mm3???Hgb - 14.8 Gm/dL???Hct - 43.5 %???MCV - 99.8 femtoliters???MCH - 33.9 pg???MCHC - 34.0 Gm/dL???Platelet Count - 134 k/mm3???RDW-SD - 47.4 femtoliters???MPV - 10.7 femtoliters???Nucleated RBC (Automated) - 0.0 #/100 WBC'S???Abs. NRBC - 0.0 k/mm3 Type and Screen (04/04/2024) ???Blood Type - O Positive???Antibody Screen - Negative You will be contacted within 72 hours with your results. Allergies (NKA means No Known Allergies) NKA Problems No qualifying data available Education Materials Below is the list of Educational Leaflet Providered with your Discharge Instructions. [employer] Patient Education - Understanding Premature Ventricular Contractions (PVCs)?? [employer] Patient Education - Procedural Sedation?? [employer] Patient Education - Surgery Radial Cath Approach Discharge Instructions?? Web[employer] Ignite Patient Education - Discharge Instructions for Cardiac Catheterization?? Web[employer] Ignite Patient Education - Discharge Instructions for Cardiac Catheterization?? Valuables and Belongings I fully understand and agree that [facility] accepts no responsibility for all my personal property including clothing, toilet articles, radios, jewelry, dentures, hearing aids, rings, money, or any other property that is in my possession or is brought to me after admission. I understand certain valuables may be placed in a hospital safe for a short period of time. I understand that the hospital is not liable for loss or damage due to accident, fire, or other natural occurrence while said property is in the safe. I accept full responsibility for any personal property that I keep with me, and will not hold the hospital responsible in case of loss or disappearance. I acknowledge that i have been encouraged to send valuables and belongings home. ?? Date for Pt to Sign Valuables/Belongings: 04/04/24 07:43:00 ?? Valuables & Belongings ?? Clothes Electronic devices Jewelry Monetary Items Personal devices Miscellaneous Medications (Valuables) Valuables at Bedside Pants, Shirt, Shoes, Undergarments ? Valuables Sent Home ? Valuables Sent to Security ? Valuables Sent to Locker ? Other Discharge Information ? Pulmonary Rehab Status?? Pulmonary Rehab Discharge Status?? Respiratory Rate: 16 br/min ? Common Emergency Awareness Tips IS IT A STROKE? Act FAST and Check for these signs: FACE Does the face look uneven? ARM Does one arm drift down? SPEECH Does their speech sound strange? TIME Call at any sign of stroke ?? Heart Attack Signs Chest discomfort: Most heart attacks involve discomfort in the center of the chest and lasts more than a few minutes, or goes away and comes back. It can feel like uncomfortable pressure, squeezing, fullness or pain. Discomfort in upper body: Symptoms can include pain or discomfort in one or both arms, back, neck, jaw or stomach. Shortness of breath: With or without discomfort. Other signs: Breaking out in a cold sweat, nausea, or lightheaded. Remember, MINUTES DO MATTER. If you experience any of these heart attack warning signs, call to get immediate medical attention! ?? Smoking can increase your chances of developing chronic health problems and can cause harmful effects to other family members in your house. If you smoke, you are strongly encouraged to quit. Please call [facility] WeVideo Link at [phone] or [phone] ([phone]) or log in to [email or web address] for referrals to smoking cessation programs. ?? 269 Suicide & Crisis Lifeline is available 19/10 if you or someone you know needs to find a reason to keep living. By calling 827 you'll be connected to a skilled, trained counselor at a crisis center in your area. INPATIENT DISCHARGE INSTRUCTIONS SIGNATURE PAGE VILLAVICENCIO GIBSON Location:[facility] Registration Date and Time:04/04/2024 06:35 EST Primary Care Physician: Gibson Rojas MD, Attending Physician: Estrada Javed MD, I GIBSON VILLAVICENCIO, have received the above patient education materials/instructions and have verbalized understanding. If ambulance or transport services are being used I further acknowledge being given a choice of service. ?? If you need to contact me, please call me at this number: . Patient/Budget And Policy Analyst Name: Patient/Budget And Policy Analyst Signature: Relationship to Patient: Witness Name/Signature: Date: * Jacquelyn Benites RN: PERFORM, SIGN, VERIFY Event Display: Patient Education Handout Authored Date: [id number] * Jacquelyn Benites RN: PERFORM Event Display: Patient Education Leaflets Authored Date: [id number] Valsartan and Sacubitril ?? [id number] Valsartan and Sacubitril Brand Name(s): Entresto? IMPORTANT WARNING: Tell your doctor if you are or plan to become . Do not take the combination of valsartan and sacubitril if you are . If you become while you are taking valsartan andsacubitril, stop taking valsartan and sacubitril and call your doctor immediately. The combination of valsartan and sacubitril may cause or serious injury to the fetus when taken in the last 6 months of . WHY is this medicine prescribed? The combination of valsartan and sacubitril is usually used in combination with other medications to lower the risk of and hospitalization in adults with certain types of heart failure. The combination of valsartan and sacubitril is also used to treat certain types of heart failure in children 1 year of age and older. Valsartan is in a class of medications called angiotensin II receptor antagonists. It works by blocking the action of certain natural substances that tighten the blood vessels, allowing the blood to flow more smoothly and the heart to pump more efficiently. Sacubitril is in a class of medications called neprilysin inhibitors. It works to help control blood volume. HOW should this medicine be used? The combination of valsartan and sacubitril comes as a tablet and a sprinkle capsule (capsule that contains oral pellets, which are small beads of medication that can be sprinkled on food) to take bymouth. The tablets are usually taken twice a day with or without food. The sprinkle capsules are mixed with food and taken twice a day. To help you remember to take the combination of valsartan and sacubitril, take it at around the same times every day. Follow the directions on your prescription label carefully, and ask your doctor or pharmacist to explain any part you do not understand. Take valsartan and sacubitril exactly as directed. Do not take more or less of it or take it more often thanprescribed by your doctor. To take the sprinkle capsules mixed with food, open the capsule and sprinkle the entire contents onto 1 or 2 teaspoonfuls of soft foods, such as applesauce, yogurt, or pudding. Swallow the mixture right after you mix it without chewing. Do not swallow the sprinkle capsules whole; do not chew or crush the oral pellets. If you or your child cannot swallow the tablets, your pharmacist can prepare this medication as an oral suspension (liquid). Shake the bottle of suspension well before each dose. Your doctor may start you on a low dose of valsartan and sacubitril and gradually increase your dose. The combination of valsartan and sacubitril controls heart failure but does not cure it. Continue to take valsartan and sacubitril even if you feel well. Do not stop taking valsartan and sacubitril without talking to your doctor. Ask your pharmacist or doctor for a copy of the early learning teacher's information for the patient. Are there OTHER USES for this medicine? This medication may be prescribed for other uses; ask your doctor or pharmacist for more information. What SPECIAL PRECAUTIONS should I follow? Before taking valsartan and sacubitril, ??? tell your doctor and pharmacist if you are allergic (swelling of your face, lips, tongue, or throat, or difficulty breathing) to valsartan, other angiotensin receptor blockers (ARB) such as azilsartan (Edarbi, in Edarbyclor), candesartan (Atacand, in Atacand HCT), irbesartan (Avapro, in Avalide), losartan (Cozaar, in Hyzaar), olmesartan (Benicar, in [place], in Benicar HCT, in Tribenzor), telmisartan (Micardis, in Micardis HCT); angiotensin-converting enzyme (DERREK) inhibitors such as benazepril(Lotensin, in Lotrel), captopril, enalapril (Epaned, Vasotec, in Vaseretic), fosinopril, lisinopril(Qbrelis, Zestril, in Zestoretic), moexipril, perindopril (in Prestalia), quinapril, ramipril (Altace), or trandolapril (Mavik, in Tarka); sacubitril; any other medications; or any of the ingredientsin valsartan and sacubitril tablets and sprinkle capsules. Ask your pharmacist for a list of the ingredients. ??? Some medications should not be taken with valsartan and sacubitril. Other medications may cause dosing changes or extra monitoring when taken with valsartan and sacubitril. Make sure you have discussed any medications you are currently taking or plan to take before starting valsartan and sacubitril with your doctor and pharmacist. Before starting, stopping, or changing any medications while taking valsartan and sacubitril, please get the advice of your doctor or pharmacist. ??? The following nonprescription or herbal products may interact with valsartan and sacubutril: ibuprofen(Advil, Motrin), naproxen (Aleve). Be sure to let your doctor and pharmacist know that you are taking these medications before you start taking valsartan and sacubutril. Do not start any of these medications while taking valsartan and sacubutril without discussing with your healthcare provider. ???tell your doctor if you have or have ever had hereditary angioedema (inherited condition that causes episodes of swelling in the hands, feet, face, airway, or intestines); diabetes or kidney, or liver disease. ??? tell your doctor if you are . Do not breastfeed while you are taking valsartan and sacubutril. ??? you should know that valsartan and sacubutril may cause dizziness, lightheadedness, and fainting when you get up too quickly from a lying position. This is more common when you first start taking valsartan and sacubitril. To help avoid this problem, get out of bed slowly, resting your feet on the floor for a few minutes before standing up. ??? you should know that diarrhea, vomiting, not drinking enough fluids, and sweating a lot can cause a drop in blood pressure, which may cause lightheadedness and fainting. Tell your doctor if you have any of these problems or develop them during your treatment. What SPECIAL DIETARY instructions should I follow? Do not use salt substitutes containing potassium without talking to your doctor. If your doctor prescribes a low-salt or low-sodium diet, follow these directions carefully. What should I do IF I FORGET to take a dose? Take the missed dose as soon as you remember it. However, if it is almost time for the next dose, skip the missed dose and continue your regular dosing schedule. Do not take a double dose to make up for a missed one. What SIDE EFFECTS can this medicine cause? Valsartan and sacubitril may cause side effects. Tell your doctor if any of these symptoms are severe or do not go away: ??? cough ??? extreme tiredness Some side effects can be serious. If you experience any of these symptoms or those listed in the SPECIAL PRECAUTIONS section, call your doctor immediately: ??? rash ??? itching ??? swelling of the lips, tongue, face, or throat ??? difficulty breathing The combination of valsartan and sacubitril may cause other side effects. Call your doctor if you have any unusual problems while taking this medication. If you experience a serious side effect, you or your doctor may send a report to the Food and Drug Administration's (FDA) MedWatch Adverse Event Reporting program online (https://www.fda.gov/Safety/MedWatch) or by phone ( ). What should I know about STORAGE and DISPOSAL of this medication? Keep this medication in the container it came in, tightly closed, and out of reach of children. Store the tablets at room temperature and away from excess heat and moisture (not in the bathroom). Store the bottle of oral suspension at room temperature for up to 15 days; do not refrigerate it. It is important to keep all medication out of sight and reach of children as many containers (such as weekly pill minders and those for eye drops, creams, patches, and inhalers) are not child-resistant and young children can open them easily. To protect young children from poisoning, always lock safety caps and immediately place the medication in a safe location ??? one that is up and away and out of their sight and reach. https://www.[employer].org Unneeded medications should be disposed of in special ways to ensure that pets, children, and otherpeople cannot consume them. However, you should not flush this medication down the toilet. Instead,the best way to dispose of your medication is through a medicine take-back program. Talk to your pharmacist or contact your local garbage/recycling department to learn about take-back programs in your community. See the FDA's Safe Disposal of Medicines website (https://goo.gl/c4Rm4p) for more information if you do not have access to a take-back program. What should I do in case of OVERDOSE? In case of overdose, call the poison control helpline at . Information is also available online at https://www.poisonhelp.org/help. If the victim has collapsed, had a seizure, has trouble breathing, or can't be awakened, immediately call emergency services at 248. Symptoms of overdose may include the following: ??? dizziness ??? fainting What OTHER INFORMATION should I know? Keep all appointments with your doctor and the laboratory. Your doctor may order certain lab tests to check your body's response to valsartan and sacubitril. Do not let anyone else take your medication. Ask your pharmacist any questions you have about refilling your prescription. It is important for you to keep a written list of all of the prescription and nonprescription (frxy-evb-fmwtrwy) medicines you are taking, as well as any products such as vitamins, minerals, or otherdietary supplements. You should bring this list with you each time you visit a doctor or if you areadmitted to a hospital. It is also important information to carry with you in case of emergencies. This report on medications is for your information only, and is not considered individual patient advice. Because of the changing nature of drug information, please consult your physician or pharmacist about specific clinical use. The [place] [employer] represents that the information provided hereunder was formulated with a reasonable standard of care, and in conformity with professional standards in the field. The [place] [employer] makes no representations or warranties, express or implied, including, but not limited to, any implied warranty of merchantability and/or fitness for a particular purpose, with respect to such information and specifically disclaims all such warranties. Users are advised that decisions regarding drug therapy are complex medical decisions requiring the independent, informed decision of an appropriate health career advisor, and the information is provided for informational purposes only. The entire monograph for a drug should be reviewed for a thorough understanding of the drug's actions, uses and side effects. The [place] [employer] does not endorse or recommend the use of any drug.The information is not a substitute for medical care. AHFS?? Patient Medication Information???. ?? Copyright, 2023. The [place] [employer]??, [address], [address], [place], [place]. All Rights Reserved. Duplication for commercial use must be authorized by [facility]. Selected Revisions: October 16, 2023. AHFS?? Patient Medication Information???. ?? Copyright, 2024 ?? * Jacquelyn Benites RN: PERFORM Event Display: Patient Education Leaflets Authored Date: [id number] Understanding Premature Ventricular Contractions (PVCs) ?? 39029 Understanding Premature Ventricular Contractions (PVCs) Premature ventricular contractions (PVCs) are a type of abnormal heartbeat (arrhythmia). They are commonly found in people of all ages.? How PVCs happen Your heart has 4 chambers: 2 upper atria and 2 lower ventricles. Normally, a special group of pacemaker cells begins the signal to start your heartbeat. These cells are in the sinoatrial (SA) node in the right atrium. The signal quickly travels down your heart???s conducting system. It moves to the left and right ventricle. As it travels, the signal sets off nearby parts of your heart to contract. This allows your heart to squeeze in a coordinated way. During a PVC, the signal to start your heartbeat instead comes from one of the ventricles. This signal is premature, meaning it happens before the SA node has had a chance to fire. The signal spreadsthrough the rest of your heart, causing a heartbeat. If this happens very soon after the previous heartbeat, your heart will push out very little blood. This causes a feeling of a pause between beats. If it happens a little later, your heart pushes out an almost normal amount of blood. This leads to a feeling of an extra heartbeat. So the heart has a ???premature?? heartbeat in between normal heartbeats. ?? What causes PVCs? Most often, PVCs are harmless . But certain things can help set off a premature signal in the ventricles. These include: ??? Advancing age ??? Reduced blood flow to your heart (such as coronary artery disease) ??? Scarring after a heart attack ??? Electrolyte problems, such as low sodium or potassium levels ??? Caffeine ??? Alcohol ??? Nicotine ??? Illegal drugs, such as cocaine and methamphetamine ??? Increased adrenaline, such as with anxiety ??? Certain medicines, such as digoxin ??? Endocrine (hormone) problems, such as hyperthyroid (too much thyroid hormone) Many heart conditions raise the risk for PVCs. These include: ??? High blood pressure ??? Heart attack ??? Coronary heart disease ??? Dilated cardiomyopathy ??? Hypertrophic cardiomyopathy ??? Congenital heart disease ??? Heart failure They often happen in people without any heart disease. But PVCs are somewhat more common in people with some kind of heart disease.? What are the symptoms of PVCs? Most people with occasional PVCs don???t have symptoms. The more PVCs you have, the more likely youare to feel them. When symptoms do happen, they are usually minor. Symptoms may include: ??? An awareness of the heart beating ??? A fluttering or flip-flop feeling in your chest ??? Feeling of a skipped or extra heartbeat ??? Dizziness and near-fainting ??? A pulsing sensation in the neck PVCs may cause more severe symptoms if you have another heart problem, such as heart failure.? How are PVCs diagnosed? Your healthcare provider will ask about your health history and give you a physical exam. An electrocardiogram (ECG) is the main test for diagnosis. This test records the electrical activity of your heart. During an ECG, small pads (electrodes) are placed on your chest, arms, and legs. Wires connect the pads to a machine, which records your heart???s electrical signals. This test allows your provider to look at the signal of your heartbeat for a brief time. Any PVCs that occur during this time will show up on the ECG. In some cases, your healthcare provider might advise at home or portable ECG monitoring over a few days or even weeks. This can help to diagnose PVCs that don???t happen often. There are several types of heart monitors: ??? Holter monitor.??This monitor is a small box with wires connected to pads on your chest. You wear it for 1 to 2 days. It provides a constant recording of heart activity. After the test is done, your healthcare provider analyzes the recording. ??? Event monitors.??These monitors are also small boxes with wires connected to pads on your chest. They are generally worn for 3 to 4 weeks. But they can be used for several months. One kind is a memory loop recorder. This monitor records constantly.But it stores the recording only when you press a button. The other kind is a credit card-sized recorder. This monitor is turned on only during an episode. With both types, you send the recordings ofsymptoms to your healthcare provider over the phone. ??? Mobile cardiac outpatient telemetry. This type of event monitor is usually used for up to 30 days. It uses cell phone technology to send data in real time to a monitoring center where trained technicians can review it. Or it can contact a healthcare provider for a life-threatening problem. ??? Patch monitor. This is a small self-contained ad hesive patch that can record your heart rhythm for up to 2 weeks. ??? Insertable (or implantable) child monitor. This small device is implanted under the skin. It can be used to keep track of the heart rhythm for several years. ??? Commercially available wearable heart rhythm monitors . These include smartwatches or wristbands. They may be useful for finding abnormal heart rhythms. These may be the only tests your healthcare provider will need. You may need more testing if you have PVCs often, or many in a row. Your provider may look at other causes, including possible heart problems. These tests might include: ??? Echocardiography. This test uses ultrasound to evaluate your heart???s structure and function. ??? Cardiac stress testing. This test checks how your heart responds to exercise and to evaluate heart artery blood flow. ??? Cardiac CT or MRI. These imaging tests make detailed pictures of the heart. ??? Blood tests.??This is done to check electrolyte and thyroid levels. ?? Last Reviewed Date: 2022 ?? 2466-3183 [employer]. All rights reserved. This information is not intended as a substitute for professional medical care. Always follow your healthcare professional's instructions. ?? * Jacquelyn Benites RN: PERFORM Event Display: Patient Education Leaflets Authored Date: [id number] Procedural Sedation ?? 02899 Procedural Sedation Procedural sedation is medicine to ease discomfort, pain, and anxiety during a procedure. The medicine is often given through an IV (intravenous) line in your arm or hand. In some cases, the medicinemay be taken by mouth or inhaled. While you are under sedation, you will likely be awake. But you may not remember it afterward. Why procedural sedation is used Sedation is used for many types of procedures. The goal is to reduce pain, anxiety, and stressful memories of a procedure. It can help your healthcare provider treat you. For example, having a brokenbone fixed may be easier if you feel relaxed. This type of sedation is used only for short, basic procedures. It's not used for complex surgery. Some procedures that use this type of sedation include: ??? Dental surgery ??? Breast biopsy, to take a sample of breast tissue ??? Endoscopy, to look at gastrointestinal problems ??? Bronchoscopy, tocheck for lung problems ??? Bone or joint realignment, to fix a broken bone or dislocated joint ???Minor foot or skin surgery ??? Electrical cardioversion, to restore a normal heart rhythm ??? Lumbar puncture, to check for neurological disease ?? Risks of procedural sedation Risks and possible side effects include: ??? Headache ??? Nausea and vomiting ??? Bad memories of the procedure ??? Slowed breathing ??? Changes in heart rate and blood pressure (rare) ??? Inhalation of stomach contents into your lungs (rare) Side effects will likely go away shortly after the procedure. Your healthcare team will watch your heart rate and breathing during and after your sedation. This is to help prevent problems. Your own risks may vary. They can be based on your age and your overall health. They also depend onthe type of sedation you are given. Talk with your healthcare provider about the risks that apply most to you. ?? Getting ready for procedural sedation Talk with your provider about how to get ready for your procedure. Tell them about all the medicines you take. This includes htqq-mmf-hqrcfem medicines, such as ibuprofen. It also includes vitamins, herbs, and other supplements. You may need to stop taking some medicines before the procedure, such as blood thinners and aspirin. If you smoke, you should stop. This is to lessen the chance of a lungproblem. Talk with your provider if you need help to stop smoking. Tell your provider if you: ??? Have had any problems in the past with sedation or anesthesia ??? Have had any recent changes in your health, such as an infection or fever ??? Are or think you could be Also: ??? Follow any directions you are given for not eating or drinking before procedure. ??? Ask a trusted adult to take you home after the procedure. You can???t drive on the day you have sedation. ??? Ask a trusted adult to stay with you for a few hours while you recover. ??? Don't make any important decisions, such as financial or legal, on the day after you have sedation. ??? Follow all other instructions from your provider. ?? During your procedural sedation You may have your procedure in a hospital or a clinic. Sedation is done by a trained healthcare provider. In general, you can expect the following: ??? You will be given medicine through an IV line in your arm or hand. Or you may get a shot or take it by mouth. Or you may inhale it through a mask. ??? If you have medicine through an IV, you may feel the effects very quickly. You will start to feel relaxed and drowsy. ??? During the procedure, your heart rate, breathing, and blood pressure will be closely watched. Your breathing and blood pressure may decrease a little. But you will likely notneed help with your breathing. You may get a little extra oxygen. This is done through a mask or some soft plastic prongs under your nose. ??? You will likely be awake the whole time. If you do fall asleep, you should be easy to wake up, if needed. You should feel little or no pain. ??? When your procedure is over, the sedative medicine will be stopped. ?? After your procedural sedation You will start to feel more awake and aware. But you will likely be drowsy for a while afterward. You will be closely watched as you become more alert. You may have a faint memory of the procedure. Or you may not remember it at all. You should be able to go home within 1 to 2 hours after your procedure. Plan to have a trusted adult stay with you for a few hours. This person should make sure your condition is not getting worse. They should also watch for problems, and keep you safe. You may have side effects, such as nausea, fatigue, or unsteadiness for up to 24 hours. You may also feel lightheaded. Tell your healthcare provider if they continue. Don???t drive or operate dangerous machines during the next 24 hours. Also, don't make any important business or personal decisions. And don't drink any alcohol during the next 24 hours. Take extra care when walking and moving, You may be at a higher risk of falling. Follow any instructions you were given for eating and drinking. Be sure to follow all after-care directions. ?? When to call your healthcare provider Have someone call your healthcare provider right away if any of the following occur: ??? Drowsinessthat gets worse ??? Weakness or dizziness that gets worse ??? Repeated vomiting ??? Your speech is slurred, and others cannot understand you ??? Severe or ongoing pain from the procedure, not relieved by the pain medicine (if prescribed) ??? Fever of 100.4?? F (38??C) or higher, or as advised by your healthcare provider ??? New rash ?? Call 911 Have someone call 911 if any of the following occur: ??? Trouble breathing ??? Trouble swallowing ??? Chest pain ??? Loss of consciousness or you can't be awakened ?? Last Reviewed Date: 2021 ?? 1330-4965 [employer]. All rights reserved. This information is not intended as a substitute for professional medical care. Always follow your healthcare professional's instructions. ?? EKG study * Event Display: ECG 12-Lead Authored Date: Please click on pdf link to open report * Event Display: ECG 12-Lead Authored Date: Ventricular Rate: 70 BPM Atrial Rate: 70 BPM P-R Interval: 130 ms QRS Duration: 84 ms Q-T Interval: 432 ms QTC Calculation(Bazett): 466 ms P Dudley: 32 degrees R Dudley: 18 degrees T Dudley: 67 degrees Normal sinus rhythm Normal ECG When compared with ECG of 04-Apr-2024 06:58, No significant change Confirmed by Erick Monae ([id number]) on 04/04/2024 11:59:42 AM [place]: Erick Monae Patient Care team information Care Team Personnel Name: Jacquelyn Benites RN Position: Gigi BROWN RN Member Role: Primary Care Nurse Name: Caro Mcgarry RN Position: Gigi BROWN RN Member Role: Primary Care Nurse Name: Gibson Rojas MD Position: Reference Physician Member Role: PCP Address: [address] [place] [address] Telecom: Care Team Related Persons Name: ALFIE KISER Insurance Providers Guarantor name: [employer] Health Plan Information #: 1 Payer: [employer] Member Number: [id number] Policy Number: NA Group Number: [id number] Health Plan Information #: 2 Payer: [employer] Member Number: [id number] Policy Number: NA Group Number: [id number]
--- OUTSIDE RECORDS SUMMARY | 2024-04-18 10:23 | XMS_ITS ---
Author Organization [facility] Address [address] [place] [address] Care Team Providers Care Pit Laborer Name Role Phone Crystal SCHULTZ, Don Arreaga Primary Care Provider Unav ailable Bran Quigley Unavailable [phone] Allergies Allergen (clinical drug ingredient) Drug/Non Drug [...] W/U Status Risk Notes Problem Atherosclerosis of swinom[place] arteries of the extremities ([id number]) Atherosclerosis of sw[place]om[place] artery of both lower extremities, with unspecified presence of clinical manifestation (I70.203) Active confirmed Vital Signs Height 5 ft 8 in in 12/22/2022 Weight 165 lbs 12/22/2022 BMI 25.09 kg/m2 12/22/2022 Encounters Encounter Location Date Provider Diagnosis [facility] [address] [place] [address] 12/22/2022 Bran Soraida Pain in right foot M79.671 ; Pain in right ankle and joints of right foot M25.571 ; Bursitis of intermetatarsal bursa of right foot M77.51 ; Metatarsalgia, right foot M77.41 and Atherosclerosis of sw[place]om[place] artery of both lower extremities, with unspecified [...] foot (ICD-10 - M77.41) 12/22/2022 Atherosclerosis of swinomish artery of both lower extremities, with unspecified presence of clinical manifestation (ICD-10 - I70.203) Plan Of Treatment Pending Test Test Name Order Date X ray : Foot, right 3V 12/22/2022 Next Appt Details Follow Up: prn, Reason: Progress Notes * Gibson OG MDOB: [birth year] (67 yo M)Acc No.[id number]:12/22/2022 Progress Notes Patient:?Gibson Og Provider:?Bran Quigley DPM :1955???Age:67 Y???Sex:Male Fili e:12/22/2022 Address:[address] [place], [place] [id number] Pcp:Don Rojas MD Subjective: * Chief Complaints: [...] - M77.41, Chronic problem, Worse (4)?5.?Atherosclerosis of swinomish artery of both lower extremities, with unspecified presence of clinical manifestation - I70.203? Plan: * Treatment: * Procedure Codes:?74143 X-RAY EXAM OF RIGHT FOOT 3V, Modifiers: [...] Quigley DPM Date:?2022 Generated for Mary hou/Mannie/Сергей on:?04/18/2024 10:23 AM EST History and Physical Notes * [...]
--- OUTSIDE RECORDS SUMMARY | 2024-04-18 10:23 | XMS_ITS ---
Author Organization [facility] Address [address] [place] [address] Care Team Providers Care Hi Teacher Name Role Phone Crystal SCHULTZ, Don Arreaga Primary Care Provider Unav ailable Bran Quigley Unavailable [phone] ivett/milena Encounters Encounter Location Date Provider Diagnosis [facility] [address] [place] [address] 12/18/2022 Bran Quigley Plan Of Treatment No Information Progress Notes * Gibson OG MDOB: [birth year] (68 yo M)Acc No.[id number]:12/18/2022 Progress Notes Patient:?Gibson OG Provider:?Bran Quigley DPM :1955???Age:67 Y???Sex:Male Fili e:12/18/2022 Address:[address] [place] [id number] Pcp:Don Rojas MD Subjective: * Chief Complaints: [...] Quigley DPM Date:?2022 Generated for Mary hou/Mannie/Júnioritting on:?04/18/2024 10:23 AM EST
--- OUTSIDE RECORDS SUMMARY | 2024-04-18 10:23 | XMS_ITS ---
Author Organization [facility] Address [address] [place] [address] Care Team Providers Care Skinning Machine Feeder Name Role Phone Don Rojas MD Primary Care Provider Unav ailable Bran Quigley Unavailable [phone] Allergies Allergen (clinical drug ingredient) Drug/Non Drug [...] 01/22/2023 Encounters Encounter Location Date Provider Diagnosis [facility] [address] [place] [address] 01/22/2023 Bran Quigley Plan Of Treatment No Information Progress Notes * Gibson OG MDOB: [birth year] (68 yo M)Acc No.[id number]:01/22/2023 Progress Notes Patient:?Gibson OG Provider:?Bran Quigley DPM :1955???Age:67 Y???Sex:Male Fili e:01/22/2023 Address:[address] [place], [place] [id number] Pcp:Don Rojas MD Subjective: * Chief Complaints: * ??? * ROS:?General/Constitutional:?Nausea?denies.?Vomiting?denies.?Hunger Thirst?denies.?Loss appetite?denies.?Chills?denies.?Fatigue?denies.?Fever?denies.?Night Sweats?denies.?Unexplained weight loss?denies.?Unexplained weight gain?denies.?HEENTM:?Dentures?denies.?Dizziness?denies.?Glasses/contacts?admits.?Retinopathy?de nies.?Blurred/double vision?denies.?TMJ?denies.?Discharge/drainage?denies.?Implants?denies.?Sore throat?denies.?Dental implants?denies.?Hard of hearing ?denies.?Difficulty chewing/swallowing/speaking?denies.?Nose bleeds?denies.?Sore mouth?denies.?Respiratory:?On Oxygen?denies.?Pneumonia/pleurisy?denies.?Bronchitis?denies.?Emphysema?denies.?C oughing?denies.?Cough blood?denies.?Shortness of breath?denies.?Wheezing?denies.?Cardiovascular:?Pacemaker?denies.?MVP?denies.?WPW?denies.?CHF?denies.?Heart attack?denies.?Septal defect?denies.?Rapid beat?denies.?Chest pain ?denies.?Atrial Fib.?denies.?Murmur/Palpitations?denies.?Gastrointestinal:?Hemorrhoids?denies.?Stomach/Abdominal pain?denies.?Dark blood stool?denies.?Irritable bowel ?denies.?Constipation?denies.?Diarrhea?denies.?Hematology:?Swelling?denies.?Clots?denies.?Varicose Veins?denies.?Bruising?denies.?Bleeding problem?denies.?Genitourinary:?Blood urine?denies.?Frequent/Painfu/urination/bladder control?denies.?Kidney stones?admits.?Infection (UTI)?denies.?Nephropathy?denies.?sex trans dis (STD)?denies.?Prostate?denies.?Musculoskeletal:?Hammertoes?denies.?Bunions?denies.?Back Pain?denies.?Muscle Cramps/ Resting?denies.?Muscle cramps / walking?denies.?Generalized aches and pains?admits.?Weakness?denies.?Integ.:?Saiin?denies.?Scars?denies.?Corns/calluses?denies.?Ingrown nails?denies.?Painful nails?denies.?Open Sores?denies.?Rashes?denies.?Neurologic:?Difficulty sleeping?denies.?Brain disorder?denies.?Numbness?denies.?Balance trouble?denies.?Confusion?denies.?Fainting/blackouts?denies.?Tingling?denies.?Tr emors?denies.? [...]
--- OUTSIDE RECORDS SUMMARY | 2024-04-18 10:23 | XMS_ITS | Encounter Summary ---
Author Organization [facility] Address [address] [place] [address] Care Team Providers Care Warp Knitter Name Role Phone Don Rojas MD Primary Care Provider [phone] Reason for Referral * Consultation (Routine) - Authorized Specialty Diagnoses / Procedures Referred By Contac t Referred To Contact Hematology and Oncology Diagnoses Hodgkin lymphoma, unspecified Hodgkin lymphoma type, unspecified body region (CMS/HCC) Don Rojas MD [address] [place] [address] Black Coello MD [address] [place] [address] ATTN: HEMATOLOGY/[place] [address] Referral ID Status Reason Start Date Expiration Date Visits Requested Visits Authorized [id number] Authorized Specialty Services Required 02/04/2024 02/03/2025 6 6 Reason for Visit * Reason Onset Date Comments Referral 03/30/2024 Referral for [facility] [place] Encounter Details Date Type Department Care Team (Late st Contact Info) Description 03/30/2024 Telephone Adult Medicine [address] [address] Don Rojas MD [address] [place] [address] Referral (Referral for [facility] [place]) Social History Tobacco Use Types Packs/Day Years [...] on file documented as of this encounter Progress Notes * Dawn Morgan MA - 03/31/2024 1:07 PM EST I called and spoke with Gibson and let him know that the referral was placed. Gibson said that he didn't understand why it was placed since he has been with this doctor for 12 years. Patient also sts that he fell on 03/25/24 denies any loc before or after fall. He went to where they did x-rays where they told him there was no visible fractures however Gibson says the pain has gotten extremely worse. He say he fears coughing,sneezing and it hurts to take a deep breath. Gibson says his 6/10 pain during any of those motions. I advised him to go back to the ER Gibson stated he wasn't that happy with his care there. I scheduled Gibson for Wednesday with Dr Rojas but strongly advised him to to back to the ER even if it'sa different one. Gibson refused this advice several times. I told if he gets any worse to please beseen. Gibson agreed to that and thanked me for scheduling him and listening to him * Don Rojas MD - 03/31/2024 12:00 PM EST Please call patient referral placed. * Dawn Morgan MA - 03/31/2024 11:07 AM EST Please review pended order patient had an appointment with Dr. Coello on 01/31/24. Thank you * Daily Coelho - 03/30/2024 4:08 PM EST Please create an order for the referral Caller: n/a Office: [facility] [place]ology Insurance: [facility] ID: [id number] Provider: Dr Coello DOS: 02/04/24 Visits: 6 Dx code: C81.90 IMPORTANT Pls copy and paste this into the order. Otherwise, it will not be processed as an ins referral documented in this encounter Plan of Treatment Upcoming Encounters Date Type Department Care Team (Late st Contact Info) Description 05/11/2024 9:30 AM EST Office Visit Adult [address] [address] Don Rojas MD [address] [place] [phone] Scheduled Referrals Name Type Priority Associated Diagnoses Order Schedule Ambulatory referral to Hematology / Oncology Outpatient Referral Routine Hodgkin lymphoma, unspecified Hodgkin lymphoma type, unspecified body region (CMS/HCC) 1 Occurrences starting 03/31/2024 until 03/31/2025 documented as of this encounter Visit Diagnoses Diagnosis Hodgkin lymphoma, unspecified Hodgkin lymphoma type, unspecified body region (CMS/HCC)- Primary documented in this encounter Care Teams Warp Knitter Relationship Specialty Start Date End Date Don Rojas MD [address] [place] [id number] PCP - General 07/21/1997 documented as of this encounter
--- OUTSIDE RECORDS SUMMARY | 2024-04-18 10:23 | XMS_ITS | Encounter Summary ---
Author Organization [facility] Address [address] [place] [address] Care Team Providers Care Grinding Wheel Facer Name Role Phone Bradly Rojas MD Primary Care Provider [phone] Reason for Visit * Reason Comments Hospital Follow-up Hospital follow up p ost fall Encounter Details Date Type Department Care Team (Late st Contact Info) Description 04/03/2024 10:15 AM EST Office Visit Adult Medicine [facility] [address] [place] [address] Bradly Rojas MD [address] [place] [address] Pleuritic chest pain (Primary Dx); Contusion of chest wall, unspecified laterality, subsequent encounter; Accidental fall, subsequent encounter; Hodgkin lymphoma, unspecified Hodgkin lymphoma type, unspecified body region (CMS/HCC); Traumatic injury of head, subsequent encounter; Coronary artery disease involving [place] coronary artery of [place] heart without angina pectoris Social History Tobacco Use Types Packs/Day Years [...] on file documented as of this encounter Last Filed Vital Signs Vital Sign Reading Time Taken Comments Blood Pressure 114/74 04/03/2024 10:20 AM EST Pulse 64 04/03/2024 10:20 AM EST Temperature 36.1 ??C (96.9 ??F) 04/03/2024 10:[address] Respiratory Rate 20 04/03/2024 10:20 AM EST Oxygen Saturation - - Inhaled Oxygen Concentration - - Weight 72.6 kg (160 lb) 04/03/2024 10:20 AM EST Height 177.8 cm (5' 10 ) 04/03/2024 10:20 AM EST Body Mass Index 22.96 04/03/2024 10:20 AM EST documented in this encounter Progress Notes * Bradly Rojas MD - 04/03/2024 10:15 AM ESTAddended by: BRADLY ROJAS on: 04/16/2024 05:36 PM Modules accepted: Level of Service * Bradly Rojas MD - 04/03/2024 10:15 AM EST CHIEF COMPLAINT: Hospital Follow-up (Hospital follow up post fall) IDENTIFIER: Gibson Og is a 68 y.o. old male. HPI: Patient presents complaining about ongoing pleuritic chest pain/right rib cage pain after a fall. Patient reported the fall was purely accidental, slipped on the ice going up a stair. Fell is quiteheavy, landing the right chest/sides/back onto the floor, with heavy hit on back of head on the ground. No loss of consciousness. With persistent chest pain, patient eventually presented to the ER a few days after the initial fall. Although patient was told everything is fine , he still has concern wanted me to check him out. No resting chest wall pain, patient however developed some cough lately that worsened the pain. No sputum production. There is no fatigue, no constitutional symptoms. Patient follows with Dr. Lechuga for cardiology, reportedly there was some abnormalities with most recent cardiac evaluation, patient described what appears to be cardiac cath through the radial artery approach, tomorrow. This added to patient's anxiety. No active chest pain/chest pressure. No swelling. I obtained and reviewed patient's ER record from [facility], with evaluation date of March 29, 2024. ER documentation confirmed patient's report in terms of accidental fall. Patient was hemodynamically stable examination was unremarkable patient had a CT of the brain that showed no acute findings. Chest CT showed no fracture or dislocation. The final diagnoses are chest wall pain chest wall contusion. ROS: GENERAL: Negative for malaise, significant weight loss and fever RESPIRATORY: No cough, wheezing or shortness of breath, See HPI CARDIOVASCULAR: Negative for chest pain, leg swelling and palpitations, See HPI GI: Negative for abdominal discomfort, changes in bowel habits, blood in stool or black stools ENDOCRINE: Negative for cold or heat intolerance, polyuria, polydipsia and goiter NEURO: No persistent headache, fainting, seizures, strokes, TIAs, weakness, numbness or tingling PAST MEDICAL HISTORY: Patient Active Problem List Diagnosis Date Noted Hyperglycemia 02/08/2023 COVID-19 01/10/2023 Kidney stone 08/05/2022 Subclinical hypothyroidism 03/18/2016 Hypertriglyceridemia 11/30/2015 Coronary artery disease involving [place] coronary artery without angina pectoris 02/18/2015 Hodgkin's lymphoma (CMS/HCC) 10/24/2012 Non-specific colitis 01/16/2009 Gout, unspecified 12/28/2005 SOCIAL HISTORY: Social History Tobacco Use Smoking status: Never Smokeless tobacco: Never Substance Use Topics Alcohol use: No FAMILY HISTORY: Family Status Relation Name Status Mother Alive Father Sister (Not Specified) PGF (Not Specified) No partnership data on file Family History Problem Relation Name Age of Onset Other cancer Mother skin Stroke Father carotid stenting Diabetes Father Thyroid disease Sister 5 sisters, 2 brothers, all have thyroid disease Diabetes Paternal Grandfather started age 55 ACTIVE MEDICATIONS: Outpatient Medications Marked as Taking for the 04/03/24 encounter (Office Visit) with Bradly Rojas MD Medication Sig Dispense Refill aspirin 81 mg EC tablet Take 1 tablet (81 mg total) by mouth 1 (one) time each day. atorvastatin (LIPITOR) 40 mg tablet Take 0.5 Tablets by mouth. Prescribed by Dr. Henderson at [facility] levothyroxine sodium (TIROSINT) 50 mcg capsule Take 50 mcg by mouth daily. nitroglycerin (NITROSTAT) 0.[address] 1 Tablet under the tongue every 5 minutes as needed. Prescribed by Dr. Henderson at [facility] ALLERGIES: Patient has no known allergies. PHYSICAL EXAM: Blood pressure 114/74, pulse 64, temperature 36.1 ??C (96.9 ??F), temperature source Temporal, resp. rate 20, height 1.778 m (70 ), weight 72.6 kg (160 lb). Body mass index is 22.96 kg/m??. BMI is 18.5 to 24.9 (within the normal range) and will be followed APPEARANCE: Alert and in no acute distress HEART: Normal S1-S2 LUNG: clear to auscultation bilaterally ABDOMEN: Bowel sounds normoactive, no bruits and soft, non-tender, without organomegaly or palpablemasses EXTREMITIES: Extremities warm and well perfused without clubbing, cyanosis, or edema NEURO: Awake, alert and oriented x 3, reflexes symmetrical, and gait steady SKIN: Skin color, texture, turgor normal. No rashes or lesions. Chest wall with some tenderness in the right lower flank area of rib cage, breathing sounds equal bilaterally This lung evaluation I do not hear the patient cough once LABS: No results found for: WBC , HGB , HCT , MCV , PLT Wt Readings from Last 5 Encounters: 04/03/24 72.6 kg (160 lb) 12/30/23 71.9 kg (158 lb 9.6 oz) 11/03/23 72.6 kg (160 lb) 09/08/23 77.3 kg (170 lb 6.4 oz) 07/07/23 77.1 kg (170 lb) No results found for: TSH IMPRESSION: 1. Pleuritic chest pain 2. Contusion of chest wall, unspecified laterality, subsequent encounter 3. Accidental fall, subsequent encounter 4. Hodgkin lymphoma, unspecified Hodgkin lymphoma type, unspecified body region (CMS/HCC) 5. Traumatic injury of head, subsequent encounter 6. Coronary artery disease involving [place] coronary artery of [place] heart without angina pectoris PLAN: Patient presents complaining about ongoing pleuritic chest pain/right rib cage pain after a fall. Patient reported the fall was purely accidental, slipped on the ice going up a stair. Fell is quiteheavy, landing the right chest/sides/back onto the floor, with heavy hit on back of head on the ground. No loss of consciousness. With persistent chest pain, patient eventually presented to the ER a few days after the initial fall. Although patient was told everything is fine , he still has concern wanted me to check him out. No resting chest wall pain, patient however developed some cough lately that worsened the pain. No sputum production. There is no fatigue, no constitutional symptoms. Patient follows with Dr. Lechuga for cardiology, reportedly there was some abnormalities with most recent cardiac evaluation, patient described what appears to be cardiac cath through the radial artery approach, tomorrow. This added to patient's anxiety. No active chest pain/chest pressure. No swelling. I obtained and reviewed patient's ER record from [facility], with evaluation date of March 29, 2024. ER documentation confirmed patient's report in terms of accidental fall. Patient was hemodynamically stable examination was unremarkable patient had a CT of the brain that showed no acute findings. Chest CT showed no fracture or dislocation. The final diagnoses are chest wall pain chest wall contusion. 1 accidental fall. We discussed the following. We discussed fall precaution injury prevention. A pleuritic pain, chest wall contusion, it may take time to recover, B cough, throughout this prolonged evaluation I do not hear the patient cough once. For completeness I will order repeat x-ray which is again unremarkable. O2 saturation 100% C head trauma, no loss of consciousness, CT scan unremarkable, 5 days into the injury, no further symptoms examination unremarkable 2 CAD, patient will get cardiac catheter tomorrow We discussed the concept of secondary prevention. Blood pressure is good without any medication, weight very well-maintained. Lipid profile satisfactory on statin 3 patient is stable, he follows with [facility] oncologist annually, I also encouraged the patient to follow with local hematology oncologist. Recent TSH therapeutic. Orders Placed This Encounter Procedures XR Chest 2 Views ADDITIONAL ORDERS: None Bradly Rojas MD on 04/03/2024 at 2:03 PM EST documented in this encounter Plan of Treatment Upcoming Encounters Date Type Department Care Team (Late st Contact Info) Description 05/11/2024 9:30 AM EST Office Visit Adult Medicine [address] [address] Bradly Rojas MD [address] [place] [address] documented as of this encounter Results * XR Chest 2 [...] Signed Date: 04/03/2024 11:25 ET Workstation ID: [id number] Transcribed By: Self Edit Transcribed Date: 04/03/2024 [...] Signed Date: 04/03/2024 11:25 ET Workstation ID: [id number] Transcribed By: Self Edit Transcribed Date: 04/03/2024 11:24 ET Bradly Rojas MD IMG XR PROCEDURES documented in this encounter Visit Diagnoses Diagnosis Pleuritic chest pain- Primary Painful respiration Contusion of chest wall, unspecified laterality, subsequent encounter Accidental fall, subsequent encounter Hodgkin lymphoma, unspecified Hodgkin lymphoma type, unspecified body region (CMS/HCC) Traumatic injury of head, subsequent encounter Coronary artery disease involving [place] coronary artery of [place] heart without angina pectoris Pleuritic chest pain Painful respiration Contusion of chest wall, unspecified laterality, subsequent encounter Accidental fall, subsequent encounter documented in this encounter Care Teams Grinding Wheel Facer Relationship Specialty Start Date End Date Bradly Rojas MD [address] [place] [address] PCP - General 07/21/1997 documented as of this encounter
--- OUTSIDE RECORDS SUMMARY | 2024-04-18 10:23 | XMS_ITS | Patient Health Record ---
Author Organization [facility] Address [address] [facility] [place] [address] Care Team Providers Care Horizontal Boring Mill Operator Name Role Phone Crystal SCHULTZ, Don Arreaga Primary Care Provider Unav ailable Bran Quigley Unavailable [phone] Allergies Allergen (clinical drug ingredient) Drug/Non Drug [...] W/U Status Risk Notes Problem Atherosclerosis of [place] arteries of the extremities ([id number]) Atherosclerosis of [place] artery of both lower extremities, with unspecified presence of clinical manifestation (I70.203) Active confirmed Plan Of Treatment Pending Test Test Name Order Date X ray : Foot, right 3V 12/22/2022 Insurance Providers Payer Name Payer Address Payer Phone Subscriber Number Group Number Insured Name Patient Relationship to Insured Coverage Start Date Coverage End Date [employer] Preferred [address] [place] [phone] [id number] Gibson Og Self - patient is the insured Medical (General) History Medical History History ICD Code Broken bones covid-19 Heart disease Cancer Transfusions Rotator cuff concerns Surgical History Surgery Date(Month/Year) Stent 02/2013
== END 2024-04-18 10:34 | disposition home or self-care (01) ==
PROVIDERS: PCP Internal Medicine; Visit Provider Nurse Practitioner Family
DX: I49.3 Ventricular premature depolarization (principal); Z98.890 Other specified postprocedural states; I25.10 Atherosclerotic heart disease of native coronary artery without angina pectoris; I95.1 Orthostatic hypotension; I42.9 Cardiomyopathy, unspecified
CPT/HCPCS: 99214; G2211

== ENCOUNTER → 2024-04-18 09:29 | Outpatient (BNVA) | payer MEDICARE, SELFPAY | PROVIDERS: PCP Internal Medicine; Visit Provider Nurse Practitioner Family | DX: I49.3 Ventricular premature depolarization (principal); I25.10 Atherosclerotic heart disease of native coronary artery without angina pectoris; I95.1 Orthostatic hypotension; I42.9 Cardiomyopathy, unspecified; E78.5 Hyperlipidemia, unspecified; Z98.890 Other specified postprocedural states | CPT/HCPCS: 99212 ==

== ENCOUNTER → 2024-05-09 13:04 | Outpatient (REF) | payer MEDICARE, SELFPAY | LOC: HO.CARD 13:04 | PROVIDERS: PCP Internal Medicine; Visit Provider Nurse Practitioner Family | DX: I49.3 Ventricular premature depolarization (principal) | CPT/HCPCS: 93242 ==

== ENCOUNTER → 2024-05-09 13:07 | Outpatient (BNV) | payer MEDICARE, SELFPAY | PROVIDERS: PCP Internal Medicine; Visit Provider Internal Medicine | DX: I49.3 Ventricular premature depolarization (principal) | CPT/HCPCS: 93244 ==

== ENCOUNTER 2024-06-13 15:12 | Outpatient (AMB) | payer MEDICARE, SELFPAY ==
[2024-06-13 15:15] VITALS: BP 120/80; PULSE 58; BMI 23.1
--- NOTE | 2024-06-13 15:15 | A.OFFVIS_ITS ---
Vital Signs 06/13/24 15:15 Height 5 ft 10 in Weight 160 lb 14.999 oz BMI 23.1 BP 120/80 Blood Pressure Location Lt brachial Position Sitting Pulse 58 Intake Visit Reasons: follow up s/p holter Intake Note: Follow-up after holter feeling ok Electric Meter Setter Required: No Allergies No Known Allergies Allergy (Verified 04/18/24 09:48) Medication List - Last Reconciled 06/13/24 by Chandu Boswell MD aspirin 81 mg PO DAILY atorvastatin 20 mg PO DAILY ketorolac 10 mg PO Q6H PRN methocarbamol 750 mg PO Q8H PRN nitroglycerin 0.4 mg sublingual .prn HPI Comments Details: Gibson comes for follow-up. Has overall symptoms of fatigue. No worsening shortness of breath, orthopnea, PND. Denies any lightheadedness, syncope. He denies any exertional chest pain. His recent Holter monitor showed reduction in PVC burden to about 23% but still frequently present. He can not tolerate other medications due to his orthostatic intolerance. He has cardiac catheterization shows nonobstructive disease with patent LAD stent. He comes for further evaluation. He has been seen by electrophysiology and offered and ablative approach to treat his PVCs and he has certain questions about it. [facility] Medical History Rotator cuff arthropathy of right shoulder Rotator cuff arthropathy Kidney stone Orthostatic hypotension dysautonomic syndrome CAD (coronary artery disease) History of Hodgkin's lymphoma Surgical History Stented coronary artery H/O stem cell transplant Family History Father Diabetes Brother Hx of thyroid disease Brother Hx of thyroid disease Sister Hx of thyroid disease Sister Hx of thyroid disease Sister Hx of thyroid disease Sister Hx of thyroid disease Sister Hx of thyroid disease Social History Household Members: Spouse Housing: House Are you a primary health and social care teacher to a significant other at home: No Do you presently have visiting nurse or other home services: No Alcohol intake: former Patient Tobacco Use Status: Never used Tobacco service: No Current occupational status: employed Review of Systems Const Denies chills, Denies fatigue, Denies fever(s), Denies frequent falls, Denies weakness, Denies weight gain and Denies weight loss ENT Denies dizziness Card Denies chest pain, Denies leg edema, Denies lightheadedness, Denies palpitations, Denies dyspnea, Denies dyspnea on exertion, Denies orthopnea and Denies other (loss of consciousness) Resp Denies cough, Denies dyspnea and Denies dyspnea on exertion GI Denies hematochezia and Denies change in stool character Musc Denies abnormal gait, Denies muscle weakness, Denies numbness, Denies radiating pain into limb and Denies tingling Neuro Denies abnormal gait, Denies dizziness, Denies frequent falls, Denies numbness, Denies tingling and Denies weakness Endo Denies fatigue and Denies palpitations Physical Exam Vital Signs: Last Vital Signs Pulse 58 06/13/24 15:15 BP 120/80 06/13/24 15:15 BMI result Body Mass Index 23.1 Const General: cooperative, healthy appearing, comfortable and no acute distress Orientation/consciousness: patient oriented x3 Neck Neck: Yes normal visual inspection and Yes no JVD Resp Effort & Inspection: normal respiratory effort Auscultation: clear to auscultation bilaterally, no rales, no rhonchi and no wheezes Cardio Jugular venous distension: no JVD Rate: regular rate Rhythm: abnormal rhythm with ectopic beats Heart sounds: S1 normal heart sound present, S2 normal heart sound present, no murmurs and no rubs Neuro General: patient oriented x3 Extrem General: Yes normal to inspection and No no pedal edema Psych Appearance: grossly normal Mental Status: mental status grossly normal Speech and movement: Normal speech and movement present Assessment & Plan Assessment & Plan (1) Cardiomyopathy: Code(s): I42.9 - Cardiomyopathy, unspecified Category: Medical Plan: 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 Intolerance 20 medications due to orthostatic intolerance. Would benefit from PVC ablation as they appear to be unifocal. Discussed with him the process of ablation and pathophysiology associated with frequent PVCs causing cardiomyopathy. If he has adequate reduction burden of PVCs post ablation expected LV ejection fraction to improve. Small likelihood that this cardiomyopathy could be chemotherapy-induced and would likely not improve with the ablation and suppression of PVC. Will follow after adequate suppression of PVCs. Signs and symptoms of heart failure were discussed. Patient was currently not having any obvious signs of congestive heart failure. 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 Will pursue ablation as above. Has seen by [facility] advised to pursue called to them for further treatment. (3) CAD (coronary artery disease): Code(s): I25.10 - Atherosclerotic heart disease of [place] coronary artery without angina pectoris Category: Medical Plan: CAD status post stenting of LAD with recent cardiac catheter patient showing patent stent. Continue low-dose aspirin therapy. Continue high-intensity statin therapy with target goal LDL less than 70 mg/dL. (4) Orthostatic hypotension dysautonomic syndrome: Code(s): I95.1 - Orthostatic hypotension Category: Medical Plan: Dysautonomia syndrome with well controlled blood pressure at this point time. He still has some orthostatic intolerance but can control his symptoms very well. Advised to maintain adequate hydration. Orthostatic precautions were discussed. Follow up in the clinic in 3 months time, sooner p.r.n.. Thank you for allowing me to partake in his care Coding Level of Care Code Est Pt Level 4 (51725) Complex EM visit Add On G2211 Diagnoses Cardiomyopathy I42.9 PVCs (premature ventricular contractions) I49.3 CAD (coronary artery disease) I25.10 Orthostatic hypotension dysautonomic syndrome I95.1
--- OUTSIDE RECORDS SUMMARY | 2024-06-13 18:06 | XMS_ITS ---
Author Organization [facility] Address [address] [place] [address] Care Team Providers Care Creative Services Producer Name Role Phone Crystal SCHULTZ, Don Arreaga Primary Care Provider Unav ailable Bran Quigley Unavailable [phone] ivett/milena Encounters Encounter Location Date Provider Diagnosis [facility] [address] [place] [address] 12/18/2022 Bran Quigley Plan Of Treatment No Information Progress Notes * Gibson OG MDOB: [birth year] (68 yo M)Acc No.[id number]:12/18/2022 Progress Notes Patient:?Gibson OG Provider:?Bran Quigley DPM :1955???Age:67 Y???Sex:Male Fili e:12/18/2022 Address:[address] [place] [id number] Pcp:Don Rojas MD Subjective: * Chief Complaints: [...] Quigley DPM Date:?2022 Generated for Mary hou/Mannie/Júnioritting on:?06/13/2024 06:06 PM EDT
--- OUTSIDE RECORDS SUMMARY | 2024-06-13 18:06 | XMS_ITS ---
Author Organization [facility] Address [address] [place] [address] Care Team Providers Care Waiter/Waitress Head Name Role Phone Don Rojas MD Primary Care Provider Unav ailable Bran Quigley Unavailable [phone] Allergies Allergen (clinical drug ingredient) Drug/Non Drug [...] 01/22/2023 Encounters Encounter Location Date Provider Diagnosis [facility] [address] [place] [address] 01/22/2023 Bran Quigley Plan Of Treatment No Information Progress Notes * Gibson OG MDOB: [birth year] (68 yo M)Acc No.[id number]:01/22/2023 Progress Notes Patient:?Gibson OG Provider:?Bran Quigley DPM :1955???Age:67 Y???Sex:Male Fili e:01/22/2023 Address:[address] [place], [place] [address] Pcp:Don Rojas MD Subjective: * Chief Complaints: [...] Quigley DPM Date:?2022 Generated for Mary hou/Mannie/Сергей on:?06/13/2024 06:06 PM EDT
--- OUTSIDE RECORDS SUMMARY | 2024-06-13 18:06 | XMS_ITS | Continuity of Care Document ---
Author Organization [facility] Address [address] [place] [id number]- Care Team Providers Care Gis Mapping Technician Name Role Phone Crystal SCHULTZ, Gibson Rodriges Primary Care Physician Encounter [facility] Date(s): 04/29/24 - 05/29/24 [facility] [address] [place] [id number] Encounter Type: Triage Allergies, Adverse Reactions, Alerts No Known Allergies [...] Quantity: 3.0 Unit: tablet Repeat number: 1 Patient Care team information Care Team Personnel Name: Jacquelyn Benites RN Position: Gigi BROWN RN Member Role: Primary Care Nurse Name: Caro Mcgarry RN Position: Gigi BROWN RN Member Role: Primary Care Nurse Name: Crystal SCHULTZ, Gibson Rodriges Position: Reference Physician Member Role: PCP Address: [address] [place] [address] Telecom: Care Team Related Persons Name: ALFIE KISER Insurance Providers Guarantor name: AZALIA Health Plan Information #: 1 Payer: [employer] Member Number: AZALIA Policy Number: AZALIA Group Number: [id number]
--- OUTSIDE RECORDS SUMMARY | 2024-06-13 18:06 | XMS_ITS | Clinical Summary ---
Author Organization [facility] Address [address] [place] [address] Phone Care Team Providers Care Physical Therapy Assistant Name Role Phone Don Rojas MD Primary Care Provider [phone] Allergies No known active allergies Medications aspirin 81 mg EC tablet Take 1 tablet (81 mg total) by mouth 1 (one) time each day. 4 Active atorvastatin (LIPITOR) 40 mg tablet Take 0.5 Tablets by mouth. Prescribed by Dr. Henderson at [facility] Active levothyroxine sodium (TIROSINT) 50 mcg capsule Take 50 mcg by mouth daily. 4 Active nitroglycerin (NITROSTAT) 0.[address] 1 Tablet under the tongue every 5 minutes as needed. Prescribed by Dr. Henderson at [facility] Active Active Problems Problem Noted Date Diagnosed Date Hyperglycemia 02/08/2023 COVID-19 01/10/2023 Overview (02/29/2024): req Paxloliud, to go on line /mass.gov paxlovid Kidney stone 08/05/2022 Overview (02/29/2024): See note/consultation by Dr. Kessler 2021 Subclinical hypothyroidism 03/18/2016 Hypertriglyceridemia 11/30/2015 Coronary artery disease invo lving [place] coronary artery without angina pectoris 02/18/2015 Overview (02/29/2024): stent to LAD, follows with Dr. 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 Gout, unspecified 12/28/2005 Encounters Date Type Department Care Team Description 05/11/2024 9:30 AM EST Office Visit Adult Medicine [address] [phone] Don Rojas MD Hyperglycemia (Primary Dx); Coronary artery disease involving [place] coronary artery of [place] heart without angina pectoris; Hodgkin lymphoma, unspecified Hodgkin lymphoma type, unspecified body region (CMS/HCC); Atrial fibrillation, unspecified type (CMS/HCC); Systolic congestive heart failure, unspecified HF chronicity (CMS/HCC) 04/03/2024 10:43 AM EST - 04/03/2024 11:59 PM EST Hospital Encounter [address] [phone] Pleuritic chest pain; Contusion of chest wall, unspecified laterality, subsequent encounter; Accidental fall, subsequent encounter Discharge Disposition: Home or Self Care 04/03/2024 10:15 AM EST Office Visit Adult [address] [phone] Don Rojas MD Pleuritic chest pain (Primary Dx); Contusion of chest wall, unspecified laterality, subsequent encounter; Accidental fall, subsequent encounter; Hodgkin lymphoma, unspecified Hodgkin lymphoma type, unspecified body region (CMS/HCC); Traumatic injury of head, subsequent encounter; Coronary artery disease involving [place] coronary artery of [place] heart without angina pectoris 03/30/2024 Telephone Adult [address] [phone] Don Rojas MD Referral (Referral for [facility] Oncology/Hematology) from Last 3 Months Immunizations Name Administration Dates Next Due [id number] (Pentacel) 2mo to less than 5yo 08/25/2015,08/24/2014,06/20/2014 [id number] (Pediarix) 6 w ks to less than [...] ABVD chemotherapy Coronary artery disease invo lving [place] coronary artery without angina pectoris 02/18/2015 DX:Coronary ar quynh disease involving [place] coronary artery without angina pectoris; COMMENT: stent [...] Recorded Sex Assigned at Not on file Legal Sex Male 2:41 AM EST Gender Identity Not on file Sexual Orientation Not on file Obstetrics History Last Filed Vital Signs Vital Sign Reading Time Taken Comments Blood Pressure 96/60 05/11/2024 9:34 AM EST Pulse 72 05/11/2024 9:34 AM EST Temperature 36 ??C (96.8 ??F) 05/11/2024 9:3 4 AM EST Respiratory Rate 20 05/11/2024 9:34 AM EST Oxygen Saturation 96% 02/08/2023 8:5 1 AM EST at rest, room air Inhaled Oxygen Concentration - - Weight 73.5 kg (162 lb) 05/11/2024 9:34 AM EST Height 177.8 cm (5' 10 ) 05/11/2024 9:3 4 AM EST Body Mass Index 23.24 05/11/2024 9:34 AM EST Plan of Treatment Upcoming Encounters Date Type Department Care Team (Late st Contact Info) Description 08/08/2024 9:45 AM EDT Office Visit Adult Medicine [address] [phone] Don Rojas MD [address] [place] [address] Health Maintenance Due Date Last Done Comments Zoster Vaccines (1 of 2) 07/03/1974 RSV Immunization Patients 60+ Years Old (1 - Risk 60-74 years 1-dose series) 2015 Hepatitis B Vaccines (3 of 3 - 19+ 3-dose series) 09/30/2015 08/05/2015, 08/05/2015, 08/24/2014, Additional history exists Pneumococcal Vaccine: 50+ Years (3 of 3 - PPSV23, PCV20 or PCV21) 06/21/2019 06/20/2014, 04/03/2014, 01/17/2014, Additional history exists [...] 12/28/2023 Colorectal Cancer Screening: Colonoscopy 04/19/2029 04/19/2019 Meningococcal ACWY Vaccine Aged Out 06/20/2014 N [...] on patient's age to complete this topic Meningococcal B Vacine Aged Out No lo nger eligible based on patient's age to complete [...] Signed Date: 04/03/2024 11:25 ET Workstation ID: [id number] Transcribed By: Self Edit Transcribed Date: 04/03/2024 [...] Signed Date: 04/03/2024 11:25 ET Workstation ID: [id number] Transcribed By: Self Edit Transcribed Date: 04/03/2024 11:24 ET Don Rojas MD IMG XR PROCEDURES Final Result * Lipid panel (12/28/2023) [facility] LDL/HDL Ratio 3 <=4 Triglycerides 150 <=150 mg/dL Cholesterol 141 <=200 mg/dL HDL 42 >=40 mg/dL LDL Cholesterol 69 <=100 mg/dL Blood Venous blood specimen / Unknown Result [facility] Ashutosh SCHULTZ LAB BLOOD ORDERABLES Ann l Result * Annual BMP Blood Test (03/08/2023) [facility] Annual BMP Blood Test abstracted Result [facility] Ashutosh SCHULTZ HEALTH MAINTENANCE Final Result * Colonoscopy (04/19/2019) [facility] Colonoscopy no interpretation , abstracted Anatomical Region Laterality Modality Other Result [facility] Ashutosh SCHULTZ HEALTH MAINTENANCE Final Result * Hepatitis C Screening (11/25/2015) [facility] Hepatitis C Screening abstracted us Historical Provider HEALTH MAINTENANCE Final Result from Last 3 Months or Most Recently Relevant to Health Maintenance Insurance [employer] Care Teams Physical Therapy Assistant Relationship Specialty Start Date End Date Don Rojas MD [address] [place] [address] PCP - General 07/21/1997
--- OUTSIDE RECORDS SUMMARY | 2024-06-13 18:06 | XMS_ITS | Patient Health Record ---
Author Organization [facility] Address [address] [place] [address] Care Team Providers Care Core Composer Feeder Name Role Phone Crystal SCHULTZ, Don Arreaga Primary Care Provider Unav ailable Bran Quigley Unavailable [phone] Allergies Allergen (clinical drug ingredient) Drug/Non Drug [...] W/U Status Risk Notes Problem Atherosclerosis of [place] arteries of the extremities ([id number]) Atherosclerosis of [place] artery of both lower extremities, with unspecified presence of clinical manifestation (I70.203) Active confirmed Plan Of Treatment Pending Test Test Name Order Date X ray : Foot, right 3V 12/22/2022 Insurance Providers Payer Name Payer Address Payer Phone Subscriber Number Group Number Insured Name Patient Relationship to Insured Coverage Start Date Coverage End Date [employer] Preferred [address] [place] [phone] [id number] Gibson Og Self - patient is the insured Medical (General) History Medical History History ICD Code Broken bones covid-19 Heart disease Cancer Transfusions Rotator cuff concerns Surgical History Surgery Date(Month/Year) Stent 02/2013
--- OUTSIDE RECORDS SUMMARY | 2024-06-13 18:06 | XMS_ITS ---
Author Organization [facility] Address [address] [place] [address] Care Team Providers Care Wafer Fabrication Operator Name Role Phone Crystal SCHULTZ, Don Arreaga Primary Care Provider Unav ailable Bran Quigley Unavailable [phone] Allergies Allergen (clinical drug ingredient) Drug/Non Drug [...] W/U Status Risk Notes Problem Atherosclerosis of [place] arteries of the extremities ([id number]) Atherosclerosis of [place] artery of both lower extremities, with unspecified presence of clinical manifestation (I70.203) Active confirmed Vital Signs Height 5 ft 8 in in 12/22/2022 Weight 165 lbs 12/22/2022 BMI 25.09 kg/m2 12/22/2022 Encounters Encounter Location Date Provider Diagnosis [facility] [address] [place] [address] 12/22/2022 Bran Soraida Pain in right foot M79.671 ; Pain in right ankle and joints of right foot M25.571 ; Bursitis of intermetatarsal bursa of right foot M77.51 ; Metatarsalgia, right foot M77.41 and Atherosclerosis of [place] artery of both lower extremities, with unspecified [...] foot (ICD-10 - M77.41) 12/22/2022 Atherosclerosis of [place] artery of both lower extremities, with unspecified presence of clinical manifestation (ICD-10 - I70.203) Plan Of Treatment Pending Test Test Name Order Date X ray : Foot, right 3V 12/22/2022 Next Appt Details Follow Up: prn, Reason: Progress Notes * Gibson OG MDOB: [birth year] (67 yo M)Acc No.[id number]:12/22/2022 Progress Notes Patient:?Gibson Og Provider:?Bran Quigley DPM :1955???Age:67 Y???Sex:Male Fili e:12/22/2022 Address:[address] [place], [place] [id number] Pcp:Don Rojas MD Subjective: * Chief Complaints: [...] - M77.41, Chronic problem, Worse (4)?5.?Atherosclerosis of [place] artery of both lower extremities, with unspecified presence of clinical manifestation - I70.203? Plan: * Treatment: * Procedure Codes:?71957 X-RAY EXAM OF RIGHT FOOT 3V, Modifiers: [...] for Mary hou/Mannie/Сергей on:?06/13/2024 06:06 PM EDT History and Physical Notes * HPI (History [...]
== END 2024-06-13 15:44 | disposition home or self-care (01) ==
PROVIDERS: PCP Internal Medicine; Visit Provider Internal Medicine Cardiovascular Disease
DX: I42.9 Cardiomyopathy, unspecified (principal); I49.3 Ventricular premature depolarization; I25.10 Atherosclerotic heart disease of native coronary artery without angina pectoris; I95.1 Orthostatic hypotension
CPT/HCPCS: 99214; G2211

== ENCOUNTER → 2024-06-13 15:12 | Outpatient (BNVA) | payer MEDICARE, SELFPAY | PROVIDERS: PCP Internal Medicine; Visit Provider Internal Medicine Cardiovascular Disease | DX: I42.9 Cardiomyopathy, unspecified (principal); I49.3 Ventricular premature depolarization; I25.10 Atherosclerotic heart disease of native coronary artery without angina pectoris; I95.1 Orthostatic hypotension | CPT/HCPCS: 99212 ==

== ENCOUNTER 2024-10-12 15:01 | Outpatient (AMB) | payer MEDICARE, SELFPAY ==
[2024-10-12 15:03] VITALS: BP 130/80; PULSE 77; BMI 23.7
--- NOTE | 2024-10-12 15:03 | MHC.OFFVIS ---
Vital Signs 10/12/24 15:03 Height 5 ft 10 in Weight 165 lb 5.547 oz BMI 23.7 BP 130/80 Blood Pressure Location Lt brachial Position Sitting Pulse 77 Intake Visit Reasons: 3 mth f/up Intake Note: 3 month follow-up Portable Grinding Machine Operator Required: No Allergies No Known Allergies Allergy (Verified 06/23/24 10:34) Medication List - Last Reconciled 10/12/24 by Chandu Boswell MD aspirin 81 mg PO DAILY atorvastatin 20 mg PO DAILY ketorolac 10 mg PO Q6H PRN levothyroxine 50 mcg PO DAILY methocarbamol 750 mg PO Q8H PRN nitroglycerin 0.4 mg sublingual .prn HPI Comments Details: Esteban comes for follow-up. He said he has been doing very well and has been very active and functional. He denies any symptoms of exertional chest pain. Recently traveled and was climbing multiple stairs without having any issues. He continues to have symptoms of orthostatic lightheadedness. No palpitations. No chest pain. Taking all his medications. Underwent ablation for PVCs in July. [facility] Medical History Rotator cuff arthropathy of right shoulder Rotator cuff arthropathy Kidney stone Orthostatic hypotension dysautonomic syndrome CAD (coronary artery disease) History of Hodgkin's lymphoma Surgical History Stented coronary artery H/O stem cell transplant Family History Father Diabetes Brother Hx of thyroid disease Brother Hx of thyroid disease Sister Hx of thyroid disease Sister Hx of thyroid disease Sister Hx of thyroid disease Sister Hx of thyroid disease Sister Hx of thyroid disease Social History Household Members: Spouse Housing: House Are you a primary day care assistant to a significant other at home: No Do you presently have visiting nurse or other home services: No Alcohol intake: former Patient Tobacco Use Status: Never used Tobacco service: No Current occupational status: employed Review of Systems Const Denies chills, Denies fatigue, Denies fever(s), Denies frequent falls, Denies weakness, Denies weight gain and Denies weight loss ENT Denies dizziness Card Denies chest pain, Denies leg edema, Denies lightheadedness, Denies palpitations, Denies dyspnea, Denies dyspnea on exertion, Denies orthopnea and Denies other (loss of consciousness) Resp Denies cough, Denies dyspnea and Denies dyspnea on exertion GI Denies hematochezia and Denies change in stool character Musc Denies abnormal gait, Denies muscle weakness, Denies numbness, Denies radiating pain into limb and Denies tingling Neuro Denies abnormal gait, Denies dizziness, Denies frequent falls, Denies numbness, Denies tingling and Denies weakness Endo Denies fatigue and Denies palpitations Physical Exam Vital Signs: Last Vital Signs Pulse 77 10/12/24 15:03 BP 130/80 10/12/24 15:03 BMI result Body Mass Index 23.7 Const General: cooperative, healthy appearing, comfortable and no acute distress Orientation/consciousness: patient oriented x3 Neck Neck: Yes normal visual inspection and Yes no JVD Resp Effort & Inspection: normal respiratory effort Auscultation: clear to auscultation bilaterally, no rales, no rhonchi and no wheezes Cardio Jugular venous distension: no JVD Rate: regular rate Rhythm: abnormal rhythm with ectopic beats Heart sounds: S1 normal heart sound present, S2 normal heart sound present, no murmurs and no rubs Neuro General: patient oriented x3 Extrem General: Yes normal to inspection and No no pedal edema Psych Appearance: grossly normal Mental Status: mental status grossly normal Speech and movement: Normal speech and movement present Office Procedures EKG Details: EKG shows normal sinus rhythm normal EKG 12837-[id number], Complete Assessment & Plan Assessment & Plan (1) Cardiomyopathy: Code(s): I42.9 - Cardiomyopathy, unspecified Category: Medical Plan: 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 Could be nonischemic related to prior lymphoma therapy. Currently will await echo report in a month's time. 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 If not will need ICD therapy. Can not tolerate neurohormonal modulation due to orthostatic hypotension. (2) CAD (coronary artery disease): Code(s): I25.10 - Atherosclerotic heart disease of [place] coronary artery without angina pectoris Category: Medical Plan: CAD with prior stent to the LAD. Continue low-dose aspirin therapy. Continue high-intensity statin therapy with target goal LDL less 70 mg/dL. Continue maintain activity level as tolerated. Will follow up in the clinic in 6 months time, sooner p.r.n.. Thank you for allowing me to partake in his care Coding Level of Care Code Est Pt Level 4 (26837) Complex EM visit Add On G2211 Diagnoses Cardiomyopathy I42.9 CAD (coronary artery disease) I25.10 CPT Codes EKG - CPT: 31346-Mqtnyrghufoqsgpwq, Complete ([id number])
== END 2024-10-12 15:39 | disposition home or self-care (01) ==
LOC: HO.HCS 15:02
PROVIDERS: PCP Internal Medicine; Visit Provider Internal Medicine Cardiovascular Disease
DX: I42.9 Cardiomyopathy, unspecified (principal); I25.10 Atherosclerotic heart disease of native coronary artery without angina pectoris
CPT/HCPCS: 93010; 99214; G2211

== ENCOUNTER → 2024-10-12 15:01 | Outpatient (BNVA) | payer MEDICARE, SELFPAY | PROVIDERS: PCP Internal Medicine; Visit Provider Internal Medicine Cardiovascular Disease | DX: I25.10 Atherosclerotic heart disease of native coronary artery without angina pectoris (principal); I42.9 Cardiomyopathy, unspecified | CPT/HCPCS: 93005; 99212 ==

== ENCOUNTER 2024-10-13 08:54 | Outpatient (REF) | payer MEDICARE, SELFPAY ==
--- OUTSIDE RECORDS SUMMARY | 2024-10-13 08:59 | XMS_ITS | Clinical Summary ---
Author Organization [facility] Address [address] [place] [phone] Phone Care Team Providers Care Toilet And Laundry Soap Supervisor Name Role Phone Don Rojas MD Primary Care Provider [phone] Allergies No known active allergies Medications aspirin 81 mg EC tablet Take 1 tablet (81 mg total) by mouth 1 (one) time each day. 4 Active atorvastatin (LIPITOR) 40 mg tablet 1 (one) time each day. Active nitroglycerin (NITROSTAT) 0.[address] 1 Tablet under the tongue every 5 minutes as needed. Prescribed by Dr. Henderson at [facility] Active oxyBUTYnin (DITROPAN) 5 mg tablet Take 1 tablet (5 mg total) by mouth 3 (three) times a day if needed (spasms) for up to 20 doses. 20 each 5 Active Additional Information Patient not taking.Reported on 08/08/2024 oxyCODONE (ROXICODONE) 5 mg immediate release tablet Take 1 tablet (5 mg total) by mouth every 6 (six) hours if needed for severe pain for up to 6 doses. Max Daily Amount: 20 mg 6 tablet 5 Active Additional Information Patient not taking.Reported on 08/08/2024 diazePAM (VALIUM) 5 mg tablet Take 1 tablet (5 mg total) by mouth 1 (one) time if needed (stent removal appointment) for up to 1 dose. Max Daily Amount: 5 mg 1 tablet 5 Active Additional Information Patient not taking.Reported on 08/08/2024 levothyroxine (SYNTHROID, LEVOTHROID) 50 mcg tablet Take 1 tablet (50 mcg total) by mouth 1 (one) time each day before breakfast. 90 tablet 1 5 Active levothyroxine (SYNTHROID, LEVOTHROID) 50 mcg tablet Take 1 tablet (50 mcg total) by mouth 1 (one) time each day before breakfast. 10/10/19 25 Discontin ued(Reord er) Active Problems Problem Noted Date Diagnosed Date Hyperglycemia 02/08/2023 COVID-19 01/10/2023 Overview (02/29/2024): req Paxlovid, to go on line /[place].gov paxlovid Kidney stone 08/05/2022 Overview (02/29/2024): See note/consultation by Dr. Kessler 2021 Subclinical hypothyroidism 03/18/2016 Hypertriglyceridemia 11/30/2015 Coronary artery disease invo lving sokaogon coronary artery without angina pectoris 02/18/2015 Overview (02/29/2024): stent to LAD, follows with Dr. Lechuga Hodgkin's lymphoma ([facility] V24, [facility] V28) Overview (02/29/2024): S/p ABVD chemotherapy, s/p autologous bone marrow transplant Non-specific colitis 01/16/2009 Gout, unspecified 12/28/2005 Encounters Date Type Department Care Team Description 08/15/2024 Telephone Adult Medicine [address] [phone] Don Rojas MD Referral 08/08/2024 9:45 AM EDT Office Visit Adult Medicine [address] [phone] Don Rojas MD Coronary artery disease involving sokaogon coronary artery of sokaogon heart without angina pectoris (Primary Dx); Hodgkin lymphoma, unspecified Hodgkin lymphoma type, unspecified body region ([facility] V24, [facility] V28); Hyperglycemia; Kidney stone; Subclinical hypothyroidism; Paroxysmal atrial fibrillation ([facility]/HCC V24, CMS/HCC V28); Renal insufficiency 07/20/2024 9:11 AM EDT Anesthesia Event [facility] Main OR [address] [place] [address] Jillian Price MD 07/20/2024 9:00 AM EDT - 07/20/2024 10:30 AM EDT Surgery [facility] Main OR [address] [place] [address] Vanessa Soliman MD CYSTOSCOPY,RIGHT URETEROSCOPY, LASER LITHOTRIPSY,STENT [58123 (CPT )] 07/20/2024 7:37 AM EDT - 07/20/2024 11:46 AM EDT Hospital Encounter [facility] Main OR [address] [place] [address] Vanessa Soliman MD Calculus of kidney Discharge Disposition: Home or Self Care 07/20/2024 7:25 AM EDT - 07/20/2024 11:59 PM EDT Hospital Encounter [facility] Xray [address] [place] [address] Pain Discharge Disposition: Home or Self Care from Last 3 Months Immunizations Name Administration Dates Next Due CExI-SKO-FSP (Pentacel) 2mo to less than 5yo 08/25/2015,08/24/2014,06/20/2014 [id number] (Pediarix) 6 w ks to less than [...] repair and augmentation, subacromial decompression, labral debridement. LITHOTRIPSY CYSTOSCOPY KIDNEY STONE SURGERY BONE MARROW TRANSPLANT 2013 Medical History Medical History Date Comments Gout, unspecified 12/28/2005 DX:Gout, unspe cified Contact dermatitis and other eczema, due to unspecified cause 12/28/2005 DX:Contact dermatitis and ot her eczema, due to unspecified cause Regional enteritis of unspecified site 11/12/2006 DX:Regional enteritis of unspecified site Hypertriglyceridemia 11/15/2006 DX:Hypertri glyceridemia Hodgkin's lymphoma (CMS/HCC V24, CMS/HCC V28) 10/24/2012 DX:Hodgkin's lymphoma (HCC); COMMENT: S/p ABVD chemotherapy Coronary artery disease invo lving sokaogon coronary artery without angina pectoris 02/18/2015 DX:Coronary ar quynh disease involving sokaogon coronary artery without angina pectoris; COMMENT: stent to LAD, follows with Dr. Lechuga History of basal cell carcinoma 08/19/2020 DX:History of basal cell carcinoma; COMMENT: BCC 08/16 scalp (nodular) Chronic kidney disease Hypothyroidism Heart disease Arrhythmia History of transfusion Family History Medical History Relation Name Comments [...] drink = 0.6 oz pur e alcohol) Interpersonal Safety Answer Date Record ed Physical Abuse 07/20/2024 Verbal Abuse 07/20/2024 Sex and Gender Information Value Date Recorded Sex Assigned at Male 07/05/2024 4:40 PM EDT Legal Sex Male 2:41 AM EST Gender Identity Male 07/05/2024 4:40 PM EDT Sexual Orientation Straight 07/05/2024 4: 40 PM EDT Obstetrics History Last Filed Vital Signs Vital Sign Reading Time Taken Comments Blood Pressure 108/52 08/08/2024 9:35 AM EDT Pulse 78 08/08/2024 9:35 AM EDT Temperature 36.2 C (97.1 F) 08/08/2024 9:35 AM EDT Respiratory Rate 20 08/08/2024 9:35 AM EDT Oxygen Saturation 100% 07/20/2024 10:54 AM EDT Inhaled Oxygen Concentration - - Weight 74.8 kg (165 lb) 08/08/2024 9:35 AM EDT Height 177.8 cm (5' 10 ) 08/08/2024 9:35 AM EDT Body Mass Index 23.68 08/08/2024 9:35 AM EDT Plan of Treatment Upcoming Encounters Date Type Department Care Team (Late st Contact Info) Description 11/09/2024 9:30 AM EDT Office Visit Adult Medicine [facility] [address] [place], [place] [phone] Don Rojas MD [address], [place] Health Maintenance Due Date Last Done Comments Zoster Vaccines (1 of 2) 07/03/1974 RSV Immunization Adult Patients (1 - Risk 60-74 years 1-dose series) 2015 Hepatitis B Vaccines (3 of 3 - 19+ 3-dose series) 09/30/2015 08/05/2015, 08/05/2015, 08/24/2014, Additional history exists Pneumococcal Vaccine: 50+ Years (3 of 3 - PPSV23, PCV20 or PCV21) 06/21/2019 06/20/2014, 04/03/2014, 01/17/2014, Additional history exists Medicare Annual Wellness Visit 03/07/2022 Social Influencers of Health Screening 03/07/2022 COVID-19 Vaccine ( season) 2023 05/19/2021, 06/26/2020, 06/05/2020 Depression Screening 03/29/2024 Influenza Vaccine (#1) 2024 , 01/13/2019, 02/15/2017, Additional history exists Hypertension/CHF/CAD Annual BMP Blood Test 07/05/2025 07/05/2024, 05/31/2024, 06/02/2023, Additional history exists Falls Risk Assessment 07/20/2025 07/20/2024 DTaP,Tdap,and Td Vaccines (10 - Td or [...] history exists Hepatitis C Screening Completed 11/25/2015 HPV Vaccines Aged Out No longer eligi ble based on patient's age to complete this topic Hepatitis A Vaccines Aged Out No long er eligible based on patient's age to complete this topic Meningococcal B Vaccine Aged Out No l onger eligible based on patient's age to complete this topic RSV Immunization Patients Under 20 months Aged Out No longer eligible based on patient's age to complete this topic Varicella Vaccines Aged Out No longer eligible based on patient's age to complete this topic Medical Devices Implanted Type Area Middleware Systems Architect Device Identifier Shelf Expiration Date Model / Serial / Lot Stent Uret [id number] Contr Percuflex Hydroplus - Sn/A - [id number] Implanted:Qty: 1 on 07/20/2024 by Vanessa Soliman MD at [facility] Stents Right: Ureter [employer]/GYNECOLG Y 03/15/2027 [id number] / N/A / [id number] Procedures Procedure Name Priority Date/Time Associated Diagnosis Comments XR UROGRAM RETROGRADE Routine 07/20/2024 9:57 AM EDT Pain TH AN LMA(NO CHARGE) Routine 07/20/2024 9:39 AM EDT CULTURE URINE Routine 07/20/2024 9:30 AM EDT Calculus of kidney NC CYSTO W URETEROSCOPY/PYELOSC OPY W LITHOTRIPSY INCL INDWELLING URTRL STNT 07/20/2024 9:10 AM EDT Calculus of kidney Case Notes C-ARM, HOLMIUM UMS PROCEDURAL ECG Routine 07/20/2024 8:08 AM EDT COMPREHENSIVE METABOLIC PANEL STAT 07/05/2024 3:39 PM EDT LIPID PANEL Routine 12/28/2023 HM COLONOSCOPY Routine 04/19/2019 HM HEPATITIS C SCREENING Routine 11/25/2015 from Last 3 Months or Most Recently Relevant to Health Maintenance Results * XR Urogram Retrograde (07/20/2024 9:57 AM EDT) Anatomical Region Laterality Modality Body Radio Fluoroscop y 07/20/2024 11:1 5 AM EDT Narrative 07/20/2024 11:15 AM EDT Fluoroscopic spot radiographs obtained during a right endourologic procedure are submitted. No radiologist consultation was requested or provided during this procedure and there is no radiologist professional charge. This report is generated for documentation purposes only. The dose-area product for this procedure was 0.1227 Gy*cm2. PQRI CPT II G9500 -------- FINAL REPORT -------- Dictated By: Ridge Blandon Dictated Date: 07/20/2024 11:15 ET Assigned Physician: Ridge Blandon Reviewed and Electronically Signed By: Ridge Bladnon Signed Date: 07/20/2024 11:15 ET Workstation ID: [id number] Transcribed By: Self Edit Transcribed Date: 07/20/2024 11:15 ET Procedure Note Ridge Blandon MD - 07/20/2024 Fluoroscopic spot radiographs obtained during a right endourologicprocedure are submitted. No radiologist consultation was requested orprovided during this procedure and there is no radiologist professionalcharge. This report is generated for documentation purposes only. The dose-area product for this procedure was 0.1227 Gy*cm2. PQRI CPT II G9500 -------- FINAL REPORT -------- Dictated By: Ridge Blandon Dictated Date: 07/20/2024 11:15 ET Assigned Physician: Ridge Blandon Reviewed and Electronically Signed By: Ridge Blandon Signed Date: 07/20/2024 11:15 ET Workstation ID: [id number] Transcribed By: Self Edit Transcribed Date: 07/20/2024 11:15 ET us Vanessa Soliman MD IMG FLUOROSCOPY PROC EDURES Final Result * TH AN LMA(NO CHARGE) (07/20/2024 9:39 AM EDT) Jillian Zuniga MD - 07/20/2024 9:39 AM EDT Jillian Price MD 07/20/2024 9:40 AM General Information and Staff Patient location during procedure: OR Anesthesiologist: Jillian Price MD Performed by: Jillian Price MD Authorized by: Jillian Price MD Intubation Urgency: elective Final Airway Details Number of attempts at approach: 1 Number of other approaches attempted: 1Final airway type: LMA Indications and Patient Condition Indications for airway management: anesthesia Spontaneous ventilation: present Preoxygenated: yes Soft Tissue Damage: Yes Dentition Unchanged: Yes MILS maintained throughout us Jillian Price MD ANESTHESIA ORDERABLES Final Resu lt * Culture urine (07/20/2024 9:30 AM EDT) Culture, Urine No growth 07/22/2024 11:28 AM EDT [facility] Urine Urinary bladder structure / Unknown 07/20/2024 9:30 AM EDT 07/20/2024 10:27 AM EDT us Vanessa Soliman MD LAB MICROBIOLOGY - G ENERAL ORDERABLES Final Result Performing Organization Address [facility] Co de Phone Number [facility] [address] [place] [address], [place] [phone] * ECG 12 lead - Procedural (No Charge) (07/20/2024 8:08 AM EDT) Ventricular Rate ECG 66 BPM GEMUSE Atrial Rate 66 BPM GEMUSE P-R Interval 138 ms GEMUSE QRS Duration 82 ms GEMUSE Q-T Interval 406 ms GEMUSE QTc 425 ms GEMUSE P Wave [place] 36 degrees GEMUSE R [place] 23 degrees GEMUSE T [place] 54 degrees GEMUSE ECG Interpretation Sinus rhythm with occasional Premature ventricular complexes Otherwise normal ECG When compared with ECG of 18-NOV-2021 12:44, Premature ventricular complexes are now Present Confirmed by Miguel SANDERS YUFENG ([id number]) on 07/20/2024 12:56:20 PM GEMUSE 07/20/2024 8:08 AM EDT 07/20/2024 12:56 PM EDT us Jillian Price MD ECG ORDERABLES Final Result Performing Organization Address [facility]/ZIP Co de Phone Number GEMUSE * (ABNORMAL) Comprehensive metabolic panel (07/05/2024 3:39 PM EDT) Sodium 136 133 - 145 mmol/L LAB CHEMISTRY METHOD 07/05/2024 4:50 PM [facility] Potassium 3.9 3.5 - 5.5 mmol/L LAB CHEMISTRY METHOD 07/05/2024 4:50 PM [facility] Chloride 103 96 - 110 mmol/L LAB CHEMISTRY METHOD 07/05/2024 4:50 PM [facility] CO2 26 21 - 32 mmol/L LAB CHEMISTRY METHOD 07/05/2024 4:50 PM [facility] Anion Gap 7 3 - 11 LAB CHEMISTRY METHOD 07/05/2024 4:50 PM [facility] Glucose 115(H) 70 - 100 mg/dL LAB CHEMISTRY METHOD 07/05/2024 4:50 PM [facility] BUN 20 5 - 25 mg/dL LAB CHEMISTRY METHOD 07/05/2024 4:50 PM [facility] Creatinine 1.64(H) 0.70 - 1.30 mg/dL LAB CHEMISTRY METHOD 07/05/2024 4:50 PM [facility] eGFR 45(L) >=60 mL/min/1. 73m2 LAB CHEMISTRY METHOD 07/05/2024 4:50 PM [facility] Comment:Calculation based on the Chronic Kidney Disease Epidemiology Collaboration (CKD-EPI) equation refit without adjustment for race. BUN/Creatinine Ratio 12.2 LAB CHEMISTRY METHOD 07/05/2024 4:50 PM [facility] Calcium 9.5 8.5 - 10.5 mg/dL LAB CHEMISTRY METHOD 07/05/2024 4:50 PM [facility] AST (SGOT) 21 10 - 42 unit/L LAB CHEMISTRY METHOD 07/05/2024 4:50 PM [facility] ALT (SGPT) 26 10 - 60 unit/L LAB CHEMISTRY METHOD 07/05/2024 4:50 PM EDT [facility] Alkaline Phosphatase 118 42 - 121 unit/L LAB CHEMISTRY METHOD 07/05/2024 4:50 PM EDT [facility] Total Protein 6.9 6.0 - 8.0 g/dL LAB CHEMISTRY METHOD 07/05/2024 4:50 PM EDT [facility] Albumin 4.1 3.2 - 5.0 g/dL LAB CHEMISTRY METHOD 07/05/2024 4:50 PM EDT [facility] Total Bilirubin 2.0(H) 0.0 - 1.4 mg/dL LAB CHEMISTRY METHOD 07/05/2024 4:50 PM EDT [facility] Blood Venous blood specimen / Unknown Venipuncture / Unknown 07/05/2024 3:39 PM EDT 07/05/2024 3:52 PM EDT us David Martinez MD LAB BLOOD ORDERABLES Final Resu lt [facility] [address] [place] [address], * Lipid panel (12/28/2023) [facility] LDL/HDL Ratio 3 <=4 Triglycerides 150 <=150 mg/dL Cholesterol 141 <=200 mg/dL HDL 42 >=40 mg/dL LDL Cholesterol 69 <=100 mg/dL Blood Venous blood specimen / Unknown Historical Provider LAB BLOOD ORDERABLES Ann l Result * Colonoscopy (04/19/2019) [facility] Colonoscopy no interpretation , abstracted Anatomical Region Laterality Modality Other Historical Provider HEALTH MAINTENANCE Final Result * Hepatitis C Screening (11/25/2015) [facility] Hepatitis C Screening abstracted us Historical Provider HEALTH MAINTENANCE Final Result from Last 3 Months or Most Recently Relevant to Health Maintenance Insurance [employer] Care Teams Toilet And Laundry Soap Supervisor Relationship Specialty Start Date End Date Don Rojas MD [address] [place] [address] PCP - General 07/21/1997
--- OUTSIDE RECORDS SUMMARY | 2024-10-13 08:59 | XMS_ITS | Patient Health Record ---
Author Organization [facility] Address [address] [place] [address] Care Team Providers Care Clinical Documentation Consultant Name Role Phone Don Rojas MD Primary Care Provider Unav ailable Bran Quigley Unavailable [phone] Allergies Allergen (clinical drug ingredient) Drug/Non Drug [...] Problem Status W/U Status Risk Notes Problem Bilateral atherosclerosis of arteries of lower limbs (disorder) ([id number] ) Atherosclerosis of [place] artery of both lower extremities, with unspecified presence of clinical manifestation (I70.203) Active confirmed Plan Of Treatment Pending Test Test Name Order Date X ray : Foot, right 3V 12/22/2022 Insurance Providers Payer Name Payer Address Payer Phone Subscriber Number Group Number Insured Name Patient Relationship to Insured Coverage Start Date Coverage End Date [employer] Preferred [address] [place] [address] [id number] Gibson Og Self - patient is the insured Medical (General) History Medical History History ICD Code Broken bones covid-19 Heart disease Cancer Transfusions Rotator cuff concerns Surgical History Surgery Date(Month/Year) Stent 02/2013
--- OUTSIDE RECORDS SUMMARY | 2024-10-13 08:59 | XMS_ITS | Clinical Summary ---
Author Organization [facility] Address [address] [place] [address] Care Team Providers Care Land Manager Name Role Phone Unknown, Provider DO Primary Care Provider Unava ilable Social History Tobacco Use Types Packs/Day Years Used Date Smoking Tobacco: Never Assessed Sex and Gender Information Value Date Recorded Sex Assigned at Not on file Legal Sex Male 18:57 EST Gender Identity Not on file Sexual Orientation Not on file Plan of Treatment Health Maintenance Due Date Last Done Comments Hepatitis C Screen 1955 Fall Risk Screening 07/03/2020 COVID-19 Vaccine (2023- season) 2023 RSV Immunization ( o r 60+ Years) (1 - 1-dose 75+ series) 07/03/2030 Care Teams Land Manager Relationship Specialty Start Date End Date Unknown, Provider, DO PCP - General 02/16/12
[2024-10-13 11:25] LABS: Cholesterol 147 mg/dL (<200); HDL Cholesterol 45 mg/dL (>40); Triglycerides 112 mg/dL (<150)
== END 2024-10-13 08:55 | disposition home or self-care (01) ==
LOC: HO.LAB 08:54
PROVIDERS: PCP Internal Medicine; Visit Provider Internal Medicine Cardiovascular Disease
DX: I25.10 Atherosclerotic heart disease of native coronary artery without angina pectoris (principal); Z95.5 Presence of coronary angioplasty implant and graft
CPT/HCPCS: 36415; 80061

== ENCOUNTER → 2024-12-20 09:58 | Outpatient (REF) | payer MEDICARE, SELFPAY ==
--- NOTE | 2024-12-20 10:01 | CA_ITS ---
Transthoracic Echocardiogram Patient (Last, First, Middle): Gibson Og M Gender: M Date of : 1955 Age: 69 Procedure Date: 12/20/2024 Procedure Type: Transthoracic Echocardiogram Location: OP Height: 177.8 cm Weight: 73.48 kg BSA: 1.91 m2 Heart Rate: bpm BP: 118 / 60 mmHg Room Clerk: Referring MD: Chandu Boswell MD Power Switchboard Operator: Chandu Boswell MD Symptoms: I42.9 - Cardiomyopathy, unspecified Study Quality: Adequate ECG Rhythm: Sinus Conclusions: - 1. Mildly reduced LV ejection fraction 45-50% with grade 1 diastolic dysfunction 2. Mild aortic and mitral regurgitation 3. Normal RV systolic pressure 4. No gross pericardial effusion Findings Left Ventricle Normal left ventricular cavity size. There is normal left ventricular wall thickness. The left ventricular systolic function is mildly decreased. The visually estimated ejection fraction is between 45-50%. Spectral Doppler is indicative of an impaired relaxation filling pattern. E/E prime ratio is <8, consistent with normal filling pressures. Evidence suggests grade I (mild) diastolic dysfunction. Right Ventricle Normal right ventricular cavity size and systolic function. Atria Both atria are normal in size. There is no evidence of interatrial shunt. Aortic Valve Normal aortic valve structure and function. There is no aortic valve stenosis. There is mild aortic valve regurgitation. Mitral Valve There is mild anterior and posterior mitral leaflet thickening. There is mild mitral valve regurgitation. There is no mitral valve stenosis. Pulmonic Valve The pulmonic valve is likely normal. There is trace pulmonic valve regurgitation. Tricuspid Valve Normal tricuspid valve structure. There is trace tricuspid valve regurgitation. The right ventricular systolic pressure is normal. The right ventricular systolic pressure is 13 mmHg. Normal right atrial pressure. There is no evidence of pulmonary hypertension. Great Vessels All visible segments of the aorta are normal in size. The pulmonary artery was not well visualized. Venous The inferior vena cava is normal in size and collapses greater than 50% with inspiration. Pericardium/Pleural There is no evidence of pericardial effusion. Prior Study Comparison Changes noted compared to prior study dated: 03/03/2024. LV systolic function has improved Measurements 2D Linear Measurements IVSd: 0.94 0.6-0.9/0.6-1.0 cm LVIDd: 4.44 3.9-5.3/4.2-5.9 cm LVIDd Index: 2.32 2.4-3.2/2.2-3.1 cm/m2 LVIDs: 3.32 2.0-3.6 cm LVPWd: 0.96 0.7-1.1 cm Ao Root: 3.20 2.1-3.5 cm LA Diam: 3.00 2.7-3.8/3.0-4.0 cm LAIDs Index: 1.57 1.5-2.3 cm/m2 LV Mass: 174.00 67-162/88-224 g LV Mass Index: 91.10 43-95/49-115 g/m2 LVOT Diam: 2.10 3.0+(-)1.3 cm 2D Systolic Function EF 4C: 49.80 >55% EF 2C: 48.60 >55% EF BiP: 45.70 >55% Mitral Valve MV Pk E: 0.39 MV PK A: 0.67 MV Decel Time: 144.00 E/A: 0.60 E'Lateral: 5.66 E'Medial: 4.13 E/E' Med: 9.50 E/E' Lat: 7.00 PHT: 42.00 MVA PHT: 5.24 Decel [place]: 2.73 Aortic Valve AoV Pk Mihai: 1.00 AoV Mn Mihai: 0.73 AoV VTI: 0.24 AoV Pk Grad: 4.00 Aov Mn Grad: 2.00 TESSIE Cont.VTI: 1.84 LVOT LVOT Pk Mihai: 0.59 LVOT Mn Mihai: 0.38 LVOT VTI: 0.13 LVOT Pk Grad: 1.00 LVOT Mn Grad: 1.00 LVOT Diam: 2.10 LVOT Area: 3.46 Diastolic Function MV Pk E: 0.39 MV Pk A: 0.67 E/A: 0.60 E'Medial: 4.13 E/E' Med: 9.50 E' Laterial: 5.66 E/E' Lat: 7.00 Right Ventricle TAPSE (mm): 18.00 TVS' Mihai: 9.00 Tricuspid Valve TR Pk Mihai: 1.59 TR Pk Grad: 10.00 RA Press: 3.00 RVSP: 13.00 Great Vessels Aorta Ao Root-2D: 3.20 2.0-3.7 cm Ao Asc: 2.90 2.1-3.4 cm Pulmonary Valve PV Pk Mihai: 0.73 Peak PV Grad: 2.00 Updated in Other Vendor System with Status of Final Chandu Boswell MD electronically signed on 12/20/2024 4:12:03 PM with status of Final
--- OUTSIDE RECORDS SUMMARY | 2024-12-20 12:04 | XMS_ITS | Clinical Summary ---
Author Organization [facility] Address [address] [place] [phone] Phone Care Team Providers Care Area Manager Name Role Phone Don Rojas MD Primary Care Provider [phone] Allergies No known active allergies Medications aspirin 81 mg EC tablet Take 1 tablet (81 mg total) by mouth 1 (one) time each day. 4 Active atorvastatin (LIPITOR) 40 mg tablet 1 (one) time each day. Active nitroglycerin (NITROSTAT) 0.[address] 1 Tablet under the tongue every 5 minutes as needed. Prescribed by Dr. Henderson at [facility] Active oxyBUTYnin (DITROPAN) 5 mg tablet Take 1 tablet (5 mg total) by mouth 3 (three) times a day if needed (spasms) for up to 20 doses. 20 each 5 Active Additional Information Patient not taking.Reported on 11/09/2024 oxyCODONE (ROXICODONE) 5 mg immediate release tablet Take 1 tablet (5 mg total) by mouth every 6 (six) hours if needed for severe pain for up to 6 doses. Max Daily Amount: 20 mg 6 tablet 5 Active Additional Information Patient not taking.Reported on 11/09/2024 diazePAM (VALIUM) 5 mg tablet Take 1 tablet (5 mg total) by mouth 1 (one) time if needed (stent removal appointment) for up to 1 dose. Max Daily Amount: 5 mg 1 tablet 5 Active Additional Information Patient not taking.Reported on 11/09/2024 levothyroxine (SYNTHROID, LEVOTHROID) 50 mcg tablet Take 1 tablet (50 mcg total) by mouth 1 (one) time each day before breakfast. 90 tablet 1 Active Active Problems Problem Noted Date Diagnosed Date Hyperglycemia 02/08/2023 COVID-19 01/10/2023 Overview (02/29/2024): req Paxlovid, to go on line /mass.gov paxlovid Kidney stone 08/05/2022 Overview (02/29/2024): See note/consultation by Dr. Kessler 2021 Subclinical hypothyroidism 03/18/2016 Hypertriglyceridemia 11/30/2015 Coronary artery disease invo lving ramona coronary artery without angina pectoris 02/18/2015 Overview (02/29/2024): stent to LAD, follows with Dr. Lechuga Hodgkin's lymphoma ([facility] V24, [facility] V28) Overview (02/29/2024): S/p ABVD chemotherapy, s/p autologous bone marrow transplant Non-specific colitis 01/16/2009 Gout, unspecified 12/28/2005 Encounters Date Type Department Care Team Description 11/09/2024 9:30 AM EDT Office Visit Adult Medicine [address] [phone] Don Rojas MD Coronary artery disease involving ramona coronary artery of ramona heart without angina pectoris (Primary Dx); Paroxysmal A-fib (CMS/HCC V24, CMS/HCC V28); Subclinical hypothyroidism; Kidney stone from Last 3 Months Immunizations Name Administration Dates Next Due [id number] (Pentacel) 2mo to less than 5yo 08/25/2015,08/24/2014,06/20/2014 [id number] (Pediarix) 6 w ks to less than [...] site Hypertriglyceridemia 11/15/2006 DX:Hypertri glyceridemia Hodgkin's lymphoma ([facility] V24, [facility]/HCC V28) 10/24/2012 DX:Hodgkin's lymphoma (HCC); COMMENT: S/p ABVD chemotherapy Coronary artery disease invo lving ramona coronary artery without angina pectoris 02/18/2015 DX:Coronary ar quynh disease involving ramona coronary artery without angina pectoris; COMMENT: stent [...] Sign Reading Time Taken Comments Blood Pressure 121/63 11/09/2024 9:45 AM EDT Pulse 60 11/09/2024 9:45 AM EDT Temperature 36.3 C (97.3 F) 11/09/2024 9:45 AM EDT Respiratory Rate 12 11/09/2024 9:45 AM EDT Oxygen Saturation 100% 07/20/2024 10:54 AM EDT Inhaled Oxygen Concentration - - Weight 76.7 kg (169 lb) 11/09/2024 9:45 AM EDT Height 177.8 cm (5' 10 ) 11/09/2024 9:45 AM EDT Body Mass Index 24.25 11/09/2024 9:45 AM EDT Plan of Treatment Upcoming Encounters Date Type Department Care Team (Late st Contact Info) Description 04/11/2025 8:45 AM EST Office Visit Adult Medicine [facility] [address] [place] [phone] Don Rojas MD [address] [place] [address] Health Maintenance Due Date Last Done Comments [...] 03/07/2022 Social Influencers of Health Screening 03/07/2022 Depression Screening 03/29/2024 COVID-19 Vaccine ( season) 2024 05/19/2021, 06/26/2020, 06/05/2020 Influenza Vaccine (#1) 2024 , 01/13/2019, 02/15/2017, [...] this topic Medical Devices Implanted Type Area Animal Anatomy Teacher Device Identifier Shelf Expiration Date Model / Serial / Lot Stent Uret [id number] Contr Percuflex Hydroplus - Sn/A - [id number] Implanted:Qty: 1 on 07/20/2024 by Vanessa Soliman MD at [facility] Stents Right: Ureter [employer] Y 03/15/2027 [id number] / N/A / [id number] Procedures Procedure Name Priority Date/Time Associated Diagnosis Comments EXTERNAL CLINICAL LAB 10/13/2024 COMPREHENSIVE METABOLIC PANEL STAT 07/05/2024 3:39 PM EDT LIPID PANEL Routine 12/28/2023 COLONOSCOPY Routine 04/19/2019 HEPATITIS C SCREENING Routine 11/25/2015 from Last 3 Months or Most Recently Relevant to Health Maintenance Results * External clinical lab (10/13/2024) us Provider [facility] LAB BLOOD ORDERABLES Fin al Result * (ABNORMAL) Comprehensive metabolic panel (07/05/2024 3:39 PM EDT) Sodium 136 133 - 145 mmol/L LAB CHEMISTRY METHOD 07/05/2024 4:50 PM EDT [facility] Potassium 3.9 3.5 - 5.5 mmol/L LAB CHEMISTRY METHOD 07/05/2024 4:50 PM [facility] Chloride 103 96 - 110 mmol/L LAB CHEMISTRY METHOD 07/05/2024 4:50 PM [facility] CO2 26 21 - 32 mmol/L LAB CHEMISTRY METHOD 07/05/2024 4:50 PM [facility] Anion Gap 7 3 - 11 LAB CHEMISTRY METHOD 07/05/2024 4:50 PM [facility] Glucose 115(H) 70 - 100 mg/dL LAB CHEMISTRY METHOD 07/05/2024 4:50 PM [facility] BUN 20 5 - 25 mg/dL LAB CHEMISTRY METHOD 07/05/2024 4:50 PM [facility] Creatinine 1.64(H) 0.70 - 1.30 mg/dL LAB CHEMISTRY METHOD 07/05/2024 4:50 PM [facility] eGFR 45(L) >=60 mL/min/1. 73m2 LAB CHEMISTRY METHOD 07/05/2024 4:50 PM [facility] Comment:Calculation based on the Chronic Kidney Disease Epidemiology Collaboration (CKD-EPI) equation refit without adjustment for race. BUN/Creatinine Ratio 12.2 LAB CHEMISTRY METHOD 07/05/2024 4:50 PM [facility] Calcium 9.5 8.5 - 10.5 mg/dL LAB CHEMISTRY METHOD 07/05/2024 4:50 PM [facility] AST (SGOT) 21 10 - 42 unit/L LAB CHEMISTRY METHOD 07/05/2024 4:50 PM [facility] ALT (SGPT) 26 10 - 60 unit/L LAB CHEMISTRY METHOD 07/05/2024 4:50 PM [facility] Alkaline Phosphatase 118 42 - 121 unit/L LAB CHEMISTRY METHOD 07/05/2024 4:50 PM [facility] Total Protein 6.9 6.0 - 8.0 g/dL LAB CHEMISTRY METHOD 07/05/2024 4:50 PM EDT [facility] Albumin 4.1 3.2 - 5.0 g/dL LAB CHEMISTRY METHOD 07/05/2024 4:50 PM EDT [facility] Total Bilirubin 2.0(H) 0.0 - 1.4 mg/dL LAB CHEMISTRY METHOD 07/05/2024 4:50 PM EDT [facility] Blood Venous blood specimen / Unknown Venipuncture / Unknown 07/05/2024 3:39 PM EDT 07/05/2024 3:52 PM EDT David Martinez MD LAB BLOOD ORDERABLES Final Resu lt [facility] [address] [place] [address], * Lipid panel (12/28/2023) [facility] LDL/HDL Ratio 3 <=4 Triglycerides 150 <=150 mg/dL Cholesterol 141 <=200 mg/dL HDL 42 >=40 mg/dL LDL Cholesterol 69 <=100 mg/dL Blood Venous blood specimen / Unknown Gregory Boykin MD LAB BLOOD ORDERABLES Ann l Result * Colonoscopy (04/19/2019) [facility] Colonoscopy no interpretation , abstracted Anatomical Region Laterality Modality Other Gregory Boykin MD HEALTH MAINTENANCE Final Result * Hepatitis C Screening (11/25/2015) [facility] Hepatitis C Screening abstracted Historical Ashutosh SCHULTZ HEALTH MAINTENANCE Final Result from Last 3 Months or Most Recently Relevant to Health Maintenance Insurance [employer] Care Teams Area Manager Relationship Specialty Start Date End Date Don Rojas MD [address] [place] [address] PCP - General 07/21/1997
--- OUTSIDE RECORDS SUMMARY | 2024-12-20 12:04 | XMS_ITS ---
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 Past Treatment and Therapy Plans No past plan information found.
--- OUTSIDE RECORDS SUMMARY | 2024-12-20 12:04 | XMS_ITS | Clinical Summary ---
Author Organization [facility] Address [address] [place] [address] Care Team Providers Care Kick Press Operator Name Role Phone Unknown, Provider MD Primary Care Provider Unava ilable Social History [...] 1955 Fall Risk Screening 07/03/2020 COVID-19 Vaccine (2023-25 season) 2023 RSV Immunization ( o r 60+ Years) (1 - 1-dose 75+ series) 07/03/2030 Care Teams Kick Press Operator Relationship Specialty Start Date End Date Unknown, Provider, PCP - General 02/16/12
--- OUTSIDE RECORDS SUMMARY | 2024-12-20 12:04 | XMS_ITS | Clinical Summary ---
Author Organization [facility] Address [address] [place] [address] Phone Care Team Providers Care Outdoor Adventure Guides Name Role Phone Pcp, Unknown Primary Care Provider Courtney Song MD Unavailable [phone] Allergies No known active allergies Medications atorvastatin (LIPITOR) 20 MG tablet Take 1 tablet by mouth nightly. 06/29/2013 Active aspirin 81 MG EC tablet Take 81 mg by mouth daily. Active levothyroxine (SYNTHROID,LEVOT HROID) 25 MCG tablet Take 1 tablet by mouth every morning. 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 Overview (05/19/2014): Hodgkin's disease (clinical) Gout 05/24/2012 Overview (05/19/2014): Gout Uncoded H/O Deviated nasal s eptum - s/p repair many years ago 05/24/2012 Overview (05/19/2014): H/O Deviated nasal septum - s/p repair many years ago Immunizations Immunization Administration Dates Next Due DTaP-Hep B-IPV 08/05/2015,08/24/2014,06/20/2014 Hib, unspecified formulation 08/24/2014 Hib,PRP-T 08/05/2015,06/20/2014 Influenza Quadrivalent Prese rvative Free IM 01/17/2014 Influenza, Unspecified Formulation 06/14(Deferred: Other),05/19/2013(Deferred: Other - received chemo this admission) MMR 08/05/2015 Meningococcal MCV4P 06/20/2014 Pneumococcal conjugate PCV13 04/03/2014,01/18/20 14 Pneumococcal polysaccharide PPSV23 06/20/2014 Social History Tobacco Use Types Packs/Day Years Used Date Smoking Tobacco: Never Education Answer Date Recorded Are you interested in more education? Not on trent e 07/23/2022 Are you concerned about learning? Not on file 07/23/2022 No 07/23/2022 No 07/23/2022 Digital Access Answer Date Recorded No 08/24/2022 No 08/24/2022 No 08/24/2022 Reliable internet access at home? Not on file 08/24/2022 Device with a working camera? Not on file Sex and Gender Information Value Date Recorded Sex Assigned at Not on file Legal Sex Male 7:43 PM EST Gender Identity Not on file Sexual Orientation Not on file Last Filed Vital Signs Vital Sign Reading Time Taken Comments Blood Pressure 133/51 05/31/2024 1:33 PM EST Pulse 61 05/31/2024 1:33 PM EST Temperature 35.7 C (96.3 F) 05/31/2024 1:33 PM EST Respiratory Rate 16 05/31/2024 1:33 PM EST Oxygen Saturation 98% 05/31/2024 1:33 PM EST Inhaled Oxygen Concentration - - Weight 74.8 kg (165 lb) 05/31/2024 1:33 PM EST Height 180.3 cm (5' 11 ) 06/14/2015 11:50 AM EDT Body Mass Index 23.01 06/14/2015 11:50 AM EDT Plan of Treatment Upcoming Encounters Date Type Department Care Team (Late st Contact Info) Description 05/30/2025 12:30 PM EST Blood Draw [facility] [address], [address] [place] [address] Courtney Guillermo MD [address] [place], [place] [id number] [place] [address] [email or web address] 05/30/2025 1:20 PM EST Office Visit [facility] [address], [address] [place] [address] Courtney Guillermo MD [address] [place], [place] [id number] [place] [address] [email or web address] Health Maintenance Due Date Last Done Comments DEPRESSION SCREENING 1967 HEPATITIS C SCREENING 07/03/1973 ZOSTER VACCINES (1 of 2) 07/03/1974 COLOGUARD 07/03/2000 FIT TEST 07/03/2000 FOBT 07/03/2000 SIGMOIDOSCOPY 07/03/2000 VIRTUAL COLONOSCOPY 07/03/2000 RSV VACCINE (1 - Risk 60-74 years 1-dose series) 2015 PNEUMOCOCCAL VACCINES (50+ years) (3 of 3 - PPSV23, PCV20 or PCV21) 06/21/2019 06/20/2014, 04/03/2014, 01/17/2014, Additional history exists TSH LEVEL 06/03/2022 06/03/2021, 12/03/2015, 05/24/2015, Additional history exists COLONOSCOPY 10/04/2024 10/04/2014 COLORECTAL CANCER SCREENING 10/04/2024 INFLUENZA VACCINE (#1) 2024 , 01/13/2019, 02/15/2017, Additional history exists COVID-19 VACCINE (2024- season) 2024 05/19/2021, 06/26/2020, 06/05/2020 Adult Td,Tdap Booster 08/04/2025 08/05/2015 , 08/24/2014, 06/20/2014, Additional history exists LIPID PANEL 12/27/2028 12/28/2023, 06/05/2013 MENINGOCOCCAL VACCINES (ACWY) Aged Out 06/20/2014 No longer eligible based on patient's age to complete this topic HIB VACCINES Aged Out 08/25/2015, 050 11/2015, 08/24/2014, Additional history exists No longer eligible based on patient's age to complete this topic SMOKING STATUS SCREENING (Once After 26 Yrs) Completed 06/30/2016 HEPATITIS A VACCINES Aged Out No long er eligible based on patient's age to complete this topic MENINGOCOCCAL VACCINES (B) Aged Out N o longer eligible based on patient's age to complete this topic Medical Devices Not on file Procedures Procedure Name Priority Date/Time Associated Diagnosis Comments TSH WITH REFLEX Routine 06/03/2021 9:10 AM EST Nodular lymphocyte predominant Hodgkin lymphoma, unspecified body region S/P autologous bone marrow transplantation ENDOSCOPY, COLON 10/04/2014 12:3 8 PM EDT HISTORICAL LAB Routine 06/05/2013 12:40 PM EDT from Last 3 Months or Most Recently Relevant to Health Maintenance Results * (ABNORMAL) TSH with reflex (06/03/2021 9:10 AM EST) SCREENING PANEL: TSH 5.02(H) 0.40 - 5.00 uIU/mL [facility] 06/03/2021 9:10 AM EST 06/03/2021 9:22 AM EST us Courtney Guillermo MD LAB BLOOD ORDERABLES Final Resu lt [address] [address] * ENDOSCOPY, COLON (10/04/2014 12:38 PM EDT) 10/04/2014 12:3 8 PM EDT Narrative 10/04/2014 12:58 PM EDT Report Number: [id number] Report Status: Final Type: Colonoscopy Date: 10/04/2014 12:38 [id number] [facility] [id number] Patient Name: Gibson Og Exam Date: 10/04/2014 12:38 PM Date of : 1955 Age: 59 Gender: Male Note Status: Finalized Attending MD: Jia Kim MD Procedure: Colonoscopy Indications: Clinically significant diarrhea of unexplained origin Providers: Jia Kim MD Referring MD: Jia Kim MD (Referring MD) Medicines: Midazolam 1 mg IV, Fentanyl 25 micrograms IV Complications: No immediate complications. Procedure: Pre-Anesthesia Assessment: - Prior to the procedure, a History and Physical was performed, and patient medications and allergies were reviewed. The patient is competent. The risks and benefits of the procedure and the sedation options and risks were discussed with the patient. All questions were answered and informed consent was obtained. Patient identification and proposed procedure were verified by the physician and the nurse in the pre-procedure area in the procedure room. Mental Status Examination: alert and oriented. Airway Examination: normal oropharyngeal airway and neck mobility. Respiratory Examination: clear to auscultation. CV Examination: normal. Prophylactic Antibiotics: The patient does not require prophylactic antibiotics. Prior Anticoagulants: The patient has taken no previous anticoagulant or antiplatelet agents. ASA Grade Assessment: II - A patient with mild systemic disease. After reviewing the risks and benefits, the patient was deemed in satisfactory condition to undergo the procedure. The anesthesia plan was to use moderate sedation / analgesia (conscious sedation). Immediately prior to administration of medications, the patient was re-assessed for adequacy to receive sedatives. The heart rate, respiratory rate, oxygen saturations, blood pressure, adequacy of pulmonary ventilation, and response to care were monitored throughout the procedure. The physical status of the patient was re-assessed after the procedure. - ASA Grade Assessment: II - A patient with mild systemic disease. After obtaining informed consent, the endoscope was passed under direct vision. Throughout the procedure, the patient's blood pressure, pulse, and oxygen saturations were monitored continuously. The Colonoscope was introduced through the anus and advanced to the the cecum, identified by appendiceal orifice and ileocecal valve. The colonoscopy was performed without difficulty. The patient tolerated the procedure well. The quality of the bowel preparation was good. Findings: The entire examined colon appeared normal. Biopsies were taken with a cold forceps for histology throughout colon. The retroflexed view of the distal rectum and anal verge was normal and showed no anal or rectal abnormalities. Impression: - The entire examined colon is normal. Biopsied. - The distal rectum and anal verge are normal on retroflexion view. Recommendation: - Await pathology results. Jia Kim MD, [id number] 10/04/2014 12:58 PM The attending physician was present throughout the entire procedure. Number of Addenda: 0 Note Initiated On: 10/04/2014 12:38 PM Procedure Note Unknown, Unknown, MD - 10/04/2014 12:38 PM EDT Report Number: [id number] Report Status:Final Type: Colonoscopy Date: 10/04/2014 12:38 [id number] [facility] Unit [id number] Patient Name: Gibson Og Exam Date: 10/04/2014 12:38 PM Date of : 1955 Age: 59 Gender: Male Note Status: Finalized Attending MD: Jia Kim MD Procedure: Colonoscopy Indications: Clinically significant diarrhea of unexplained origin Providers: Jia Kim MD Referring MD: Jia Kim MD (Referring MD) Medicines: Midazolam 1 mg IV, Fentanyl 25 micrograms IV Complications: No immediate complications. Procedure: Pre-Anesthesia Assessment: - Prior to the procedure, a History and Physical was performed, and patient medications and allergies were reviewed. The patient is competent. The risks and benefits of the procedure and the sedation options and risks were discussed with the patient. All questions were answered and informed consent was obtained. Patient identification and proposed procedure were verified by the physician and the nurse in the pre-procedure area in the procedure room. Mental Status Examination: alert and oriented. Airway Examination: normal oropharyngeal airway and neck mobility. Respiratory Examination: clear to auscultation. CV Examination: normal. Prophylactic Antibiotics: The patient does not require prophylactic antibiotics. Prior Anticoagulants: The patient has taken no previous anticoagulant or antiplatelet agents. ASA Grade Assessment: II - A patient with mild systemic disease. After reviewing the risks and benefits, the patient was deemed in satisfactory condition to undergo the procedure. The anesthesia plan was to use moderate sedation / analgesia (conscious sedation). Immediately prior to administration of medications, the patient was re-assessed for adequacy to receive sedatives. The heart rate, respiratory rate, oxygen saturations, blood pressure, adequacy of pulmonary ventilation, and response to care were monitored throughout the procedure. The physical status of the patient was re-assessed after the procedure. - ASA Grade Assessment: II - A patient with mild systemic disease. After obtaining informed consent, the endoscope was passed under direct vision. Throughout the procedure, the patient's blood pressure, pulse, and oxygen saturations were monitored continuously. The Colonoscope was introduced through the anus and advanced to the the cecum, identified by appendiceal orifice and ileocecal valve. The colonoscopy was performed without difficulty. The patient tolerated the procedure well. The quality of the bowel preparation was good. Findings: The entire examined colon appeared normal. Biopsies were taken with a cold forceps for histology throughout colon. The retroflexed view of the distal rectum and anal verge was normal and showed no anal or rectal abnormalities. Impression: - The entire examined colon is normal. Biopsied. - The distal rectum and anal verge are normal on retroflexion view. Recommendation: - Await pathology results. Jia Kim MD, [id number] 10/04/2014 12:58 PM The attending physician was present throughout the entire procedure. Number of Addenda: 0 Note Initiated On: 10/04/2014 12:38 PM Jia Kim MD GI PROCEDURE ORDERA BLES Final Result * (ABNORMAL) Historical Lab (06/05/2013 12:40 PM EDT) Calcium 8.9 8.5 - 10.5 mg/dl [facility] Albumin 4.0 3.3 - 5.0 g/dl [facility] Total Bilirubin 0.4 0.0 - 1.0 mg/dl [facility] Direct Bilirubin 0.1 0 - 0.4 mg/dl [facility] Alkaline Phosphatase 135(Abnor lorenza H) 45 - 115 U/L [facility] Transaminase-SGOT 25 10 - 40 U/L [facility] Transaminase-SGPT 32 10 - 55 U/L [facility] Total Protein 5.7(Abnor lorenza L) 6.0 - 8.3 g/dl [facility] Globulin 1.7(Abnor lorenza L) 2.3 - 4.1 g/dl [facility] Lactic Dehydrogenase 214(Abnor lorenza H) 110 - 210 U/L [facility] High Density Lipoprotein 32(Abnorm ally L) 35 - 100 mg/dl [facility] Cholesterol 197 mg/dl [facility] Comment:DESIRABLE: <200 Triglycerides 396(Abnor lorenza H) 40 - 150 mg/dl [facility] Low Density Lipoprotein 86 mg/dl [facility] Comment:DESIRABLE: <130 Cardiac Risk Ratio 6.2 [facility] Comment:NORMAL RISK RATIO: 5 .0 OR LESS Magnesium 1.5 1.4 - 2.0 meq/L [facility] Plasma Anion GAP 11 3 - 15 mmol/L [facility] Plasma Urea Nitrogen 18 8 - 25 mg/dl [facility] Plasma Chloride 104 100 - 108 mmol/L [facility] Plasma Creatinine 0.79 0.60 - 1.50 mg/dl [facility] eGFR >60 mL/min/1. 73m2 [facility] Comment: Abnormal if <60 mL/min/1.73m2. If patient is -[place], multiply the result by 1.21. Plasma Glucose 95 70 - 110 mg/dl [facility] Phosphorus 2.4(Abnor lorenza L) 2.6 - 4.5 mg/dl [facility] Plasma Potassium 3.6 3.4 - 4.8 mmol/L [facility] Plasma Carbon Dioxide 25.8 23.0 - 31.9 mmol/L [facility] Plasma Sodium 141 135 - 145 mmol/L [facility] Uric Acid 4.2 3.6 - 8.5 mg/dl [facility] 06/05/2013 12:4 0 PM EDT 06/05/2013 1:28 PM EDT Comment:BLOOD Karla Wilkinson MD LAB BLOOD ORDERABLES Final Result [address] [address] from Last 3 Months or Most Recently Relevant to Health Maintenance Insurance [employer] RE[employer] [address] [facility] [place] [employer] JAYDEN HERMAN [id number] Advance Directives For more information, please contact: [phone] (9AM - 5PM [facility], Wednesday-Wednesday) Documents on File Type Date Recorded Patient Pilot Captain Expl anation Advance Directive - Non Epic LMR 07/05/2013 12:00 AM Care Teams Outdoor Adventure Guides Relationship Specialty Start Date End Date Pcp, Unknown PCP - General 09/26/13 Courtney Guillermo MD [address] [place] [address] [email or web address] Primary Oncologist Medical Oncology 04/29/18 Additional Source Comments The information contained in this document represents components of the legal health record. It is not the complete legal health record.[facility]
--- OUTSIDE RECORDS SUMMARY | 2024-12-20 12:04 | XMS_ITS ---
Author Name [facility] Organization Unknown Care Team Organization Name Specialty Phone Email Start Date End Da te [facility] 11/15/2024 [facility] 02/03/2022 11/15/2023
--- OUTSIDE RECORDS SUMMARY | 2024-12-20 12:04 | XMS_ITS | Patient Health Record ---
Author Organization [facility] Address [address] [facility] [place] [address] Care Team Providers Care Photogrammetry Airplane Pilot Name Role Phone Don Rojas MD Primary Care Provider Unav ailable Bran Quigley Unavailable [phone] Allergies Allergen (clinical drug ingredient) Drug/Non Drug [...] atherosclerosis of arteries of lower limbs (disorder) ([id number] ) Atherosclerosis of elim ira artery of both lower extremities, with unspecified presence of clinical manifestation (I70.203) Active confirmed Plan Of Treatment Pending Test Test Name Order Date X ray : Foot, right 3V 12/22/2022 Insurance Providers Payer Name Payer Address Payer Phone Subscriber Number Group Number Insured Name Patient Relationship to Insured Coverage Start Date Coverage End Date [employer] Preferred [address] [place] [address] [id number] Gibson Og Self - patient is the insured Medical (General) History Medical History History ICD Code Broken bones covid-19 Heart disease Cancer Transfusions Rotator cuff concerns Surgical History Surgery Date(Month/Year) Stent 02/2013
== END ==
LOC: HO.CARD 09:58
PROVIDERS: PCP Internal Medicine; Visit Provider Internal Medicine Cardiovascular Disease
DX: I42.9 Cardiomyopathy, unspecified (principal)
CPT/HCPCS: 93306

== ENCOUNTER → 2024-12-20 10:01 | Outpatient (BNV) | payer MEDICARE, SELFPAY | PROVIDERS: PCP Internal Medicine; Visit Provider Internal Medicine Cardiovascular Disease | DX: I42.9 Cardiomyopathy, unspecified (principal); I35.1 Nonrheumatic aortic (valve) insufficiency; I34.0 Nonrheumatic mitral (valve) insufficiency | CPT/HCPCS: 93306 ==

== ENCOUNTER → 2025-02-28 10:39 | Outpatient (REF) | payer MEDICARE, SELFPAY ==
--- OUTSIDE RECORDS SUMMARY | 2025-02-28 12:14 | XMS_ITS | Clinical Summary ---
Author Organization [facility] Address [address] [place] [phone] Phone Care Team Providers Care Sponge Fisherman Name Role Phone Don Rojas MD Primary Care Provider [phone] Allergies No known active allergies Medications aspirin 81 mg EC tablet Take 1 tablet (81 mg total) by mouth 1 (one) time each day. 4 Active atorvastatin (LIPITOR) 40 mg tablet 1 (one) time each day. Active nitroglycerin (NITROSTAT) 0.[address] 1 Tablet under the tongue every 5 minutes as needed. Prescribed by Dr. 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 02/18/2015 DX:Coronary ar quynh disease involving ute coronary artery without angina pectoris; COMMENT: stent [...] Safety Answer Date Record ed Physical Abuse Unrecognized value 07/20/2024 Verbal Abuse Unrecognized value 07/20/2024 Sex and Gender Information Value Date [...] 8:45 AM EST Office Visit Adult Medicine [address] [phone] Don Rojas MD [address] [place], [place] Health Maintenance Due Date Last Done Comments Zoster Vaccines (1 of 2) 07/03/1974 RSV Immunization Adult Patients (1 - Risk 50-74 years 1-dose series) 07/03/2005 Hepatitis B Vaccines (3 of 3 - 19+ 3-dose series) 09/30/2015 08/05/2015, 08/05/2015, 08/24/2014, Additional history exists Pneumococcal Vaccine: 50+ Years (3 of 3 - PCV20 or PCV21) 06/21/2019 06/20/2014, 04/03/2014, 01/17/2014, [...] this topic Medical Devices Implanted Type Area Warehouse Packaging Supervisor Device Identifier Shelf Expiration Date Model / Serial / Lot Stent Uret [id number] Contr Percuflex Hydroplus - Sn/A - [id number] Implanted:Qty: 1 on 07/20/2024 by Vanessa Soliamn MD at [facility] Stents Right: Ureter [employer] Y 03/15/2027 [id number] / N/A / [id number] Procedures Procedure Name Priority Date/Time Associated Diagnosis Comments COMPREHENSIVE METABOLIC PANEL STAT 07/05/2024 3:39 PM EDT LIPID PANEL Routine 12/28/2023 COLONOSCOPY Routine 04/19/2019 HEPATITIS C SCREENING Routine 11/25/2015 from Last 3 Months or Most Recently Relevant to Health Maintenance Results * (ABNORMAL) Comprehensive metabolic panel (07/05/2024 3:39 PM EDT) Sodium 136 133 - 145 mmol/L LAB CHEMISTRY METHOD 07/05/2024 4:50 PM [facility] Potassium 3.9 3.5 - 5.5 mmol/L LAB CHEMISTRY METHOD 07/05/2024 4:50 PM EDT [facility] Chloride 103 96 - 110 mmol/L LAB CHEMISTRY METHOD 07/05/2024 4:50 PM [facility] CO2 26 21 - 32 mmol/L LAB CHEMISTRY METHOD 07/05/2024 4:50 PM [facility] Anion Gap 7 3 - 11 LAB CHEMISTRY METHOD 07/05/2024 4:50 PM [facility] Glucose 115(H) 70 - 100 mg/dL LAB CHEMISTRY METHOD 07/05/2024 4:50 PM [facility] BUN 20 5 - 25 mg/dL LAB CHEMISTRY METHOD 07/05/2024 4:50 PM [facility] Creatinine 1.64(H) 0.70 - 1.30 mg/dL LAB CHEMISTRY METHOD 07/05/2024 4:50 PM [facility] eGFR 45(L) >=60 mL/min/1. 73m2 LAB CHEMISTRY METHOD 07/05/2024 4:50 PM [facility] Comment:Calculation based on the Chronic Kidney Disease Epidemiology Collaboration (CKD-EPI) equation refit without adjustment for race. BUN/Creatinine Ratio 12.2 LAB CHEMISTRY METHOD 07/05/2024 4:50 PM [facility] Calcium 9.5 8.5 - 10.5 mg/dL LAB CHEMISTRY METHOD 07/05/2024 4:50 PM [facility] AST (SGOT) 21 10 - 42 unit/L LAB CHEMISTRY METHOD 07/05/2024 4:50 PM [facility] ALT (SGPT) 26 10 - 60 unit/L LAB CHEMISTRY METHOD 07/05/2024 4:50 PM [facility] Alkaline Phosphatase 118 42 - 121 unit/L LAB CHEMISTRY METHOD 07/05/2024 4:50 PM [facility] Total Protein 6.9 6.0 - 8.0 g/dL LAB CHEMISTRY METHOD 07/05/2024 4:50 PM [facility] Albumin 4.1 3.2 - 5.0 g/dL LAB CHEMISTRY METHOD 07/05/2024 4:50 PM [facility] Total Bilirubin 2.0(H) 0.0 - 1.4 mg/dL LAB CHEMISTRY METHOD 07/05/2024 4:50 PM [facility] Blood Venous blood specimen / Unknown Venipuncture / Unknown 07/05/2024 3:39 PM EDT 07/05/2024 3:52 PM EDT David Martinez MD LAB BLOOD ORDERABLES Final Resu lt [facility] [address] [place] [address], [place] [phone] * Lipid panel (12/28/2023) LDL/HDL Ratio 3 <=4 Triglycerides 150 <=150 mg/dL Cholesterol 141 <=200 mg/dL HDL 42 >=40 mg/dL LDL Cholesterol 69 <=100 mg/dL Blood Venous blood specimen / Unknown Historical Provider LAB BLOOD ORDERABLES Ann l Result * Colonoscopy (04/19/2019) Pathologist [facility] Colonoscopy no interpretation , abstracted Anatomical Region Laterality Modality Other Historical Provider HEALTH MAINTENANCE Final Result * Hepatitis C Screening (11/25/2015) Pathologist [facility] Hepatitis C Screening abstracted Historical Provider HEALTH MAINTENANCE Final Result from Last 3 Months or Most Recently Relevant to Health Maintenance Insurance [employer] Care Teams Sponge Fisherman Relationship Specialty Start Date End Date Don Rojas MD [address] [place] [id number] PCP - General 07/21/1997
--- OUTSIDE RECORDS SUMMARY | 2025-02-28 12:14 | XMS_ITS | Clinical Summary ---
Author Organization [facility] Address [address] [place] [id number] Care Team Providers Care Milieu Manager Name Role Phone Unknown, Provider MD Primary [...] 1955 Fall Risk Screening 07/03/2020 COVID-19 Vaccine (2024- season) 2024 RSV Immunization ( o r 60+ Years) (1 - 1-dose 75+ series) 07/03/2030 Care Teams Milieu Manager Relationship Specialty Start Date End Date Unknown, Provider, PCP - General 02/16/12
--- OUTSIDE RECORDS SUMMARY | 2025-02-28 12:15 | XMS_ITS | Clinical Summary ---
Author Organization [facility] Address [address] [place] [address] Phone Care Team Providers Care Office Support Associate Name Role Phone Pcp, Unknown Primary Care Provider Courtney Song MD Unavailable [phone] Allergies No known active allergies Medications [...] Description 05/30/2025 12:30 PM EST Blood Draw [facility] [address], [address], [address] [place] [address] Courtney Guillermo MD [id number] [place] [address] [email or web address] 05/30/2025 1:20 PM EST Office Visit [facility] [address], [address], [address] [place] [address] Courtney Guillermo MD [address] [place], [place] [id number] [place] [address] [email or web address] Health Maintenance Due Date Last Done Comments DEPRESSION SCREENING 1967 HEPATITIS C SCREENING 07/03/1973 ZOSTER VACCINES (1 of 2) 07/03/1974 COLOGUARD 07/03/2000 FIT TEST 07/03/2000 FOBT 07/03/2000 SIGMOIDOSCOPY 07/03/2000 VIRTUAL COLONOSCOPY 07/03/2000 PNEUMOCOCCAL VACCINES (50+ years) (3 of 3 - PCV20 or PCV21) 06/21/2019 06/20/2014, 04/03/2014, 01/17/2014, Additional history exists TSH LEVEL 06/03/2022 06/03/2021, 12/03/2015, 05/24/2015, Additional history exists COLONOSCOPY 10/04/2024 10/04/2014 COLORECTAL CANCER SCREENING 10/04/2024 INFLUENZA VACCINE (#1) 2024 , 01/13/2019, 02/15/2017, Additional history exists COVID-19 VACCINE ( - 2024- season) 2024 05/19/2021, 06/26/2020, 06/05/2020 Adult Td,Tdap Booster 08/04/2025 08/05/2015 , 08/24/2014, 06/20/2014, Additional history exists LIPID PANEL 12/27/2028 12/28/2023, 06/05/2013 RSV VACCINE (1 - 1-dose 75+ series) 07/03/2030 MENINGOCOCCAL VACCINES (ACWY) Aged Out 06/20/2014 No longer eligible based on patient's age to complete this topic HIB VACCINES Aged Out 08/25/2015, 11/2015, 08/24/2014, Additional history exists No longer eligible based on patient's age to complete this topic IPV VACCINES Completed 08/25/2015, 11/2015, 08/05/2015, Additional history exists SMOKING STATUS SCREENING (Once After 26 Yrs) [...] PANEL: TSH 5.02(H) 0.40 - 5.00 uIU/mL [facility] 06/03/2021 9:10 AM EST 06/03/2021 9:22 AM EST us Courtney Guillermo MD LAB BLOOD BKR ORDERABLES Final Result [address] [address] * ENDOSCOPY, COLON (10/04/2014 12:38 PM EDT) 10/04/2014 12:3 8 PM EDT Narrative 10/04/2014 12:58 PM EDT Report Number: [id number] Report Status: Final Type: Colonoscopy Date: 10/04/2014 12:38 [id number] Gastro[facility] Endoscopy Unit [phone] Patient Name: Gibson Og Exam Date: 10/04/2014 [...] - Await pathology results. Jia Kim MD, [id number] 10/04/2014 12:58 PM The attending physician was present throughout the entire procedure. Number of Addenda: 0 Note Initiated On: 10/04/2014 12:38 PM Procedure Note Unknown, Unknown, MD - 10/04/2014 12:38 PM EDT Report Number: [id number] Report Status:Final Type: Colonoscopy Date: 10/04/2014 12:38 [id number] [facility] Unit [phone] Patient Name: Gibson Og Exam Date: 10/04/2014 [...] - Await pathology results. Jia Kim MD, [id number] 10/04/2014 12:58 PM The attending physician was present throughout the entire procedure. Number of Addenda: 0 Note Initiated On: 10/04/2014 12:38 PM Jia Kim MD GI PROCEDURE ORDERA BLES Final Result * (ABNORMAL) Historical Lab (06/05/2013 12:40 PM EDT) Calcium 8.9 8.5 - 10.5 mg/dl [facility] Albumin 4.0 3.3 - 5.0 g/dl [facility] Total Bilirubin 0.4 0.0 - 1.0 mg/dl [facility] Direct Bilirubin 0.1 0 - 0.4 mg/dl [facility] Alkaline Phosphatase 135(Abnor lorenza H) 45 - 115 U/L [facility] Transaminase-SGOT 25 10 - 40 U/L [facility] Transaminase-SGPT 32 10 - 55 U/L [facility] Total Protein 5.7(Abnor lorenza L) 6.0 - 8.3 g/dl [facility] Globulin 1.7(Abnor lorenza L) 2.3 - 4.1 g/dl [facility] Lactic Dehydrogenase 214(Abnor lorenza H) 110 - 210 U/L [facility] High Density Lipoprotein 32(Abnorm ally L) 35 - 100 mg/dl [facility] Cholesterol 197 mg/dl [facility] Comment:DESIRABLE: <200 Triglycerides 396(Abnor lorenza H) 40 - 150 mg/dl [facility] Low Density Lipoprotein 86 mg/dl [facility] Comment:DESIRABLE: <130 Cardiac Risk Ratio 6.2 [facility] Comment:NORMAL RISK RATIO: 5 .0 OR LESS Magnesium 1.5 1.4 - 2.0 meq/L [facility] Plasma Anion GAP 11 3 - 15 mmol/L [facility] Plasma Urea Nitrogen 18 8 - 25 mg/dl [facility] Plasma Chloride 104 100 - 108 mmol/L [facility] Plasma Creatinine 0.79 0.60 - 1.50 mg/dl [facility] eGFR >60 mL/min/1. 73m2 [facility] Comment: Abnormal if <60 mL/min/1.73m2. If patient is -Tajik, multiply the result by 1.21. Plasma Glucose 95 70 - 110 mg/dl [facility] Phosphorus 2.4(Abnor lorenza L) 2.6 - 4.5 mg/dl [facility] Plasma Potassium 3.6 3.4 - 4.8 mmol/L [facility] Plasma Carbon Dioxide 25.8 23.0 - 31.9 mmol/L [facility] Plasma Sodium 141 135 - 145 mmol/L [facility] Uric Acid 4.2 3.6 - 8.5 mg/dl [facility] 06/05/2013 12:4 0 PM EDT 06/05/2013 1:28 PM EDT Comment:BLOOD Karla Wilkinson MD LAB BLOOD ORDERABLES Final Result [facility] [address] [place] [address] from Last 3 Months or Most Recently Relevant to Health Maintenance Insurance [employer] JAYDEN HERMAN [id number] Advance Directives For more information, please contact: [phone] (9AM - 5PM [facility], Wednesday-Wednesday) Documents on File Type Date Recorded Patient Correctional Supervising Cook Expl anation Advance Directive - Non Epic LMR 07/05/2013 12:00 AM Care Teams Office Support Associate Relationship Specialty Start Date End Date Pcp, Unknown PCP - General 09/26/13 Courtney Guillermo MD [address] [place] [id number] [email or web address] Primary Oncologist Medical Oncology 04/29/18 Additional Source Comments The information contained in this document represents components of the legal health record. It is not the complete legal health record.[facility]
--- OUTSIDE RECORDS SUMMARY | 2025-02-28 12:15 | XMS_ITS | Patient Health Record ---
Author Organization [facility] Address [address] [place] [address] Care Team Providers Care Machine Sander Name Role Phone Don Rojas MD Primary Care Provider Unav ailable Bran Quigley Unavailable [phone] Allergies Allergen (clinical drug ingredient) Drug/Non Drug [...] atherosclerosis of arteries of lower limbs (disorder) ([id number] ) Atherosclerosis of [place] artery of both lower extremities, with unspecified presence of clinical manifestation (I70.203) Active confirmed Plan Of Treatment Pending Test Test Name Order Date X ray : Foot, right 3V 12/22/2022 Insurance Providers Payer Name Payer Address Payer Phone Subscriber Number Group Number Insured Name Patient Relationship to Insured Coverage Start Date Coverage End Date [employer] Preferred [address] [place] [address] [phone] [id number] Gibson Og Self - patient is the insured Medical (General) History Medical History History ICD Code Broken bones covid-19 Heart disease Cancer Transfusions Rotator cuff concerns Surgical History Surgery Date(Month/Year) Stent 02/2013
--- OUTSIDE RECORDS SUMMARY | 2025-02-28 12:15 | XMS_ITS ---
Author Organization [facility] Address [address] [place] [address] Phone Care Team Providers Care Mother Tester Name Role Phone Pcp, Unknown Primary Care Provider Courtney Song MD Unavailable [phone] Active Problems Problem Noted Date Diagnosed [...]
== END ==
LOC: HO.CARD 10:39
PROVIDERS: Visit Provider Internal Medicine Cardiovascular Disease
DX: I49.3 Ventricular premature depolarization (principal); I42.9 Cardiomyopathy, unspecified
CPT/HCPCS: 93242

== ENCOUNTER → 2025-02-28 10:45 | Outpatient (BNV) | payer MEDICARE, SELFPAY | PROVIDERS: Visit Provider Internal Medicine Cardiovascular Disease | DX: I49.1 Atrial premature depolarization (principal); I49.3 Ventricular premature depolarization | CPT/HCPCS: 93244 ==